=== PATIENT | female | born 1960 | race Caucasian/White ===

== ENCOUNTER → 2017-12-17 | Outpatient (CLI) | payer OTHER ==
[~2017-12-17] MED LIST: ATEN100; LASIX; LEVSOD25 PO; LISI20; POTCHL10ER PO; WARF2.5
[2017-12-17 15:15] LABS: BASOPHILS ABSOLUTE AUTO 0.03 K/mm3 (0.00-0.23); BASOPHILS PERCENT AUTO 1 % (0-2); EOSINOPHILS ABSOLUTE AUTO 0.31 K/mm3 (0.00-0.68); EOSINOPHILS PERCENT AUTO 6 % (0-6); Hematocrit 37.9 % (33.0-51.0); Hemoglobin 11.6 g/dL (11.5-16.0); IMMATURE GRAN ABSOLUTE AUTO 0.02 K/mm3 (0.00-0.10); IMMATURE GRAN PERCENT AUTO 0 % (0-1); LYMPHOCYTES ABSOLUTE AUTO 0.77 K/mm3 (0.84-5.20); LYMPHOCYTES PERCENT AUTO 14 % (21-46); MONOCYTES ABSOLUTE AUTO 0.31 K/mm3 (0.16-1.47); MONOCYTES PERCENT AUTO 6 % (4-13); Mean Corpuscular HGB 29.3 pg (26.0-34.0); Mean Corpuscular HGB Conc 30.6 g/dL (31.5-36.5); Mean Corpuscular Volume 96 fL (80-100); Mean Platelet Volume 12.9 fL (9.1-12.4); NEUTROPHILS ABSOLUTE AUTO 3.96 K/mm3 (1.96-9.15); NEUTROPHILS PERCENT AUTO 73 % (41-73); Platelet Count 135 K/mm3 (150-400); RDW Coefficient Variation 13.2 % (11.7-14.2); RDW Standard Deviation 46.5 fL (35.1-46.3); Red Blood Cell Count 3.96 M/mm3 (3.80-5.20)
[2017-12-17 15:34] LABS: Alanine Aminotransfer (ALT/SGP 25 U/L (12-78); Albumin, Blood 3.3 g/dL (3.4-5.0); Alk Phos 78 U/L (50-136); Anion Gap 7 mmol/L (6-16); Aspartate Aminotrans (AST/SGOT 23 U/L (12-37); Bilirubin, Total 0.8 mg/dL (0.1-1.0); Blood Urea Nitrogen 23 mg/dL (8-24); Bun/Creatinine Ratio 21.3 (12.0-20.0); CHOL/HDL RATIO 3.2; CO2, Blood 30 mmol/L (21-32); Calcium, Blood 8.4 mg/dL (8.5-10.1); Chloride, Blood 105 mmol/L (98-108); Cholesterol 135 mg/dL (50-200); Creatinine, Blood 1.08 mg/dL (0.40-1.00); Glomerular Filtration Rate 55 (60-); Glucose, Blood 98 mg/dL (70-99); HDL Cholesterol 42 mg/dL (>39); LDL/HDL RATIO 1.6; Low Density Lipoprotein Chol 69 mg/dL (0-110); Potassium, Blood 4.6 mmol/L (3.5-5.5); Sodium, Blood 142 mmol/L (136-145); Triglycerides 122 mg/dL (30-160); Very Low Density Lipoprot Chol 24 mg/dL (6-32)
[2017-12-17 15:42] LABS: Albumin/Globulin Ratio 0.8 (0.8-1.8); Globulin, Blood 3.9 g/dL (2.2-4.0); Total Protein, Blood 7.2 g/dL (6.4-8.2)
== END | disposition home or self-care (01) ==
LOC: OLS 12:11
PROVIDERS: Nurse Practitioner Family
DX: E78.5 Hyperlipidemia, unspecified (principal); E03.9 Hypothyroidism, unspecified; E55.9 Vitamin D deficiency, unspecified; R73.09 Other abnormal glucose; I10 Essential (primary) hypertension
CPT/HCPCS: 80053; 80061; 82652; 84443; 85025

== ENCOUNTER 2019-08-20 14:43 | Inpatient (IN) | payer OTHER ==
[~2019-08-20] VITALS: Ht 154.9 cm; Wt 251.6 kg
[~2019-08-20 14:43] MED LIST changes: -ATEN100; +FURO40 PO; -LASIX; -LEVSOD25 PO; +LEVSOD50 PO; +METO50ER PO; +POTA20PAC; -POTCHL10ER PO
[2019-08-20 15:13] LABS: BASOPHILS ABSOLUTE AUTO 0.01 K/mm3 (0.00-0.23); BASOPHILS PERCENT AUTO 0 % (0-2); EOSINOPHILS ABSOLUTE AUTO 0.18 K/mm3 (0.00-0.68); EOSINOPHILS PERCENT AUTO 4 % (0-6); Hematocrit 29.2 % (33.0-51.0); Hemoglobin 8.5 g/dL (11.5-16.0); IMMATURE GRAN ABSOLUTE AUTO 0.02 K/mm3 (0.00-0.10); IMMATURE GRAN PERCENT AUTO 0 % (0-1); LYMPHOCYTES ABSOLUTE AUTO 0.42 K/mm3 (0.84-5.20); LYMPHOCYTES PERCENT AUTO 8 % (21-46); MONOCYTES ABSOLUTE AUTO 0.39 K/mm3 (0.16-1.47); MONOCYTES PERCENT AUTO 8 % (4-13); Mean Corpuscular HGB 30.8 pg (26.0-34.0); Mean Corpuscular HGB Conc 29.1 g/dL (31.5-36.5); Mean Corpuscular Volume 106 fL (80-100); Mean Platelet Volume 12.1 fL (9.1-12.4); NEUTROPHILS ABSOLUTE AUTO 4.14 K/mm3 (1.96-9.15); NEUTROPHILS PERCENT AUTO 80 % (41-73); Platelet Count 112 K/mm3 (150-400); RDW Standard Deviation 53.2 fL (35.1-46.3); Red Blood Cell Count 2.76 M/mm3 (3.80-5.20); White Blood Cell Count 5.16 K/mm3 (4.00-11.30)
[2019-08-20 15:31] LABS: Alanine Aminotransfer (ALT/SGP 17 U/L (12-78); Albumin, Blood 3.1 g/dL (3.4-5.0); Albumin/Globulin Ratio 0.8 (0.8-1.8); Alk Phos 75 U/L (50-136); Anion Gap 2 mmol/L (6-16); Aspartate Aminotrans (AST/SGOT 14 U/L (12-37); Bilirubin, Total 0.6 mg/dL (0.1-1.0); Blood Urea Nitrogen 44 mg/dL (8-24); Bun/Creatinine Ratio 26.2 (12.0-20.0); CO2, Blood 26 mmol/L (21-32); Calcium, Blood 8.9 mg/dL (8.5-10.1); Chloride, Blood 114 mmol/L (98-108); Creatinine, Blood 1.68 mg/dL (0.40-1.00); Globulin, Blood 3.7 g/dL (2.2-4.0); Glomerular Filtration Rate 33 (60-); Glucose, Blood 118 mg/dL (70-99); Potassium, Blood 5.5 mmol/L (3.5-5.5); Sodium, Blood 142 mmol/L (136-145); Total Protein, Blood 6.8 g/dL (6.4-8.2); Troponin I <0.015 ng/mL (0.000-0.040)
[2019-08-20 15:40] LABS: Source, Urine Catheter
[2019-08-20 15:59] LABS: Bilirubin, Urine Neg (Neg); Blood, Urine 3+ (Neg); Color, Urine Yellow (P-Yellow); Glucose Qualitative, Urine Neg (Neg); Ketones, Urine Neg (Neg); Leukocyte Esterase, Urine 1+ (Neg); Nitrite, Urine Pos (Neg); Protein, Urine 1+ (Neg); Urobilinogen, Urine NORM (Normal)
[2019-08-20] MEDS ORDERED: THERA-D2000 UNIT PO (16:42)
[2019-08-20 16:44] LABS: Appearance, Urine Hazy (Clear)
[2019-08-20] MEDS ORDERED: SPIRIVA RESPIMAT4 G1 INH (16:45)
[2019-08-20] MEDS ORDERED: LOSA50 PO (16:45)
[2019-08-20 16:46] LABS: Amorphous Light (0-Heavy); Bacteria Many /hpf; Hyaline Casts 0-2 /lpf (0-2); Squamous Epithelial Cells Mod /hpf (Few)
[2019-08-20] MEDS ORDERED: BUDE6HFA INH (16:52)
[2019-08-20] MEDS ORDERED: Magnesium500 M1 PO (16:54)
[2019-08-20 18:08] LABS: Percent Saturation 19.8 % (15.0-50.0)
[2019-08-20 18:30] LABS: Thyroid Stimulating Hormone 2.38 uIU/mL (0.360-4.800)
[2019-08-21 02:03] LABS: BASOPHILS ABSOLUTE AUTO 0.02 K/mm3 (0.00-0.23); BASOPHILS PERCENT AUTO 0 % (0-2); EOSINOPHILS ABSOLUTE AUTO 0.24 K/mm3 (0.00-0.68); EOSINOPHILS PERCENT AUTO 5 % (0-6); Hematocrit 27.2 % (33.0-51.0); IMMATURE GRAN ABSOLUTE AUTO 0.01 K/mm3 (0.00-0.10); IMMATURE GRAN PERCENT AUTO 0 % (0-1); LYMPHOCYTES ABSOLUTE AUTO 0.63 K/mm3 (0.84-5.20); LYMPHOCYTES PERCENT AUTO 12 % (21-46); MONOCYTES ABSOLUTE AUTO 0.44 K/mm3 (0.16-1.47); MONOCYTES PERCENT AUTO 8 % (4-13); Mean Corpuscular HGB Conc 29.4 g/dL (31.5-36.5); Mean Corpuscular Volume 105 fL (80-100); Mean Platelet Volume 11.8 fL (9.1-12.4); NEUTROPHILS PERCENT AUTO 75 % (41-73); Platelet Count 115 K/mm3 (150-400); RDW Coefficient Variation 13.9 % (11.7-14.2); RDW Standard Deviation 53.8 fL (35.1-46.3); Red Blood Cell Count 2.58 M/mm3 (3.80-5.20); White Blood Cell Count 5.34 K/mm3 (4.00-11.30)
[2019-08-21 02:23] LABS: Anion Gap 4 mmol/L (6-16); Blood Urea Nitrogen 46 mg/dL (8-24); Bun/Creatinine Ratio 26.9 (12.0-20.0); CO2, Blood 27 mmol/L (21-32); Calcium, Blood 8.8 mg/dL (8.5-10.1); Chloride, Blood 113 mmol/L (98-108); Creatinine, Blood 1.71 mg/dL (0.40-1.00); Glomerular Filtration Rate 32 (60-); Glucose, Blood 106 mg/dL (70-99); Magnesium, Blood 2.4 mg/dL (1.6-2.4); Phosphorus, Blood 3.6 mg/dL (2.5-4.9); Sodium, Blood 144 mmol/L (136-145); Troponin I <0.015 ng/mL (0.000-0.040)
--- NOTE | 2019-08-21 05:55 | NUR ---
SHIFT SUMMARY ADMIT @ 194. AOX4. LS DIM, SOB W/ACTIVITY, 3L O2 VIA NC. PT WEARS 3L @ HOME. HUMIDIFIED O2 ADDED. NO C/O NAUSEA. STOOLS HAVE BEEN LOOSE/WATERY, CDIFF SAMPLE ORDERED, STILL NEEDS TO BE COLLECTED. PAIN RATED 8/10, GENERALIZED. SKIN IS VERY RED AND SCABBED FROM PT BEING COVERED IN STOOL WHEN FOUND BY EMS. L UPPER ARM IV IS SL. ROMERO DRAINING CLEAR YELLOW. TROP (-) X2. NEURO INTACT. SOME SORES IN FOLDS. ULCER ON 3RD TOE, L FOOT OPEN TO AIR. TELE READS NSR 75. TYLENOL ORDERED FOR HEADACHE THIS AM.
--- NOTE | 2019-08-21 12:53 | NUR ---
Echocardiogram completed.
[2019-08-22 05:46] LABS: Albumin, Blood 2.7 g/dL (3.4-5.0); Anion Gap 6 mmol/L (6-16); Blood Urea Nitrogen 44 mg/dL (8-24); Bun/Creatinine Ratio 24.7 (12.0-20.0); CO2, Blood 26 mmol/L (21-32); Calcium, Blood 8.4 mg/dL (8.5-10.1); Chloride, Blood 111 mmol/L (98-108); Creatinine, Blood 1.78 mg/dL (0.40-1.00); Glomerular Filtration Rate 31 (60-); Glucose, Blood 94 mg/dL (70-99); Phosphorus, Blood 3.5 mg/dL (2.5-4.9); Potassium, Blood 4.7 mmol/L (3.5-5.5); Sodium, Blood 143 mmol/L (136-145)
--- NOTE | 2019-08-22 06:39 | NUR ---
SHIFT SUMMARY PT IS RESTING IN BED T/O NIGHT, AWAKENS TO VERBAL STIMULI, IS A&OX4. SKIN FOLDS OPEN ABRASIONS WITH FOUL, YEASTY ODOR. NYSTATIN TO FOLDS TID. FOLDS TO BLE, ABD, UNDER BREASTS, PANNUS. UNDER BREASTS AND RLE HAS OPENA AREAS WITH MEPILEX IN PLACE. SKIN TO BLE IS BROWN AND HARDENED. PT DENIES PAIN. TELE IN PLACE; NSR @ 68 BPM. LS DIM. ON 3L VIA NC; BASELINE. ROMERO IN PLACE IS PATENT AND DRAINING. CONTINENT WITH BEDPAN. PT IS MORBIDLY OBESE, LIFT USED FOR TRANSFER. PT REPORTS NOT BEING ABLE TO WALK AT HOME, WAS FOUND DOWN AND UNKNOWN AMOUNT OF TIME PT WAS DOWN FOR. NO OTHER CHANGES TO REPORT. WILL CONT TO MONITOR AND PROVIDE CARE UNTIL PRESUMED BY ONCOMING RN.
--- NOTE | 2019-08-22 17:58 | NUR ---
SHIFT SUMMARY PT ABD WOUNDS REDRESSED & CLEANED THIS SHIFT. NO OTHER CHANGES IN ASSESSMENT AT THIS TIME. VSS. PT ORMERO PATENT & DRAINING. WILL CONTINUE TO MONITOR UNTIL TURNOVER IS COMPLETE. PHYSICAL THERAPY ON THE CASE.
--- NOTE | 2019-08-23 04:14 | NUR ---
SHIFT SUMMARY NO ACUTE CHANGES OVERNIGHT. NYSTATIN APPLIED TO ABD FOLDS, BLE FOLDS, BREAST FOLDS, PANNUS. SEVERAL MEPILEX APPLIED TO THE ABD FOLDS, DRESSING C/D/I. CHUCKS UNDER BLE TO COLLECT DRAINAGE, HAS BEEN CHANGED TWICE TONIGHT FOR SATURATION. FOLDS WITH FOUL, YEASTY ODOR. PT DENIES ANY PAIN OR DISCOMFORT. PLAN IS TO D/C TO SNF. WILL CONT TO MONITOR AND PROVIDE CARE UNTIL PRESUMED BY ONCOMING RN.
[2019-08-23 05:50] LABS: Albumin, Blood 2.7 g/dL (3.4-5.0); Anion Gap 4 mmol/L (6-16); Blood Urea Nitrogen 45 mg/dL (8-24); Bun/Creatinine Ratio 23.8 (12.0-20.0); CO2, Blood 28 mmol/L (21-32); Calcium, Blood 8.2 mg/dL (8.5-10.1); Chloride, Blood 108 mmol/L (98-108); Creatinine, Blood 1.89 mg/dL (0.40-1.00); Glomerular Filtration Rate 29 (60-); Glucose, Blood 93 mg/dL (70-99); Phosphorus, Blood 3.3 mg/dL (2.5-4.9); Potassium, Blood 4.4 mmol/L (3.5-5.5); Sodium, Blood 140 mmol/L (136-145)
--- NOTE | 2019-08-23 17:00 | NUR ---
No acute changes noted. No current complaints of pain or discomfort noted. Patient is on O2 @ 2 liters via nasal cannula which is her baseline. No other issues noted at this time. No bowel movements noted this shift. Will continue to monitor for changes.
[2019-08-24 06:08] LABS: Albumin, Blood 2.8 g/dL (3.4-5.0); Anion Gap 5 mmol/L (6-16); Blood Urea Nitrogen 43 mg/dL (8-24); CO2, Blood 28 mmol/L (21-32); Calcium, Blood 8.2 mg/dL (8.5-10.1); Chloride, Blood 107 mmol/L (98-108); Creatinine, Blood 1.79 mg/dL (0.40-1.00); Glomerular Filtration Rate 31 (60-); Glucose, Blood 104 mg/dL (70-99); Phosphorus, Blood 3.1 mg/dL (2.5-4.9); Potassium, Blood 4.6 mmol/L (3.5-5.5); Sodium, Blood 140 mmol/L (136-145)
--- NOTE | 2019-08-24 06:50 | NUR ---
pt had a large formed bm this shift. no sample sent as stool was not loose. pt had no complaint of pain or nausea this shift. and she received nystatin to the yeasty areas between the folds of her skin. she had 600 ml out with her nath this shift.
[2019-08-24 14:03] LABS: PCO2 Arterial 40.4 mmHg (35-45); PO2 Arterial 63.7 mmHg (80-100); pH Blood Arterial 7.44 (7.35-7.45)
--- NOTE | 2019-08-24 19:13 | NUR ---
SLEEPING AT THIS TIME. EARLIER TODAY THE PT. HAD SOB WITH PT DESATTING TO THE 80'S NOTIFIED AND RT CALLED. ABG WAS TAKEN AND PT. PLACED ON BIPAP, PT. OXYGEN LEVEL CAME UP WITH THE BIPAP BUT PT. BECAME NAUSEATED SO RT REMOVED BIPAP AND PLACED PT. ON NC AND CONTINUOUS BIOX. PT. DID NOT HAVE ANY FURTHER EPISODES T/O THE SHIFT.
--- NOTE | 2019-08-24 22:33 | NUR ---
PATIENT SLEEPING STATING 97% ON CONTINUOUS PULSE OXIMETRY AND 3L O2 NC.
--- NOTE | 2019-08-25 03:34 | NUR ---
SHIFT SUMMARY PATIENT HAD NO ACUTE CHANGES OBSERVED. AXOX 3 AND BEDREST. STATING 97% ON 3L N/C ON CONTINUOUS PULSE OXIMETRY. TAKES MEDICATION WITH WATER. DENIES PAIN, SOB, AND N/V. NYSTATIN POWER APPLIED TO FOLDS. PIV REMAINS INTACT. WARHEAD MAINTENANCE SPECIALIST REPORTS NSR 79. ROMERO PATENT AND DRAINING. VSS/AFEBRILE. MORBIDLY OBESE. MEPILEX CHANGED ON RIGHT OUTER LEG. CALL LIGHT IN REACH. BED IN LOWEST POSITION. WILL CONTINUE TO MONITOR UNTIL DAY SHIFT NURSE ASSUMES CARE.
[2019-08-25 09:21] LABS: Albumin, Blood 2.8 g/dL (3.4-5.0); Anion Gap 3 mmol/L (6-16); Blood Urea Nitrogen 46 mg/dL (8-24); Bun/Creatinine Ratio 21.6 (12.0-20.0); CO2, Blood 29 mmol/L (21-32); Calcium, Blood 8.3 mg/dL (8.5-10.1); Chloride, Blood 103 mmol/L (98-108); Creatinine, Blood 2.13 mg/dL (0.40-1.00); Glomerular Filtration Rate 25 (60-); Glucose, Blood 140 mg/dL (70-99); Phosphorus, Blood 3.5 mg/dL (2.5-4.9); Sodium, Blood 135 mmol/L (136-145)
--- NOTE | 2019-08-25 11:34 | NUR ---
DR. MELENDREZ CONSULT CALLED TO CELL PHONE, NEW ORDERS RECIEVED.
--- NOTE | 2019-08-25 17:35 | NUR ---
SHIFT SUMMARY. A&OX4, BEDFAST, PT IS AWARE OF LIMITATIONS AND CALLS APPROPRIATLY. PT DENIES PAIN, SOB, N/V. LUNGS CLEAR. CONTINUES WITH 3L O2 NC, WHICH IS PT'S BASELINE. PT RECIEVED BEDBATH TODAY, ALL FOLDS CLEANSED DRIED, NYSTATIN POWDER APPLIED, PILLOW SHEETS APPLIED TO FOLDS. REDNESS AND STRONG YEASTY SMELL TO EACH ABD, EDIL, AND LEG FOLDS. CATH CARE COMPLETED. PT PLACED ON NEW BARIATRIC BED, PT REPORTS INCREASED COMFORT. NO NEW CHANGES OR CONCERNS.
--- NOTE | 2019-08-25 18:32 | NUR ---
Initial Visit: Pt with new diagnosis of CHF, diastolic. She reports that she does not know much about her disease. Reviewed s/s of disease, treatment. Instructed on hydrolazine and isosorbide for managment. She states that she is very compliant with medications and treatments. Pt lives with her aged mother. She reports that they "help eachother." She has a sister in [facility], who is planning on moving closer to the family. She states that she is here rather than in [facility] more and more, as she takes on care of her sister and mother. Pt seems to be coping effectively at this time, however she states that she is ready to be home. She doesn't have any concerns at this time. Recommended to read the booklet when she is at home to understand more about her disease and she is able to be comfortable in her own envionment. Instructed to make a list of her questions to present to her PCP. She sees . Will remain available.
--- NOTE | 2019-08-26 04:34 | NUR ---
SHIFT SUMMARY PATIENT DRY N/V X ONE AND ZOFRAN GIVEN PER EMAR. AXO X3 AND BEDREST. MORBIDLY OBESE. ON 3L O2 NC BASELINE. ROMERO PATENT AND DRAINING. PIV REMAINS INTACT. SOLUTIONS ENGINEER REPORTS NSR 71. VSS/AFEBRILE. DR MELENDREZ SAW PATIENT JUST BEFORE MIDNIGHT. DENIES PAIN AND SOB. ON CONTINUOUS PULSE OXIMETRY STATING 99%. CALL CALL LIGHT IN REACH. BED IN LOWEST POSITION. WILL CONTINUE TO MONITOR UNTIL DAY SHIFT NURSE ASSUMES CARE.
[2019-08-26 05:06] LABS: Hematocrit 26.7 % (33.0-51.0); Hemoglobin 7.9 g/dL (11.5-16.0)
[2019-08-26 05:28] LABS: Albumin, Blood 2.7 g/dL (3.4-5.0); Anion Gap 5 mmol/L (6-16); Blood Urea Nitrogen 52 mg/dL (8-24); Bun/Creatinine Ratio 21.8 (12.0-20.0); CO2, Blood 27 mmol/L (21-32); Calcium, Blood 8.2 mg/dL (8.5-10.1); Chloride, Blood 104 mmol/L (98-108); Creatinine, Blood 2.38 mg/dL (0.40-1.00); Glomerular Filtration Rate 22 (60-); Glucose, Blood 121 mg/dL (70-99); Phosphorus, Blood 3.4 mg/dL (2.5-4.9); Potassium, Blood 5.5 mmol/L (3.5-5.5); Sodium, Blood 136 mmol/L (136-145)
[2019-08-26 09:52] LABS: Hematocrit 26.7 % (33.0-51.0)
--- NOTE | 2019-08-26 16:20 | NUR ---
1600 PT TO IMAGING FOR ABD XRAY VIA BED ACCOMPANIED BY THIS RN AND TIME STUDY TECHNOLOGIST.
--- NOTE | 2019-08-26 18:25 | NUR ---
SHIFT SUMMARY. PT WITH INTERMITTENT NAUSEA WITHOUT VOMITTING THROUGHOUT SHIFT, MANAGED WELL WITH CURRENT ORDERS. PT ONLY ABLE TO TOLERATE SMALL SIPS OF WATER, PT REFUSED ALL MEALS. PT REPORTED ABD DISCOMFORT, DENIED THE NEED FOR PAIN MEDICATION. PT WITH SOB WHEN LAYING FLAT FOR REPOSITIONING, ON 4L O2 NC, DR. GUILLAUME EMPHASIZED PT IS TO USE CPAP AT NIGHT. ABD XRAY COMPLETED, PENDING RESULTS.
[2019-08-27 05:35] LABS: BASOPHILS ABSOLUTE AUTO 0.01 K/mm3 (0.00-0.23); BASOPHILS PERCENT AUTO 0 % (0-2); EOSINOPHILS ABSOLUTE AUTO 0.31 K/mm3 (0.00-0.68); EOSINOPHILS PERCENT AUTO 5 % (0-6); Hematocrit 26.4 % (33.0-51.0); Hemoglobin 8.1 g/dL (11.5-16.0); IMMATURE GRAN ABSOLUTE AUTO 0.02 K/mm3 (0.00-0.10); IMMATURE GRAN PERCENT AUTO 0 % (0-1); LYMPHOCYTES ABSOLUTE AUTO 0.48 K/mm3 (0.84-5.20); LYMPHOCYTES PERCENT AUTO 8 % (21-46); MONOCYTES ABSOLUTE AUTO 0.77 K/mm3 (0.16-1.47); MONOCYTES PERCENT AUTO 13 % (4-13); Mean Corpuscular HGB 31.8 pg (26.0-34.0); Mean Corpuscular HGB Conc 30.7 g/dL (31.5-36.5); Mean Corpuscular Volume 104 fL (80-100); NEUTROPHILS ABSOLUTE AUTO 4.35 K/mm3 (1.96-9.15); NEUTROPHILS PERCENT AUTO 73 % (41-73); Platelet Count 93 K/mm3 (150-400); RDW Coefficient Variation 14.1 % (11.7-14.2); RDW Standard Deviation 53.9 fL (35.1-46.3); Red Blood Cell Count 2.55 M/mm3 (3.80-5.20); White Blood Cell Count 5.94 K/mm3 (4.00-11.30)
[2019-08-27 05:58] LABS: Magnesium, Blood 2.6 mg/dL (1.6-2.4)
[2019-08-27 05:59] LABS: Albumin, Blood 2.7 g/dL (3.4-5.0); Anion Gap 6 mmol/L (6-16); Blood Urea Nitrogen 56 mg/dL (8-24); Bun/Creatinine Ratio 25.7 (12.0-20.0); CO2, Blood 27 mmol/L (21-32); Calcium, Blood 8.3 mg/dL (8.5-10.1); Chloride, Blood 101 mmol/L (98-108); Creatinine, Blood 2.18 mg/dL (0.40-1.00); Glomerular Filtration Rate 23 (60-); Glucose, Blood 100 mg/dL (70-99); Phosphorus, Blood 3.8 mg/dL (2.5-4.9); Potassium, Blood 5.3 mmol/L (3.5-5.5); Sodium, Blood 134 mmol/L (136-145)
--- NOTE | 2019-08-27 06:32 | NUR ---
SLEPT INTERMITTANTLY. UNABLE TO TOLERATE CPAP FACE OR NOSE MASK. MINIMAL COMPLAINTS OF DISCOMFORT EXCEP[T WITH WOUND CLEANSING, AND TYLENOL WORKED WELL FOR THAT. WAS ABLE TO TOLERTE PO MEDS AT HS OVERNIGHT.
--- NOTE | 2019-08-27 16:40 | NUR ---
SUMMARY PT IS A/O X4, PLEASANT AFFECT. SHE IS VERY OBESE, >600 LBS/REPORT. SHE STATE UNABLE TO AMBULATE OR BR WT @ THIS TIME. USING OVERHEAD LIFT. MULT ABDOMINAL, GROIN & BLE SKIN FOLDS. SITES CLEANED W SOAP/WATER, NYSTATIN POWDER APPLIED & PILLOW CASES PLACED TO PROMOTE DRYNESS. PT STATED CONCERNS FOR CONSTIPATION THIS AM, DR GUILLAUME ORDER BOWEL MEDS COLACE & SENNA HOWEVER NO RESULTS, FOLLOWED W MOM. SHE HAS HAD TWO STOOLS THIS AFTERNOON, STATES RELIEF. DRY, THICK HARD SKIN AREAS OF BLE & PANNUS, LOTIONED GOOD W BLUE TOP BARRIER OINT. VSS.
[2019-08-28 04:57] LABS: Hematocrit 27.6 % (33.0-51.0); Hemoglobin 8.3 g/dL (11.5-16.0)
[2019-08-28 05:21] LABS: Albumin, Blood 2.6 g/dL (3.4-5.0); Anion Gap 5 mmol/L (6-16); Blood Urea Nitrogen 57 mg/dL (8-24); Bun/Creatinine Ratio 29.1 (12.0-20.0); CO2, Blood 28 mmol/L (21-32); Calcium, Blood 8.4 mg/dL (8.5-10.1); Chloride, Blood 101 mmol/L (98-108); Creatinine, Blood 1.96 mg/dL (0.40-1.00); Glomerular Filtration Rate 28 (60-); Glucose, Blood 114 mg/dL (70-99); Magnesium, Blood 2.9 mg/dL (1.6-2.4); Phosphorus, Blood 3.5 mg/dL (2.5-4.9); Potassium, Blood 5.3 mmol/L (3.5-5.5); Sodium, Blood 134 mmol/L (136-145)
--- NOTE | 2019-08-28 07:25 | NUR ---
SUMMARY: PT HAD SEVERAL BMS AND WAS ON/OFF THE BEDPAN THRU THE SHIFT. SAYS SHE IS FEELING BETTER THIS MORNING. SHE RECEIVED TYLENOL FOR HEADACHE PER EMAR. BED BATH AND NYSTATIN TO FOLDS OF SKIN. WILL XIMENA TO MONITOR
--- NOTE | 2019-08-28 17:34 | NUR ---
SUMMARY PT IS A/O X4, PLEASANT/COOPERATIVE AFFECT. SEVERE OBESITY, PHY THER HAS BEEN UNABLE TO ASSIST HER OOB R/T HEIGHT OF BARIATRIC BED, SHE CONTINUES BEDBOUND @ THIS TIME. SHE STATE STRENGTH IMPROVING, SHE HAS BEEN ABLE TO TURN WITH ASSIST FOR BEDPAN, LINEN CHANGE, ETC. USING OVERHEAD LIFT FOR REPOSITIONING. SHE DECLINE BOWEL MEDS TODAY D/T MULT STOOLS, STATE CONSTIPATION RELIEF. PARTIAL BEDBATH PROVIDED, SKINFOLDS CLEANED, NYSTATIN POWDER TO AFFECTED AREAS. LOTION APPLIED TO THICK/ROUGH SKIN BLE & PANNUS. GFR 28, DR MELENDREZ MANAGING RENAL FX, RESTART IV LASIX TODAY. ROMERO CATH CONTINUES. VSS.
[2019-08-29 05:13] LABS: Hematocrit 27.6 % (33.0-51.0); Hemoglobin 8.2 g/dL (11.5-16.0)
[2019-08-29 05:34] LABS: Albumin, Blood 2.5 g/dL (3.4-5.0); Anion Gap 4 mmol/L (6-16); Blood Urea Nitrogen 54 mg/dL (8-24); Bun/Creatinine Ratio 29.3 (12.0-20.0); CO2, Blood 30 mmol/L (21-32); Calcium, Blood 8.3 mg/dL (8.5-10.1); Chloride, Blood 100 mmol/L (98-108); Creatinine, Blood 1.84 mg/dL (0.40-1.00); Glomerular Filtration Rate 30 (60-); Glucose, Blood 108 mg/dL (70-99); Magnesium, Blood 2.8 mg/dL (1.6-2.4); Phosphorus, Blood 3.5 mg/dL (2.5-4.9); Sodium, Blood 134 mmol/L (136-145)
--- NOTE | 2019-08-29 06:26 | NUR ---
SHIFT SUMMARY PT IS A 59 Y/O FEMALE, ADMITTED FOR CHF EXACERBATION. PT IS CURRENTLY ON BEDREST, NONAMBULATORY AND A LIFT. SHE IS A&O X 4. PT REPORTED ABDOMINAL CRAMPS, WHICH SHE WAS TREATED WITH PRN TYLENOL ONCE AT BEDTIME. NO COMPLAINTS OF NAUSEA OR SOB. VITAL SIGNS STABLE. PT SLEPT WELL DURING THE NIGHT. NO ACUTE CHANGES IN PT CONDITION NOTED. WILL CONTINUE TO MONITOR AND TREAT PER EMAR UNTIL HAND OFF TO DAY SHIFT RN.
--- NOTE | 2019-08-29 08:52 | NUR ---
PATIENT PERMISSION PATIENT GAVE THIS STUDENT NURSE PERMISSION TO PROVIDE CARE ON 08/29/2019 FROM [phone].
--- NOTE | 2019-08-29 18:07 | NUR ---
SHIFT SUMMARY. A&OX4, PLEASANT AND COOPERATIVE. PT CONTINUES WITH POOR MEAL INTAKE, PT HAD TWO FORMED BROWN STOOLS TODAY WITH BEDPAN. ROMERO CATHETER PATENT AND DRAINING. NO N/V, SOB WITH EXERTION. CONTINUES WITH 2L O2 NC, LUNGS CLEAR. NO NEW CHANGES OR CONCERNS.
--- NOTE | 2019-08-29 19:00 | NUR ---
ABD AND BODY FOLDS CLEANSED, DRIED, NYSTATIN POWDER AND PILLOW CASES APPLIED.
--- NOTE | 2019-08-30 06:08 | NUR ---
SHIFT SUMMARY A/O, ABLE TO MAKE NEEDS KNOWN. COOPERATIVE WITH CARE. CALLS AND ANSWERS QUESTIONS APPROPRIATELY. NO C/O PAIN/DISCOMFORT. STRENGTH CONTINUES TO INCREASE OVER TIME. REQUIRING 2P REPOSITIONING. APPEARED TO REST MUCH OF THE NIGHT. 3L NC, BASELINE. ATTEMPS BIPAP AT TIMES. NO ACUTE CHANGES OVERNIGHT. VSS/AFEBRILE. BED IN LOWEST POSITION. CALL LIGHT AND BELONGINGS WITHIN REACH. WCTM. REPORT TO ONCOMING RN.
[2019-08-30 06:14] LABS: Albumin, Blood 2.6 g/dL (3.4-5.0); Anion Gap 3 mmol/L (6-16); Blood Urea Nitrogen 51 mg/dL (8-24); Bun/Creatinine Ratio 30.2 (12.0-20.0); CO2, Blood 31 mmol/L (21-32); Calcium, Blood 8.2 mg/dL (8.5-10.1); Chloride, Blood 101 mmol/L (98-108); Creatinine, Blood 1.69 mg/dL (0.40-1.00); Glomerular Filtration Rate 33 (60-); Glucose, Blood 105 mg/dL (70-99); Magnesium, Blood 2.6 mg/dL (1.6-2.4); Phosphorus, Blood 3.6 mg/dL (2.5-4.9); Sodium, Blood 135 mmol/L (136-145)
[2019-08-30 06:29] LABS: Albumin, Blood 2.5 g/dL (3.4-5.0); Anion Gap 6 mmol/L (6-16); Blood Urea Nitrogen 52 mg/dL (8-24); Bun/Creatinine Ratio 30.8 (12.0-20.0); CO2, Blood 28 mmol/L (21-32); Calcium, Blood 8.4 mg/dL (8.5-10.1); Chloride, Blood 100 mmol/L (98-108); Creatinine, Blood 1.69 mg/dL (0.40-1.00); Glomerular Filtration Rate 33 (60-); Glucose, Blood 106 mg/dL (70-99); Phosphorus, Blood 3.5 mg/dL (2.5-4.9); Potassium, Blood 4.9 mmol/L (3.5-5.5); Sodium, Blood 134 mmol/L (136-145)
--- NOTE | 2019-08-30 18:17 | NUR ---
SHIFT SUMMARY. PT ASSISTED TO LOVESEAT STYLE COUCH WITH USE OF LIFT WITH THIS RN AND PT/OT. PT TOLERATED SITTING UP FOR APPROXIMATELY ONE HOUR POST THERAPY, PT THEN REPORTED THAT HER FEET AND LEGS HAD BECAME NUMB. PT THEN REPORTED KNEE PAIN, PAIN MANAGED WELL WITH PRN APAP, NUMBNESS SUBSIDED ONCE IN BED. PT DENIES N/V. SOB WITH EXERTION. NO NEW CHANGES OR CONCERNS.
--- NOTE | 2019-08-30 19:16 | NUR ---
SKIN FOLDS, CLEANSED, DRIED, NYSTATIN AND PILLOW CASES APPLIED. REDNESS TO SKIN FOLDS HAS IMPROVED SIGNIFICANTLY FROM WHEN FIRST OBSERVED Thursday08/25/19.
[2019-08-31 04:40] LABS: Hematocrit 27.4 % (33.0-51.0); Hemoglobin 8.3 g/dL (11.5-16.0)
[2019-08-31 05:08] LABS: Albumin, Blood 2.5 g/dL (3.4-5.0); Anion Gap 5 mmol/L (6-16); Blood Urea Nitrogen 49 mg/dL (8-24); Bun/Creatinine Ratio 30.2 (12.0-20.0); CO2, Blood 29 mmol/L (21-32); Calcium, Blood 8.4 mg/dL (8.5-10.1); Chloride, Blood 101 mmol/L (98-108); Creatinine, Blood 1.62 mg/dL (0.40-1.00); Glomerular Filtration Rate 34 (60-); Glucose, Blood 110 mg/dL (70-99); Magnesium, Blood 2.5 mg/dL (1.6-2.4); Phosphorus, Blood 3.1 mg/dL (2.5-4.9); Potassium, Blood 4.7 mmol/L (3.5-5.5); Sodium, Blood 135 mmol/L (136-145)
--- NOTE | 2019-08-31 05:18 | NUR ---
SHIFT SUMMARY: 59 Y/O OBESE FEMALE, PLEASANT AND COOPERATIVE. SLEPT OFF AND ON THROUGHOUT THE NIGHT. SHE HAD LINEN CHANGES WHEN PLACED ON THE BED BROTHERS WITH LITTLE TO NO RESULTS. CATHETER REMAINED PATIENT AND DRAINING DARK YELLOW URINE. SKIN FOLDS HAVE PILLOW CASES WITH NYSTATIN TO PREVENT SKIN TO SKIN CONTACT. SOME AREAS ARE MORE OPEN THEN OTHERS. SHE HAS DRY SCALEY SKIN ON BLE, LOTION WAS APPLIED. WITH HELD THE STOOL SOFTNERS AND LATATIVES DUE TO INCREASE NUMBER OF BOWEL MOVMENTS ON DAY SHIFT. NO OTHER ACUTE CHANGES OCCURED THIS SHIFT. WILL REPORT TO DAY SHIFT RN.
--- NOTE | 2019-08-31 17:57 | NUR ---
PT A/O DURING THIS SHIFT. PT IS COOPERATIVE WITH CARE. PT WORKED WITH PT/OT THIS SHIFT. PT STATES NO PAIN. DISCHARGE AT HOLD AT THIS TIME DUE TO DISCHARGE PLANNING. SISTER BROUGHT IN HER HOME WHEELCHAIR. PT TURNED FREQUENTLY THROUGHOUT SHIFT. NO ADDITIONAL NEEDS AT THIS TIME. WILL CONTINUE TO MONITOR.
--- NOTE | 2019-09-01 04:28 | NUR ---
SHIFT SUMMARY PT PLEASANT AND COOPERATIVE. MORBIDLY OBESE. REMAINED IN BED THIS EVENING. REPORTING THAT SHE IS UNABLE TO WALK AT THIS TIME. YEASTY RASH IN ABD, GROIN, AND BREAST FOLDS. NYSTATIN POWDER APPLIED TO ALL FOLDS AND PILLOW CASES PLACED PER PT REQUEST. SMALL WOUNDS SCATTERED THROUGHOUT THE RASHY FOLDS. SCALEY THICK SKIN TO BLE'S. LOTION APPLIED PER EMAR. PT REPORTS MILD PAIN IN KNEES, MEDICATED X 1 W/ 650 MG TYLENOL. PT HAD A SMALL UNFORMED BROWN STOOL THIS EVENING. PT CONTINENT OF BOWEL, USING THE BEDPAN. ASSISTED W/ TURNING IN THE BED. ROMERO CATHETER IN PLACE. PATENT AND DRAINING YELLOW URINE. PT ON 3 L O2 NC WITH O2 SATS IN THE MID 90'S. VSS. NO ACUTE CHANGES THIS SHIFT. WILL CONTINUE TO MONITOR.
[2019-09-01 05:52] LABS: Hematocrit 26.6 % (33.0-51.0); Hemoglobin 8.1 g/dL (11.5-16.0)
[2019-09-01 06:19] LABS: Albumin, Blood 2.5 g/dL (3.4-5.0); Anion Gap 4 mmol/L (6-16); Blood Urea Nitrogen 45 mg/dL (8-24); Bun/Creatinine Ratio 29.4 (12.0-20.0); CO2, Blood 30 mmol/L (21-32); Calcium, Blood 8.4 mg/dL (8.5-10.1); Chloride, Blood 101 mmol/L (98-108); Creatinine, Blood 1.53 mg/dL (0.40-1.00); Glomerular Filtration Rate 37 (60-); Glucose, Blood 103 mg/dL (70-99); Magnesium, Blood 2.4 mg/dL (1.6-2.4); Phosphorus, Blood 2.7 mg/dL (2.5-4.9); Potassium, Blood 4.5 mmol/L (3.5-5.5); Sodium, Blood 135 mmol/L (136-145)
--- NOTE | 2019-09-01 16:47 | NUR ---
SHIFT SUMMARY NO ACUTE CHANGES. PATIENT DENIES PAIN, NAUSEA, AND SHORTNESS OF BREATH. PATIENT TRANSFERED TO WHEELCHAIR WITH CUEILING LIFT TODAY. PATIENT WAS UNABLE TO SIT COMFORTABLY IN THE WHEELCHAIR. PT AND OT WORKED WITH PATIENT TO ATTEMPT TO STAND PATIENT. PATIENT UNABLE TO STAND. SEVERAL STAFF REQUIRED TO SAFELY TRANSFER PATIENT BACK TO BED IN LIFT. PATIENT STATES SHE COULD STAND IF SHE HAD PROPER SEATING DESPITE HER WEAKNESS. SISTER AT BEDSIDE. CALL LIGHT IN REACH.
--- NOTE | 2019-09-02 04:31 | NUR ---
SHIFT SUMMARY NO ACUTE CHANGES THIS SHIFT. PT REMAINED IN BED THROUGHOUT THE NIGHT. PT ASSISTS WITH TURNING WHEN NEEDING TO USE THE BEDPAN BUT HAS A DIFFICULT TIME MOVING LOWER EXTREMETIES. ROMERO CATHETER REMAINS IN PLACE, PATENT AND DRAINING. YELLOW URINE W/ SEDIMENT. RASH IN ABD/GROIN/LEG FOLDS APPEARS SLIGHTLY BETTER THIS EVENING. NYSTATIN POWDER APPLIED. LOTION APPLIED TO THICK SCALEY SKIN OF BLE'S. PT REFUSED TO WEAR CPAP AT ALL THIS EVENING. REMAINED ON 3 L NC. THIS IS ALSO HER BASELINE DOSE AND PT REPORTS DUE TO FEELING CLAUSTROPHOBIC SHE IS NONCOMPLIANT W/ CPAP AT HOME WELL. NO ACUTE CHANGES THIS SHIFT. VITAL SIGNS STABLE.
[2019-09-02 05:19] LABS: Hematocrit 27.9 % (33.0-51.0); Hemoglobin 8.4 g/dL (11.5-16.0)
[2019-09-02 05:44] LABS: Albumin, Blood 2.5 g/dL (3.4-5.0); Anion Gap 4 mmol/L (6-16); Blood Urea Nitrogen 40 mg/dL (8-24); Bun/Creatinine Ratio 25.6 (12.0-20.0); CO2, Blood 30 mmol/L (21-32); Calcium, Blood 8.4 mg/dL (8.5-10.1); Chloride, Blood 101 mmol/L (98-108); Creatinine, Blood 1.56 mg/dL (0.40-1.00); Glomerular Filtration Rate 36 (60-); Glucose, Blood 149 mg/dL (70-99); Magnesium, Blood 2.2 mg/dL (1.6-2.4); Phosphorus, Blood 2.8 mg/dL (2.5-4.9); Potassium, Blood 4.1 mmol/L (3.5-5.5); Sodium, Blood 135 mmol/L (136-145)
--- NOTE | 2019-09-02 15:48 | NUR ---
SHIFT SUMMARY NO ACUTE CHANGES. PATIENT DENIES PAIN, NAUSEA, AND SHORTNESS OF BREATH. PATIENT HAVING FREQUENT FORMED STOOLS THIS SHIFT. PATIENT TRANSFERED TO BARIATRIC RECLINER VIA CEILING LIFT THIS AFTERNOON. PATIENT UP IN CHAIR FOR OVER AN HOUR. PATIENT STATES RECLINER IS VERY COMFORTABLE. PT AND OT WORKED WITH PATIENT THIS MORNING. CALL LIGHT IN REACH.
--- NOTE | 2019-09-03 04:00 | NUR ---
SHIFT SUMMARY PT STATES SHES BEEN HAVING FREQUENT LOOSE STOOLS. SHE HAD COMPLAINTS OF PAIN IN KNEES TREATED WITH TYLENOL. NO OTHER COMPLAINTS AT THIS TIME. WILL CONTINUE TO MONITOR.
[2019-09-03 05:06] LABS: Hematocrit 27.1 % (33.0-51.0); Hemoglobin 8.3 g/dL (11.5-16.0)
[2019-09-03 05:26] LABS: Albumin, Blood 2.5 g/dL (3.4-5.0); Anion Gap 4 mmol/L (6-16); Blood Urea Nitrogen 38 mg/dL (8-24); Bun/Creatinine Ratio 24.7 (12.0-20.0); CO2, Blood 30 mmol/L (21-32); Calcium, Blood 8.5 mg/dL (8.5-10.1); Chloride, Blood 103 mmol/L (98-108); Creatinine, Blood 1.54 mg/dL (0.40-1.00); Glomerular Filtration Rate 36 (60-); Glucose, Blood 104 mg/dL (70-99); Magnesium, Blood 2.2 mg/dL (1.6-2.4); Phosphorus, Blood 2.8 mg/dL (2.5-4.9); Potassium, Blood 4.3 mmol/L (3.5-5.5); Sodium, Blood 137 mmol/L (136-145)
--- NOTE | 2019-09-03 18:02 | NUR ---
SHIFT SUMMARY PT MORBIDLY OBESE, LYING IN BARIATRIC BED WATCHING TV. ADMITTED FOR CHF EXAC; IMPROVIING. ROMERO CATH, PATENT AND DRAINING CL. SEDIMENT IN TUBING, BUT URINE DRAINING APPEARS CLEAR. 2 FORMED BM'S THIS SHIFT. PT DECLINED BOWEL CARE THIS AM D/T LOOSE STOOLS YESTERDAY. BED BATH GIVEN TODAY, NYSTATIN TO MULTIPLE SKIN FOLDS. PT UP TO CHAIR FOR A WHILE, WORKED WITH P/T WHILE IN CHAIR. PT IMPROVING SLOWLY. IV TO RFA LEAKING WHEN IV IRON NEARING COMPLETION. PT DIFFICULT START. CHRG RN'S AWARE. DR KELLOGG NOTIFIED TO LEAVE OUT IV ACCESS. DEFERRED TO DR MELENDREZ IF PT COULD HAVE PO IRON. NO C/O. CALL LT IN REACH.
--- NOTE | 2019-09-04 03:57 | NUR ---
SHIFT SUMMARY PT'S SKIN SEEMS TO BE IMPROVING FROM THE SKIN CARE PRODUCTS PRESCRIBED. NO ACUTE CHANGES THIS SHIFT. WILL CONTINUE TO MONITOR.
[2019-09-04 04:38] LABS: Hematocrit 28.7 % (33.0-51.0); Hemoglobin 8.5 g/dL (11.5-16.0)
[2019-09-04 05:00] LABS: Albumin, Blood 2.5 g/dL (3.4-5.0); Anion Gap 3 mmol/L (6-16); Blood Urea Nitrogen 35 mg/dL (8-24); Bun/Creatinine Ratio 23.8 (12.0-20.0); CO2, Blood 31 mmol/L (21-32); Calcium, Blood 8.5 mg/dL (8.5-10.1); Chloride, Blood 102 mmol/L (98-108); Creatinine, Blood 1.47 mg/dL (0.40-1.00); Glomerular Filtration Rate 38 (60-); Glucose, Blood 117 mg/dL (70-99); Magnesium, Blood 2.1 mg/dL (1.6-2.4); Potassium, Blood 4.3 mmol/L (3.5-5.5); Sodium, Blood 136 mmol/L (136-145)
--- NOTE | 2019-09-04 18:12 | NUR ---
SHIFT SUMMARY PATIENT IS PLEASANT. DID NOT GET OUT OF BED TODAY, NO ACUTE CONCERNS PER PATIENT. STILL AWAITING PLACEMENT AT A FACILITY FOR REHAB.
--- NOTE | 2019-09-05 03:36 | NUR ---
SHIFT SUMMARY NO CHANGES THIS SHIFT. PT RESTING COMFORTABLY. WILL CONTINUE TO MONITOR.
[2019-09-05 05:10] LABS: Hematocrit 29.4 % (33.0-51.0); Hemoglobin 8.6 g/dL (11.5-16.0)
[2019-09-05 05:43] LABS: Albumin, Blood 2.6 g/dL (3.4-5.0); Anion Gap 5 mmol/L (6-16); Blood Urea Nitrogen 35 mg/dL (8-24); Bun/Creatinine Ratio 23.2 (12.0-20.0); CO2, Blood 30 mmol/L (21-32); Calcium, Blood 8.4 mg/dL (8.5-10.1); Chloride, Blood 102 mmol/L (98-108); Creatinine, Blood 1.51 mg/dL (0.40-1.00); Glomerular Filtration Rate 37 (60-); Glucose, Blood 104 mg/dL (70-99); Magnesium, Blood 2.1 mg/dL (1.6-2.4); Phosphorus, Blood 3.2 mg/dL (2.5-4.9); Potassium, Blood 4.1 mmol/L (3.5-5.5); Sodium, Blood 137 mmol/L (136-145)
--- NOTE | 2019-09-05 17:36 | NUR ---
Shift Summary A/Ox4. Pleasant and cooperative with care. Able to make needs known. Pt continues to have edema t/o. Denies pain, N/T, and N/V/D. One episode of pasty formed med brown/yellowish stool. Plan is to discharge home tomorrow when sister is home to receive patient. No other acute changes this shift.
[2019-09-06 05:01] LABS: Hematocrit 31.7 % (33.0-51.0); Hemoglobin 9.4 g/dL (11.5-16.0)
[2019-09-06 05:24] LABS: Albumin, Blood 2.8 g/dL (3.4-5.0); Anion Gap 6 mmol/L (6-16); Blood Urea Nitrogen 33 mg/dL (8-24); Bun/Creatinine Ratio 21.7 (12.0-20.0); CO2, Blood 31 mmol/L (21-32); Chloride, Blood 101 mmol/L (98-108); Creatinine, Blood 1.52 mg/dL (0.40-1.00); Glomerular Filtration Rate 37 (60-); Glucose, Blood 123 mg/dL (70-99); Sodium, Blood 138 mmol/L (136-145)
--- NOTE | 2019-09-06 06:09 | NUR ---
59 year old Female with morbid obesity and miltiple skin issues contines on bariatric bed to prevent further skin breakdown. Cleaned skin folds multiple times and wicking provided to prevent moisture and increased fungus. Skin tight and rash in multiple skin folds below breast and abd fold and behind knees. Linchen type appearance to bilateral le. Lac hydrin applied. also warty appearance to areas of skin. Oxygen 3 l nc as per baseline. PT has been working with PT OT but not able to get out of bed due to height of bariatric bed. Call approp, assists with bedpan use rolls side to side with lift draw sheet. Discharge home pending. PT IV fell out on day shift and DR Atkinson updated. No IV access order obtained and bladder scan Q 6 hrs prn obtained. PT voiding on bedpain and incontinent amts with bedpan use.
[2019-09-06] MEDS ORDERED: DOCU100 PO (08:29)
[2019-09-06] MEDS ORDERED: ISOMON20 PO (08:31)
[2019-09-06] MEDS ORDERED: HYDR10 PO (08:31)
[2019-09-06] MEDS ORDERED: LACT5TL TOP (08:32)
[2019-09-06] MEDS ORDERED: Pedi-Dri 100,0060 GM TOP (08:32)
[2019-09-06] MEDS ORDERED: SENN187 PO (08:33)
--- NOTE | 2019-09-06 09:36 | NUR ---
PATIENT DID NOT EAT BREAKFAST THIS SHIFT DUE TO NOT FEELING WELL. SHE STATED SHE WAS FEELING SICK TO HER STOMACH. RN NOTIFIED.
--- NOTE | 2019-09-06 13:50 | NUR ---
PATIENT DID NOT EAT LUNCH THIS SHIFT DUE TO NOT FEEING WELL. RN NOTIFIED.
--- NOTE | 2019-09-06 17:31 | NUR ---
PT DISCHARGED TO HOME WITH HOME HEALTH. PT TRANSFERED HOME BY [facility]. PT TRANSFERED TO [facility] BY [facility] IN ROOM. PT ALERT AND ORIENTED AND COOPERATIVE WITH CARE UPON DISCHARGE. PTS MOTHER NOTIFIED AT TIME OF DISCHARGE. CARE MANAGEMENT NOTIFIED OF DISCHARGE TO COORDINATE WITH RECEIVING PARTIES. PT BELONGINGS WITH PT UPON DISCHARGE. PT VERBALIZED UNDERSTANDING OF DISCHARGE PLAN.
== END 2019-09-06 17:08 | disposition home health service (06) | DRG 291 ==
LOC: ER 14:43 → ERHOLD 17:19 → ER 17:19 → MEDS 17:19 → ENPENDDIS 09-06 10:38 → MEDS 09-06 17:08
PROVIDERS: Family Medicine; Internal Medicine; Internal Medicine Nephrology; ADMIT Internal Medicine
DX: I13.0 Hypertensive heart and chronic kidney disease with heart failure and stage 1 through stage 4 chronic kidney disease, or unspecified chronic kidney disease (principal); J96.21 Acute and chronic respiratory failure with hypoxia; I50.33 Acute on chronic diastolic (congestive) heart failure; E66.2 Morbid (severe) obesity with alveolar hypoventilation; Z68.45 Body mass index [BMI] 70 or greater, adult; N17.9 Acute kidney failure, unspecified; E87.1 Hypo-osmolality and hyponatremia; Z87.891 Personal history of nicotine dependence; D69.6 Thrombocytopenia, unspecified; N18.3 Chronic kidney disease, stage 3 (moderate); I27.20 Pulmonary hypertension, unspecified; E87.5 Hyperkalemia; I89.0 Lymphedema, not elsewhere classified; L30.4 Erythema intertrigo; E03.9 Hypothyroidism, unspecified; Z91.19 Patient's noncompliance with other medical treatment and regimen; I50.810 Right heart failure, unspecified
CPT/HCPCS: 36415; 36600; 51702; 71045; 74018; 80048; 80053; 80069; 81001; 82607; 82728; 82803; 82947; 83540; 83550; 83735; 83880; 84100; 84443; 84484; 85014; 85018; 85025; 86850; 86900; 86901; 86923; 93005; 93010; 93306; 94640; 94660; 94760; 94762; 96374-59; 97110; 97162; 97164; 97166; 97530; 97535; 99285-25; A9270; J0881; J1650; J1940; J2405; J2916

== ENCOUNTER 2019-11-05 11:51 | Inpatient (IN) | payer OTHER ==
[~2019-11-05] VITALS: Ht 154.9 cm; Wt 209.3 kg
[~2019-11-05 11:51] MED LIST changes: +BUDE6HFA INH; +DOCU100 PO; +HYDR10 PO; +ISOMON20 PO; +LACT5TL TOP; +LOSA50 PO; +Magnesium500 M1 PO; +Pedi-Dri 100,0060 GM TOP; +SENN187 PO; +SPIRIVA RESPIMAT4 G1 INH; +THERA-D2000 UNIT PO
[2019-11-05 12:32] LABS: BASOPHILS ABSOLUTE AUTO 0.02 K/mm3 (0.00-0.23); BASOPHILS PERCENT AUTO 0 % (0-2); EOSINOPHILS ABSOLUTE AUTO 0.13 K/mm3 (0.00-0.68); EOSINOPHILS PERCENT AUTO 2 % (0-6); Hematocrit 25.6 % (33.0-51.0); Hemoglobin 7.6 g/dL (11.5-16.0); IMMATURE GRAN ABSOLUTE AUTO 0.03 K/mm3 (0.00-0.10); IMMATURE GRAN PERCENT AUTO 1 % (0-1); LYMPHOCYTES ABSOLUTE AUTO 0.47 K/mm3 (0.84-5.20); LYMPHOCYTES PERCENT AUTO 9 % (21-46); MONOCYTES ABSOLUTE AUTO 0.43 K/mm3 (0.16-1.47); MONOCYTES PERCENT AUTO 8 % (4-13); Mean Corpuscular HGB 30.3 pg (26.0-34.0); Mean Corpuscular HGB Conc 29.7 g/dL (31.5-36.5); Mean Corpuscular Volume 102 fL (80-100); Mean Platelet Volume 11.8 fL (9.1-12.4); NEUTROPHILS ABSOLUTE AUTO 4.31 K/mm3 (1.96-9.15); NEUTROPHILS PERCENT AUTO 80 % (41-73); Platelet Count 141 K/mm3 (150-400); RDW Coefficient Variation 14.6 % (11.7-14.2); RDW Standard Deviation 53.3 fL (35.1-46.3); Red Blood Cell Count 2.51 M/mm3 (3.80-5.20); White Blood Cell Count 5.39 K/mm3 (4.00-11.30)
[2019-11-05 12:35] LABS: Albumin/Globulin Ratio 0.7 (0.8-1.8); Bilirubin, Total 0.5 mg/dL (0.1-1.0); Bun/Creatinine Ratio 14.3 (12.0-20.0); Calcium, Blood 8.3 mg/dL (8.5-10.1); Creatinine, Blood 4.55 mg/dL (0.40-1.00); Globulin, Blood 4.2 g/dL (2.2-4.0); Potassium, Blood 5.9 mmol/L (3.5-5.5); Total Protein, Blood 7.2 g/dL (6.4-8.2)
[2019-11-05 14:12] LABS: Magnesium, Blood 2.7 mg/dL (1.6-2.4)
[2019-11-05 17:25] LABS: Source, Urine Catheter
--- NOTE | 2019-11-05 17:27 | NUR ---
Diuretics Verbal orders received from Dr. Graf, see EMAR.
[2019-11-05 17:35] LABS: Blood, Urine 2+ (Neg); Glucose Qualitative, Urine Neg (Neg); Ketones, Urine 2+ (Neg); Leukocyte Esterase, Urine 1+ (Neg); Nitrite, Urine Neg (Neg); Protein, Urine 3+ (Neg); Specific Gravity, Urine 1.025 (1.003-1.022); Urobilinogen, Urine NORM (Normal)
--- NOTE | 2019-11-05 17:59 | NUR ---
Shift Summary Pt arrived to unit from ED at 1535, alert and oriented, able to call appropriately. Nath placed in the ED. Pt oriented to call light and room. Pt states she feels the urge to urinate, nath intact and draining well. Oxygen @ 3L NC and is baseline at home. Pt is a lift max assist as staff had to lift from [facility] to bariatric bed. Medicated x 1 for pain per EMAR. Denies nausea, vomiting. Will continue to monitor.
[2019-11-05 18:00] LABS: Appearance, Urine Hazy (Clear); Bilirubin, Urine 2+ (Neg); Color, Urine Yellow (P-Yellow)
[2019-11-05 18:14] LABS: White Blood Cells, Urine 0-2 /hpf (0-5)
[2019-11-05 18:15] LABS: Amorphous Light (0-Heavy); Bacteria Many /hpf; Red Blood Cells, Urine 0-2 /hpf (0-2); Squamous Epithelial Cells Mod /hpf (Few); Yeast/Fungi Urine Few /hpf
--- NOTE | 2019-11-05 18:45 | NUR ---
Update on Output This RN updated Dr. Graf on output post diuretics. New orders received.
--- NOTE | 2019-11-05 19:28 | NUR ---
Verbal order Per Samantha Lieberman ordered for continuous infusion @ 1mg/hr.
--- NOTE | 2019-11-05 20:19 | NUR ---
PER DR. MELENDREZ, INCREASE BUMETADINE TO 2MG/HR CONTINUOUS INFUSION AT 2200.
[2019-11-06 05:15] LABS: BASOPHILS ABSOLUTE AUTO 0.02 K/mm3 (0.00-0.23); BASOPHILS PERCENT AUTO 0 % (0-2); EOSINOPHILS ABSOLUTE AUTO 0.13 K/mm3 (0.00-0.68); EOSINOPHILS PERCENT AUTO 3 % (0-6); Hemoglobin 7.3 g/dL (11.5-16.0); IMMATURE GRAN ABSOLUTE AUTO 0.03 K/mm3 (0.00-0.10); IMMATURE GRAN PERCENT AUTO 1 % (0-1); LYMPHOCYTES ABSOLUTE AUTO 0.58 K/mm3 (0.84-5.20); LYMPHOCYTES PERCENT AUTO 12 % (21-46); MONOCYTES ABSOLUTE AUTO 0.42 K/mm3 (0.16-1.47); MONOCYTES PERCENT AUTO 9 % (4-13); Mean Corpuscular HGB 29.6 pg (26.0-34.0); Mean Corpuscular HGB Conc 29.2 g/dL (31.5-36.5); Mean Corpuscular Volume 101 fL (80-100); Mean Platelet Volume 11.9 fL (9.1-12.4); NEUTROPHILS ABSOLUTE AUTO 3.66 K/mm3 (1.96-9.15); NEUTROPHILS PERCENT AUTO 76 % (41-73); Platelet Count 132 K/mm3 (150-400); RDW Coefficient Variation 14.6 % (11.7-14.2); RDW Standard Deviation 52.6 fL (35.1-46.3); Red Blood Cell Count 2.47 M/mm3 (3.80-5.20); White Blood Cell Count 4.84 K/mm3 (4.00-11.30)
[2019-11-06 05:46] LABS: Magnesium, Blood 2.7 mg/dL (1.6-2.4)
[2019-11-06 05:50] LABS: Alanine Aminotransfer (ALT/SGP 15 U/L (12-78); Albumin, Blood 2.9 g/dL (3.4-5.0); Albumin/Globulin Ratio 0.8 (0.8-1.8); Alk Phos 65 U/L (50-136); Anion Gap 8 mmol/L (6-16); Aspartate Aminotrans (AST/SGOT 16 U/L (12-37); Bilirubin, Total 0.4 mg/dL (0.1-1.0); Blood Urea Nitrogen 66 mg/dL (8-24); Bun/Creatinine Ratio 14.2 (12.0-20.0); CO2, Blood 24 mmol/L (21-32); Calcium, Blood 8.1 mg/dL (8.5-10.1); Chloride, Blood 102 mmol/L (98-108); Creatinine, Blood 4.64 mg/dL (0.40-1.00); Globulin, Blood 3.7 g/dL (2.2-4.0); Glomerular Filtration Rate 10 (60-); Glucose, Blood 90 mg/dL (70-99); Potassium, Blood 5.9 mmol/L (3.5-5.5); Sodium, Blood 134 mmol/L (136-145); Total Protein, Blood 6.6 g/dL (6.4-8.2)
--- NOTE | 2019-11-06 07:17 | NUR ---
SHIFT SUMMARY: A/OX4. COMMUNICATES NEEDS. C/O GENERALIZED SORENESS "FROM MOVING AROUND SO MUCH". SOME IMPROVEMENT IN PAIN WITH TYLENOL. CONTINUES WITH GENERALIZED PITTING EDEMA. ABD PADS PLACED AGAINST WHEEPING ABRASION ON R LATERAL THIGH. SLEPT INTERMITTENTLY THROUGH THE NIGHT. CALL BUTTON IN REACH.
--- NOTE | 2019-11-06 07:18 | NUR ---
24 HOUR URINE COLLECTION STARTED ON 11/05 AT 2120.
--- NOTE | 2019-11-06 08:00 | NUR ---
Per Dr. Graf, verbal orders received to administer LoKelma, Bumex, and Metolazone with repeat of Bumex after 30 minutes of first Bumex dose.
--- NOTE | 2019-11-06 14:05 | NUR ---
I/O Update Notified Dr. Graf on output of 250cc. Orders received to repeat 5mg of Bumex IV and 10 mg PO Metolazone with a second of dose of Bumex 30 minutes after the initial dose.
--- NOTE | 2019-11-06 15:06 | NUR ---
Moisture in abdominal and leg folds. This RN requested Nystatin Powder, Dr. Daly approved.
--- NOTE | 2019-11-06 16:42 | NUR ---
Shift Summary A/Ox4. Pleasant and cooperative, able to make needs known. Patient had a bowel movement today. Urinary output was a total of 525cc thus far. Pt continues to have extreme edema and weeping mostly on R quad lateral thigh around the abrasion, ABD dressing in place and changed x 1. Medicated for "all over aches" of 8 x 1 per EMAR with good improvement. Bumex IV 2mg/hr is still infusing. Denies SOB. No dyspnea, continues baseline O2 @ 3 LPM. Will continue to monitor.
--- NOTE | 2019-11-06 18:11 | NUR ---
assumed care assumed care of patient at dinnertime. patient denies pain, nausea, and shortness of breath. call light in reach.
[2019-11-06 22:08] LABS: Protein, Urine Quantitative 40.4 mg/dL (0.0-11.9)
--- NOTE | 2019-11-07 01:28 | NUR ---
Patient complaining of swelling of glandular areas under each side of jaw, sore throat, forehead and swelling of face which are all painful to gentle palpation. unable to visualize swelling as patient is generally swollen on a bumex gtt for diureses and very large women. she states pain increases when she moves her head. IV is on right shoulder, and no infultration noted or crepitus noted. MD aware. will call again to see if we could give her some benedryl incase she is having a reaction to something. will keep close monitoring
[2019-11-07 05:03] LABS: Hematocrit 24.8 % (33.0-51.0); Hemoglobin 7.5 g/dL (11.5-16.0)
[2019-11-07 05:22] LABS: Albumin, Blood 2.9 g/dL (3.4-5.0); Anion Gap 8 mmol/L (6-16); Blood Urea Nitrogen 65 mg/dL (8-24); Bun/Creatinine Ratio 13.6 (12.0-20.0); CO2, Blood 24 mmol/L (21-32); Chloride, Blood 103 mmol/L (98-108); Creatinine, Blood 4.78 mg/dL (0.40-1.00); Glomerular Filtration Rate 10 (60-); Glucose, Blood 92 mg/dL (70-99); Magnesium, Blood 2.6 mg/dL (1.6-2.4); Potassium, Blood 5.2 mmol/L (3.5-5.5); Sodium, Blood 135 mmol/L (136-145)
[2019-11-07] MEDS ORDERED: FURO40 PO (13:34)
--- NOTE | 2019-11-07 16:13 | NUR ---
SHIFT SUMMARY NO ACUTE CHANGES. PATIENT MEDICATED X1 FOR PAIN. DENIES NAUSEA AND SHORTNESS OF BREATH. REPORTS SHE IS STILL FEELING WEAK BUT WAS ABLE TO ASSIST IN ROLLING IN BED AND REPOSITIONING. ALL SKIN FOLDS AND CREASES CLEANED AND NYSTATIN APPLIED. BUMEX DRIP STOPPED, Q6 IV BUMEX STARTED. CALL LIGHT IN REACH.
--- NOTE | 2019-11-07 16:30 | NUR ---
Inital spiritual care note: Per admit trigger, I met with Agata to offer encouragement/prayer. She declined custodial maintenance worker visit. I will remain available.
--- NOTE | 2019-11-08 05:07 | NUR ---
PHARMACY OPERATIONS MANAGER SUMMARY PT SLEPT WELL THROUGHOUT NIGHT. PLEASANT AND COOPERATIVE. A/O X4. DRESSING ON R HIP CHANGED. SKIN TEAR TO L HIP MINIMAL OOZING WITH A FEW BLISTERS AROUND. NYSTATIN POWDER APPLIED TO FOLDS. ROMERO PATENT AND DRAINING CLEAR LIGHT YELLOW URINE. NO ACUTE CHANGES, WILL CONTINUE TO MONITOR.
[2019-11-08 05:39] LABS: Hematocrit 24.6 % (33.0-51.0); Hemoglobin 7.2 g/dL (11.5-16.0)
[2019-11-08 06:03] LABS: Albumin, Blood 2.8 g/dL (3.4-5.0); Anion Gap 9 mmol/L (6-16); Blood Urea Nitrogen 70 mg/dL (8-24); Bun/Creatinine Ratio 14.2 (12.0-20.0); CO2, Blood 23 mmol/L (21-32); Chloride, Blood 104 mmol/L (98-108); Creatinine, Blood 4.94 mg/dL (0.40-1.00); Glomerular Filtration Rate 9 (60-); Glucose, Blood 86 mg/dL (70-99); Magnesium, Blood 2.5 mg/dL (1.6-2.4); Phosphorus, Blood 5.1 mg/dL (2.5-4.9); Potassium, Blood 4.7 mmol/L (3.5-5.5); Sodium, Blood 136 mmol/L (136-145)
--- NOTE | 2019-11-08 12:14 | NUR ---
NOTIFIED PATIENT WITH NO B.M. FOR 2 DAYS. STS WILL ORDER SOMETHING. AWAITING ORDERS.
[2019-11-08 13:07] LABS: ALBUMIN 2.9 g/dL (2.9-4.4); ALPHA-1-GLOBULIN 0.3 g/dL (0.0-0.4); ALPHA-2-GLOBULIN 0.8 g/dL (0.4-1.0); BETA GLOBULIN 0.7 g/dL (0.7-1.3); GAMMA GLOBULIN 1.4 g/dL (0.4-1.8); GLOBULIN, TOTAL 3.2 g/dL (2.2-3.9); IMMUNOGLOBULIN A, QN, SERUM 315 mg/dL (87-352); IMMUNOGLOBULIN G, QN, SERUM 1336 mg/dL (700-1600); IMMUNOGLOBULIN M, QN, SERUM 97 mg/dL (26-217); M-SPIKE Not Observed g/dL (Not Observed); PROTEIN, TOTAL, SERUM 6.1 g/dL (6.0-8.5)
--- NOTE | 2019-11-08 15:00 | NUR ---
Pt visit this afternoon. Assited bedside RN and SUPERVISOR CUSTOMER COMPLAINT SERVICE with rolling Pt to use bed jacob. After use of bed jacob engaged in therapeutic discussion regarding goals of care. Pt reports living at home with her disabled mom and sister. 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 Pt reports her goal is to return to baseline which is being able to self ambulate. She was receiving PT through home health before this hospital stay. Pt reports she would like to be placed into a residential facility where she can receive the care she needs until she can care for her self. Discussed completing a POLST and educated on life sustaining measures including risk factors. Pt reports interest and would like to continue conversation on next Palliative Care visit. Pt reports no other concerns at this time. Spoke with bedside GUERA Cota and discussed case. Palliative Care will remain available.
--- NOTE | 2019-11-08 16:29 | NUR ---
ALERT. ORIENTED. MEDICATED X 1 FOR PAIN AFTER BEDBATH. UNLABORED RESPIRATIONS. ROMERO IN PLACE AND DRAINING CLEAR YELLOW URINE. ALL FOLDS CLEANED AND NYSTATIN POWDRER APPLIED. C/O PAIN AT CHEST WALL IV SITE. UNABLE TO TELL IF INFILTRATED, IV SITE CHANGED. GOOD APPETITE. PT/OT UNABLE TO DO THERAPY. SEE THEIR NOTES. NO ACUTE CHANGES. WCTM.
--- NOTE | 2019-11-08 18:38 | NUR ---
IV FLUIDS TURNED DOWN TO 50ML/HR. NO NEW BAG NEEDED
[2019-11-09 05:15] LABS: Hematocrit 24.2 % (33.0-51.0); Hemoglobin 7.3 g/dL (11.5-16.0)
--- NOTE | 2019-11-09 05:20 | NUR ---
SLEPT WELL TONIGHT. A/O X4, PLEASANT AND COOPERATIVE. VSS, NO ACUTE CHANGES. DISPOSABLE CHUCKS WET FROM SKIN TEAR UNDER DRESSING TO R HIP. NEW EXU DRY DRESSING APPLIED TO SKIN TEAR TO R HIP. ANOTHER SKIN TEAR FOUND IN FOLDS TO R GROIN AREA. NYSTAIN POWDER AND ABD PAD APPLIED TO SKIN TEAR IN R GROIN FOLD. WILL CONTINUE TO MONTITOR.
[2019-11-09 05:40] LABS: Albumin, Blood 2.6 g/dL (3.4-5.0); Anion Gap 9 mmol/L (6-16); Blood Urea Nitrogen 72 mg/dL (8-24); Bun/Creatinine Ratio 15.2 (12.0-20.0); CO2, Blood 23 mmol/L (21-32); Calcium, Blood 7.7 mg/dL (8.5-10.1); Chloride, Blood 104 mmol/L (98-108); Creatinine, Blood 4.74 mg/dL (0.40-1.00); Glomerular Filtration Rate 10 (60-); Glucose, Blood 108 mg/dL (70-99); Magnesium, Blood 2.3 mg/dL (1.6-2.4); Phosphorus, Blood 4.8 mg/dL (2.5-4.9); Sodium, Blood 136 mmol/L (136-145)
--- NOTE | 2019-11-09 06:03 | NUR ---
PT REFUSED REPOSITIONING Q2 HOURS THROUGHOUT THE NIGHT. PT TAUGHT REPOSITIONING HELPS WITH THE SKIN. PT STATED SHE "WANTED TO GET SOME REST".
[2019-11-09 10:26] LABS: Percent Saturation 12.1 % (15.0-50.0)
--- NOTE | 2019-11-09 16:41 | NUR ---
PATIENT ALERT. ORIENTED. HAS REFUSED TO LET US TURN HER. IS ON BARIACTRIC BED. ALL FOLDS ARE CLEANED AND DRIED THEN NYSTATIN POWDER PLACED. SOME OOZING FROM EDEMA LEFT HIP. ABRASION RT HIP SOME OOZING W/BLISTERS. DSG CHANGED. HAS SKIN TEAR ABD FOLD LEFT SIDE. 4X4 PLACED TO TRY AND KEEP DRY. SKIN FOLDS ARE 6-8 INCHES DEEP. GOOD SATS ON 3LPM HUMIDIFIED OXYGEN. TOLERATED BLOOD TRANSFUSION. GOOD OUTPUT THRU ROMERO. WILL CONTINUE TO MONITOR.
[2019-11-10 05:05] LABS: Hematocrit 24.8 % (33.0-51.0); Hemoglobin 7.6 g/dL (11.5-16.0)
[2019-11-10 05:19] LABS: Albumin, Blood 2.6 g/dL (3.4-5.0); Anion Gap 9 mmol/L (6-16); Blood Urea Nitrogen 77 mg/dL (8-24); Bun/Creatinine Ratio 17.2 (12.0-20.0); CO2, Blood 25 mmol/L (21-32); Calcium, Blood 7.9 mg/dL (8.5-10.1); Chloride, Blood 105 mmol/L (98-108); Creatinine, Blood 4.47 mg/dL (0.40-1.00); Glomerular Filtration Rate 11 (60-); Glucose, Blood 102 mg/dL (70-99); Magnesium, Blood 2.3 mg/dL (1.6-2.4); Phosphorus, Blood 4.7 mg/dL (2.5-4.9); Potassium, Blood 3.7 mmol/L (3.5-5.5); Sodium, Blood 139 mmol/L (136-145)
--- NOTE | 2019-11-10 06:19 | NUR ---
SHIFT SUMMARY NO ACUTE CHANGES THIS SHIFT. AOX4. VSS. DENIES DYSPNEA. E/U RESPIRATIONS. SPO2 >90% ON 3L O2 (BASELINE), LUNGS SOUND DIM T/O. HAS PITTING EDEMA SCATTERED T/O BODY. LARGE SKIN TEAR W/MODERATE AMOUNT SEROUS DRAINAGE TO R. THIGH, ABD PAD CHANGED & C/D/I. SKIN TEAR UNDER R SIDE OF PANNUS & R GROIN SKIN FOLD, NO DRAINAGE NOTED. ROMERO PATENT & DRAINAING. REFUSED REPOSITIONING. CALL LIGHT IN REACH. WCTM.
[2019-11-10 11:07] LABS: M-SPIKE, % Not Observed % (Not Observed); PROTEIN,TOTAL,URINE 34.9 mg/dL (Not Estab.)
--- NOTE | 2019-11-10 17:27 | NUR ---
SUMMARY PT RESTING QUIETLY IN BED, WAKES EASILY, HAS BEEN PLEASANT AND COOPERATIVE WITH CARE, PT RECEIVED 1 UNIT OF PRBC'S, DEIDRE WELL, FAMILY HAS BEEN IN TO VISIT, VSS, NO ACUTE CHANGES, WILL CONT TO MONITOR
--- NOTE | 2019-11-11 05:02 | NUR ---
SHIFT SUMMARY NO ACUTE CHANGES THIS SHIFT. AOX4. SLEPT WELL. VSS. SPO2 >90% ON 3L VIA NC, E/U RESPIRATIONS, LUNGS DIM T/O. REPORTED PAIN IN BILAT KNEES & WAS MEDICATED W/TYLENOL PER ORDERS & STATED RELIEF. ROMERO IS PATENT & DRAINING. REFUSES REPOSITIONING. CLEANSED ALL SKIN FOLDS & APPLIED NYSTATIN. CHANGED DRESSING ON R HIP SKIN TEAR, MODERATE AMOUNT SEROUS DRAINAGE. CALL LIGHT IN REACH. WCTM.
[2019-11-11 05:22] LABS: Hematocrit 26.6 % (33.0-51.0); Hemoglobin 8.1 g/dL (11.5-16.0)
[2019-11-11 05:49] LABS: Albumin, Blood 2.5 g/dL (3.4-5.0); Anion Gap 10 mmol/L (6-16); Blood Urea Nitrogen 78 mg/dL (8-24); Bun/Creatinine Ratio 18.4 (12.0-20.0); CO2, Blood 25 mmol/L (21-32); Calcium, Blood 7.7 mg/dL (8.5-10.1); Chloride, Blood 103 mmol/L (98-108); Creatinine, Blood 4.24 mg/dL (0.40-1.00); Glomerular Filtration Rate 11 (60-); Glucose, Blood 96 mg/dL (70-99); Magnesium, Blood 2.3 mg/dL (1.6-2.4); Phosphorus, Blood 4.8 mg/dL (2.5-4.9); Potassium, Blood 3.3 mmol/L (3.5-5.5); Sodium, Blood 138 mmol/L (136-145)
[2019-11-11 07:07] LABS: ANTIGLOMERULAR BM AB 3 units (0-20)
[2019-11-11 11:07] LABS: ANA DIRECT Positive (Negative); ANTI-CENTROMERE B ANTIBODIES <0.2 AI (0.0-0.9); ANTI-DNA (DS) AB QN 17 IU/mL (0-9); ANTI-JO-1 <0.2 AI (0.0-0.9); ANTICHROMATIN ANTIBODIES <0.2 AI (0.0-0.9); ANTIMYELOPEROXIDASE (MPO) ABS 16.6 U/mL (0.0-9.0); ANTIPROTEINASE 3 (PR-3) ABS <3.5 U/mL (0.0-3.5); ANTIRIBOSOMAL P ANTIBODIES 0.3 AI (0.0-0.9); ANTISCLERODERMA-70 ANTIBODIES <0.2 AI (0.0-0.9); ATYPICAL PANCA <1:20 titer (Neg:<1:20); CYTOPLASMIC (C-ANCA) <1:20 titer (Neg:<1:20); PERINUCLEAR (P-ANCA) <1:20 titer (Neg:<1:20); RNP ANTIBODIES <0.2 AI (0.0-0.9); SJOGREN'S ANTI-SS-A <0.2 AI (0.0-0.9); SJOGREN'S ANTI-SS-B <0.2 AI (0.0-0.9); SMITH ANTIBODIES 0.3 AI (0.0-0.9); SMITH/RNP ANTIBODIES 0.2 AI (0.0-0.9)
--- NOTE | 2019-11-11 15:51 | NUR ---
Palliative care visit: Introduced myself to Agata in follow up to previous palliative care RN visit earlier in the week. Pt is receptive to a visit and interested in discussing her code status further. She states she has been thinking a lot about her conversation and the information shared from previous Pal Care RN, Mono. Some of her questions answered re: advanced life saving interventions. She would like to complete an advanced directive with assistance after reviewing and discussing with her sister. I gave her a blank AD form and blank POLST form with instruction and review of both. Also gave her booklet, "Hard choices for loving people" to review, generate questions for providers and give her more information in order to make informed decisions re: her code status choices. Explained to pt and she is now aware that she is a full code and what that means. She states each time she comes to the ER she is asked but is in so much distress she can barely tell them her name, let alone what she might like for a code status. We discussed the benefit of having these conversations and documenting her wishes as well as who her surrogate decision maker would be when she is NOT in distress. Pt is very appreciative of the conversation and time spent listening. Case conferenced with pt's RN after my visit. Planned with pt for [facility] Palliative Care RN to follow up Thursday or Thursday and assist with completion of AD/POLST if pt is ready. Pt denies pain or needs otherwise at this time.
--- NOTE | 2019-11-11 17:47 | NUR ---
SUMMARY PT SITTING UP IN BED EATING DINNER, PT HAS BEEN PLEASANT AND COOPERATIVE WITH CARE, HAD SOME FAMILY COME IN TO VISIT, DRESSING TO THE R LEG/THIGH CHANGED TWICE THIS SHIFT DUE TO OOZING OF SEROUS FLUID, PT REMAINS EDEMATOUS, ROMERO PATENT AND DRAINING, VSS, NO ACUTE CHANGES, WILL CONT TO MONITOR
[2019-11-12 05:37] LABS: Hematocrit 26.3 % (33.0-51.0)
[2019-11-12 05:54] LABS: Albumin, Blood 2.4 g/dL (3.4-5.0); Anion Gap 8 mmol/L (6-16); Blood Urea Nitrogen 77 mg/dL (8-24); Bun/Creatinine Ratio 20.1 (12.0-20.0); CO2, Blood 26 mmol/L (21-32); Calcium, Blood 8.1 mg/dL (8.5-10.1); Chloride, Blood 105 mmol/L (98-108); Creatinine, Blood 3.84 mg/dL (0.40-1.00); Glomerular Filtration Rate 13 (60-); Glucose, Blood 96 mg/dL (70-99); Magnesium, Blood 2.2 mg/dL (1.6-2.4); Phosphorus, Blood 4.5 mg/dL (2.5-4.9); Potassium, Blood 3.2 mmol/L (3.5-5.5); Sodium, Blood 139 mmol/L (136-145)
--- NOTE | 2019-11-12 07:45 | NUR ---
SHIFT SUMMARY: PATIENT IS A&OX4, VS ARE STABLE, WAS GIVEN TYLENOL FOR GENERAL DISCOMFORT WITH GOOD EFFECT. PATIENT HAS MANY SUPERFICIAL OPEN GAURAV IN SKIN FOLDS, WITH WHEEPING NOTED. GENERALIZED EDEMA OBSERVED, OVER 1400 OF URINE OUT OF ROMERO. PATIENT IS COMPLIANT WITH FLUID RESTRICTION. IV POTASSIUM WAS BURNING PATIENT, THIS WAS RELIEVED BY RUNNING CONCURRENT WITH NS AT 75 ML. PATIENT REPORTS NO BURNING AT IV SITE.
--- NOTE | 2019-11-12 17:09 | NUR ---
SHIFT SUMMARY ASSUMED CARE OF PATIENT AT 1600. PATIENT IS PLEASANT, DENIES NEED OF HELP FOR NOW. SHE STATES CARE IS GOING WELL. SHE IS LIMITING HER OWN FLUIDS. VERY PLEASANT AT THIS TIME.
--- NOTE | 2019-11-13 04:39 | NUR ---
CRM ARCHITECT SUMMARY PT A/O X4. SLEPT WELL THIS SHIFT. DRESSING ON R HIP CHANGED. EXU-DRY DRESSING APPLIED TO SKIN TEAR TO R HIP. THREE STAFF ASSISTED TO ROLL PT ON SIDE TO HELP WITH DRESSING CHANGE. PT STATED SHE FELT LIKE HAVING A BOWEL MOVEMENT TWICE EARILER IN SHIFT. BED BROTHERS OFFERED TWICE. PT HAD A VERY LITTLE BOWEL MOVEMENT ONCE. SCAB UNDER R LEG STARTED BLEEDING WHILE BEING ROLLED OVER. PRESSURE APPLIED TO AREA AND ARE CLEANSED. BLEEDING STOPPED AFTER DRESSING WAS APPLIED. PT REQUESTED TO BE BOOSTED IN BED. LIFT WAS USED TO HELP PT BOOST UP IN BED. PT REFUSED REPOSITIONING THROUGHOUT THE NIGHT. NYSTATIN POWDER APPLIED TO FOLDS. WILL CONINTUE TO MONITOR.
[2019-11-13 05:24] LABS: Hematocrit 27.1 % (33.0-51.0); Hemoglobin 7.9 g/dL (11.5-16.0)
[2019-11-13 05:34] LABS: Albumin, Blood 2.4 g/dL (3.4-5.0); Anion Gap 9 mmol/L (6-16); Blood Urea Nitrogen 77 mg/dL (8-24); Bun/Creatinine Ratio 23.1 (12.0-20.0); CO2, Blood 27 mmol/L (21-32); Chloride, Blood 104 mmol/L (98-108); Creatinine, Blood 3.33 mg/dL (0.40-1.00); Glomerular Filtration Rate 15 (60-); Glucose, Blood 94 mg/dL (70-99); Magnesium, Blood 2.1 mg/dL (1.6-2.4); Phosphorus, Blood 4.3 mg/dL (2.5-4.9); Potassium, Blood 3.1 mmol/L (3.5-5.5); Sodium, Blood 140 mmol/L (136-145)
--- NOTE | 2019-11-13 17:52 | NUR ---
SHIFT SUMMARY PATIENT IS ALERT AND ORIENTED. NO ACUTE CONCERNS AT THIS TIME. SHE STATES THAT SHE FEELS SHE IS DOING WELL. PLEASANT AT THIS TIME. SHE REPORTS THAT SHE DOES NOT FEEL LIKE SHE HAS HAD A BOWEL MOVEMENT.
--- NOTE | 2019-11-13 22:57 | NUR ---
PT CALLED FOR BEDPAN AND WAS OFFERED. ONLY SMALL AMOUNT OF STOOL NOTED. PT HAS BEEN ROLLED TO BOTH SIDES TO RE-ADJUST AND CHANGE DISPOSABLE CHUCKS AND BED SHEET. 3 STAFF MEMBERS NEEDED TO ASSIST PT IN ROLLING. PT'S GOWN HAS ALSO BEEN CHANGED. DRESSING ON RIGHT HIP CHANGED WITH EXU-DRY DRESSING. MEPELIX AND PRESSURE APPLIED TO SCAB UNDER RIGHT UPPER LEG THAT BEGAN TO BLEED WHEN ROLLING. PT BOOSTED UP TO BED WITH LIFT. PT STATED SHE IS READY FOR BED AND REFUSED REPOSIONING THROUGHOUT THE NIGHT.
--- NOTE | 2019-11-14 03:47 | NUR ---
AD COMPOSITOR SUMMARY PT SLEPT WELL THROUGHOUT THE NIGHT. A/O X4. SEE PREVIOUS NOTE FOR ACTIVITIES EARILER IN THE SHIFT. ON 3L O2 NASAL CANNULA. NO ACUTE CHANGES. BED IN LOWEST POSITION. CALL LIGHT WITHIN REACH. CALLS APPROPRIATELY. WILL CONTINUE TO MONITOR.
[2019-11-14 05:07] LABS: Hematocrit 25.8 % (33.0-51.0); Hemoglobin 7.8 g/dL (11.5-16.0)
[2019-11-14 05:37] LABS: Magnesium, Blood 2.3 mg/dL (1.6-2.4)
[2019-11-14 05:38] LABS: Albumin, Blood 2.4 g/dL (3.4-5.0); Anion Gap 8 mmol/L (6-16); Blood Urea Nitrogen 79 mg/dL (8-24); Bun/Creatinine Ratio 26.9 (12.0-20.0); CO2, Blood 29 mmol/L (21-32); Calcium, Blood 8.4 mg/dL (8.5-10.1); Chloride, Blood 104 mmol/L (98-108); Creatinine, Blood 2.94 mg/dL (0.40-1.00); Glomerular Filtration Rate 17 (60-); Glucose, Blood 105 mg/dL (70-99); Phosphorus, Blood 4.1 mg/dL (2.5-4.9); Potassium, Blood 3.2 mmol/L (3.5-5.5); Sodium, Blood 141 mmol/L (136-145)
--- NOTE | 2019-11-14 14:39 | NUR ---
Pal Care visit. Pt awake. She reports being constipated and that RN has given her additional laxative. She tried to have a bm on bedpan this am with only sm amt resulting. She is receptive and wanting to complete a POLST in prep for eventual transfer to another inpt facility. She has not seen PT/OT yet but understands Dr is recommending SNF pending OT/PT input. She is agreeable with this plan. We started to discuss what her wishes were re: code status. Pt indicated that she thought she still wanted CPR but did not want to be intubated. Our conversation was interupted multiple times due to her lunch arriving and several other staff coming into the room. We agreed to finish the conversation and complete the POLST in the am and after she'd had time to discuss further with her sister Astrid, who she identified as her surrogate decision maker. She had not done this over the weekend. Plan to return in the am or earlier if pt requests and is ready to discuss further.
--- NOTE | 2019-11-14 17:05 | NUR ---
SHIFT SUMMARY- PT A/O, PLESANT AND COOPERATIVE. PT REPORTS FEELING CONSTIPATED, BOWEL CARE GIVEN THIS AFTERNOON WITH MEDIUM SIZED BOWEL MOVMENT A RESULT. PT HAS MULTIPLE SKINFOLDS AND NYSTATIN WAS APPLIED TO THOSE AREAS. PT HAS ROMERO IN PLACE WHICH IS PATIENT AND DRAINING. PT IS EATING AND DRINKING WELL. ON A FLUID RESTRICTIONS. WORKING WITH CARE MANAGMENT FOR PLACMENT. PT WAS VISITED BY PATIENT ADVOCATE THIS AFTERNOON, BUT WAS ASLEEP WHEN SHE STOPPED BY PT WAS INFORMED.
--- NOTE | 2019-11-14 19:50 | NUR ---
HARVEY WAS WATCHING TV, STATES HER ABDOMIN IS SLIGHTLY PAINFUL, SHE THINKS IT IS FROM ALL THE BOWEL CARE. SHE HAD A MEDIUM BM TODAY, AND THINKS SHE MIGHT HAVE ANOTHER ONE. SHE IS ALSO GOOD AT WATCHING HER FLUID RESTRICTION. CATHETER PATENT AND DRAINING WELL. DENIES ANY NEEDS JUST WANTS TO SLEEP. CALL LIGHT IN REACH.
[2019-11-15 05:12] LABS: Hematocrit 25.7 % (33.0-51.0); Hemoglobin 7.6 g/dL (11.5-16.0)
[2019-11-15 05:31] LABS: Albumin, Blood 2.3 g/dL (3.4-5.0); Anion Gap 6 mmol/L (6-16); Blood Urea Nitrogen 79 mg/dL (8-24); CO2, Blood 30 mmol/L (21-32); Calcium, Blood 8.3 mg/dL (8.5-10.1); Chloride, Blood 104 mmol/L (98-108); Creatinine, Blood 2.55 mg/dL (0.40-1.00); Glomerular Filtration Rate 20 (60-); Glucose, Blood 99 mg/dL (70-99); Magnesium, Blood 2.2 mg/dL (1.6-2.4); Potassium, Blood 3.4 mmol/L (3.5-5.5); Sodium, Blood 140 mmol/L (136-145)
--- NOTE | 2019-11-15 05:46 | NUR ---
SHIFT SUMMARY: HARVEY HAS HAS AN UNEVENTFUL NIGHT. SHE HAS REMAINED STABLE, AND ABLE TO SLEEP THROUGHOUT THE SHIFT. SHE DID HAVE SOME ABDOMINAL PAIN AT START OF SHIFT WHICH SHE THOUGHT WAS RELATED TO SOME BOWEL CARE SHE GOT ON DAY SHIFT. SHE DID HAVE A BOWEL MOVEMENT WHICH HELPED TO RELEIVE SOME OF THAT PAIN. SKIN CARE WAS PROVIDED TO THE CREASES OF FOLDS, WITH NYSTATIN WELL. SHE DID HAVE DRAINAGE FROM THE LEFT LEG AND OCCATIONAL BLEEDING. DRESSING WAS CHANGED TO THE RIGHT KNEE AREA WELL. NO OTHER ACUTE CHANGES WERE TO NOTE. VS STABLE. CALL LIGHT WITH IN REACH AND USED APPROPRIATLY.
--- NOTE | 2019-11-15 15:19 | NUR ---
PALLIATIVE CARE F/U VISIT: Pt reports that she is no longer constipated and is feeling much better in that regard. She states, "yesterday was a bad day". Pt was visiting with RT when I arrived and is more conversant today and interested in chatting. There is no family or visitors present again today. Room very dark. Shades opened per pt permission and request. Agata has not reviewed materials or AD left. She believes her sister, Astrid, who she identifies as her surrogate medical decision maker, should be in tonight or tomorrow and she wants to speak further with her about whether she would want CPR if needed. She repeats that she does not want to be intubated as she stated yesterday. I asked if she would like me to report this to the Dr and request code status change to DNI and pt states yes. She states she is leaning towards, "If I am gone, just let me go", meaning no CPR desired also but Agata would like to review AD/POLST and literature with her sister before making that decision. Plan made with pt to return after the holiday to follow up on completing the POLST with her. T/c to Dr with report on my visit and vo obtained and entered for DNI status per pt request.
--- NOTE | 2019-11-15 16:58 | NUR ---
SHIFT SUMMARY- PT A/O PLEASANT AND COOPERATIVE. PT WAS SEEN BY PHYSICAL THERAPY AND OCCUPATIONAL THERAPY THIS AFTERNOON. BED BATH PREFORMED THIS AFTERNOON. PT POTASSIUM CONTINUES TO BE LOW GAVE ONE BAG OF POTASSIUM PER ORDERS. PT SLEEPING INTERMITENTLY THROUGHOUT THIS SHIFT. PT REQUIRES MAX ASSIST TO ROTATE. CHANGED BANDAGE ON RIGHT HIP. PT EATING AND DRINKIG WELL. PT STATED THAT HE ABDOMEN FEELS A LOT BETTER THAN PREVIOUS DAY, PT WILL CONTINUE ON BOWEL CARE TO PREVENT FUTURE EPISODES OF CONSTIPATION. PALATIVE CARE NURSE IN TO DISCUSS CODE STATUS WITH PT. WORKING ON PLACMENT.
--- NOTE | 2019-11-15 19:50 | NUR ---
HARVEY REPORTS NO ACUTE CHANGES TODAY. STATES SHE HAD ANOTHER BOWEL MOVEMENT TODAY WHICH MAKES HER FEEL BETTER. NO MORE ABDOMINAL PAIN. APPETITE HAS IMPROVED SOME. NO CHANGES IN SKIN CONDITION. SHE DID RECEIVE A BED BATH TODAY. REMOVED TRAY FROM ROOM, ATE 100% OF HER MEAL. DENIES ANY PAIN OR DISCOMFORT AT THIS TIME. CALL LIGHT IN REACH.
--- NOTE | 2019-11-16 06:02 | NUR ---
SHIFT SUMMARY: HARVEY HAS HAD A GOOD NIGHT, WITH NO ACUTE CHANGES OR CONCERNS. SHE WAS ABLE TO TAKE ALL PRESCRIBED MEDS AND WENT TO BED SHORTLY AFTERWARDS. VS HAVE REMAINED STABLE. REMAINED WITH IN HER FLUIDS RESTRICTION. APPETITE IS GOOD. CALL LIGHT REMAINED WITH IN REACH AND USED APPROPRIATLY.
[2019-11-16 06:53] LABS: Albumin, Blood 2.4 g/dL (3.4-5.0); Anion Gap 8 mmol/L (6-16); Blood Urea Nitrogen 78 mg/dL (8-24); Bun/Creatinine Ratio 34.4 (12.0-20.0); CO2, Blood 31 mmol/L (21-32); Calcium, Blood 8.7 mg/dL (8.5-10.1); Chloride, Blood 103 mmol/L (98-108); Creatinine, Blood 2.27 mg/dL (0.40-1.00); Glomerular Filtration Rate 23 (60-); Glucose, Blood 96 mg/dL (70-99); Magnesium, Blood 2.2 mg/dL (1.6-2.4); Phosphorus, Blood 3.3 mg/dL (2.5-4.9); Potassium, Blood 3.6 mmol/L (3.5-5.5); Sodium, Blood 142 mmol/L (136-145)
--- NOTE | 2019-11-16 16:02 | NUR ---
ALERT. ORIENTED. AWAITING PLACEMENT. RT HIP DRESSING CHANGED TWICE DUE TO WEEPAGE. REFUSED BED BATH TODAY. COOPERATIVE. PLEASANT. REPORT TO EILEEN LYNNE.
--- NOTE | 2019-11-16 18:43 | NUR ---
PT ALERT, ORIENTED, AND COOPERATIVE WITH CARE THROUGH THIS SHIFT. PT SITTING IN BED WATCHING TELEVISION. DRESSING ON UPPER RIGHT LEG C/D/I. PT DENIES FURTHER NEEDS AT THIS TIME.
--- NOTE | 2019-11-16 19:25 | NUR ---
HARVEY WAS SLEEPING WHEN WALKED INTO THE ROOM, SHE WOKE TO THE SOUND OF HER PHONE RINGING. HARVEY DENIED ANY ACUTE CHANGES TODAY. STATES SHE IS FEELING GOOD. FINISHED ASSESSMENT THEN LET HER GET BACK TO HER PHONE CALL.
[2019-11-17 05:17] LABS: Hematocrit 27.6 % (33.0-51.0); Hemoglobin 8.4 g/dL (11.5-16.0)
[2019-11-17 05:35] LABS: Albumin, Blood 2.4 g/dL (3.4-5.0); Anion Gap 7 mmol/L (6-16); Blood Urea Nitrogen 76 mg/dL (8-24); Bun/Creatinine Ratio 37.1 (12.0-20.0); CO2, Blood 32 mmol/L (21-32); Calcium, Blood 8.7 mg/dL (8.5-10.1); Chloride, Blood 102 mmol/L (98-108); Creatinine, Blood 2.05 mg/dL (0.40-1.00); Glomerular Filtration Rate 26 (60-); Glucose, Blood 101 mg/dL (70-99); Magnesium, Blood 2.1 mg/dL (1.6-2.4); Phosphorus, Blood 3.1 mg/dL (2.5-4.9); Potassium, Blood 3.6 mmol/L (3.5-5.5); Sodium, Blood 141 mmol/L (136-145)
--- NOTE | 2019-11-17 16:57 | NUR ---
NO ACUTE CHANGES. DRESSINGS CHANGED TO LEG. HEAVY DISCHARGE . BATH GIVEN . PT ALERT AND ORIENTED AND HAS BEEN ABLE TO EXPRESS ANY COMPLAINTS. SHE REQUESTED TYLENOL FOR LLANES WHICH WAS GIVEN. CALL LIGHT WITHIN REACH.
--- NOTE | 2019-11-17 22:41 | NUR ---
BEGINNING SHIFT SUMMARY ASSUMED CARE OF PT AT 1900. PT WAS LYING IN BED WATCHING TV. PT IS A/O X4 AND PARTICIPATES IN HER CARE. PT STATES THAT SHE LIKES TO STICK TO HER DAILY ROUTINE. HEART SOUNDS DISTANT, PT DENIES C/P OR SOB AT THIS TIME. LUNG SOUNDS DIMINISHED AT THE BASES, PT ON 3 L O2 NASAL CANNULA AT BASELINE. PT HAS REDNESS BETWEEN ALL OF HER FOLDS, NYSTATIN APPLIED, PT LEGS AND ABRASION ON R LEG ARE WEEPING, COMPLETE BED CHANGE PERFORMED AND NEW BANDAGE APPLIED. PT HAS A CATHETER, DRAINING WITH YELLOW CLEAR URINE. PT C/O PAIN IN HER KNEES AFTER REPOSTION, MEDICATED PER EMAR. PT IS CURRENTLY WATCHING TV. CALL LIGHT IN REACH, BED IN LOWEST POSTION, WILL CONTINUE TO MONITOR.
[2019-11-18 05:19] LABS: Hematocrit 27.6 % (33.0-51.0); Hemoglobin 8.2 g/dL (11.5-16.0)
[2019-11-18 05:37] LABS: Albumin, Blood 2.3 g/dL (3.4-5.0); Anion Gap 7 mmol/L (6-16); Blood Urea Nitrogen 78 mg/dL (8-24); Bun/Creatinine Ratio 39.8 (12.0-20.0); CO2, Blood 34 mmol/L (21-32); Calcium, Blood 8.6 mg/dL (8.5-10.1); Chloride, Blood 102 mmol/L (98-108); Creatinine, Blood 1.96 mg/dL (0.40-1.00); Glomerular Filtration Rate 27 (60-); Glucose, Blood 102 mg/dL (70-99); Phosphorus, Blood 2.8 mg/dL (2.5-4.9); Potassium, Blood 3.5 mmol/L (3.5-5.5); Sodium, Blood 143 mmol/L (136-145)
--- NOTE | 2019-11-18 06:01 | NUR ---
END SHIFT SUMMARY NO ACUTE CHANGES NOTED T/O THE NIGHT. PT SLEPT T/O THE NIGHT. PT WAS CHANGED THIS MORNING. DR MELENDREZ IN ROOM WITH PT. PT IS AWAKE AND WATCHING TV. CALL LIGHT IN REACH, BED IN LOWEST POSTION, WILL CONTINUE TO MONITOR UNTIL DAYSHIFT NURSE ARRIVES.
--- NOTE | 2019-11-18 18:17 | NUR ---
SHIFT SUMMARY PATIENT A/O. MAKES NEEDS KNOWN. ROMERO DRAINING YELLOW URINE, NO SEDIMENT. PATIENT ON 3 L. EDIL CARE COMPLETED REQUESTED AND PRN FOR INCONTINENCE. FLUID RESTRICTION OBSERVED BY PATIENT. NO IV ACCESS ORDER IN PLACE AND PLAN TO D/C TO SNF. SKIN IS COMPLEX AND REQUIRES MULTIPLE INTERVENTIONS. WOUND CARE, BARRIER CREAMS, NYSTATIN POWDERS.
--- NOTE | 2019-11-18 21:18 | NUR ---
BEGINNING SHIFT SUMMARY ASSUMED CARE OF PT AT 1900. PT WAS LYING IN BED SLEEPING. DAYSHIFT REPORTED NO SPECIFIC EVENTS DURING THE DAY, PT IS EAGERLY AWAITING DISCHARGE, POSSIBLE DISCHARGE TO [facility] PER SOFTWARE APPLICATIONS DESIGNER. HEART SOUNDS DISTANT, LUNG SOUNDS DIMINISHED T/O. 3+ PITTING EDEMA BLE'S, PT DENIES SOB, DYSPNEA, CP, OR N/T AT THIS TIME. PT IS CURRENTLY SLEEPING. CALL LIGHT IN REACH, BED IN LOWEST POSTION, WILL CONTINUE TO MONITOR.
[2019-11-19 05:20] LABS: Hematocrit 27.7 % (33.0-51.0); Hemoglobin 8.3 g/dL (11.5-16.0)
[2019-11-19 05:42] LABS: Albumin, Blood 2.3 g/dL (3.4-5.0); Anion Gap 6 mmol/L (6-16); Blood Urea Nitrogen 76 mg/dL (8-24); Bun/Creatinine Ratio 41.3 (12.0-20.0); CO2, Blood 33 mmol/L (21-32); Calcium, Blood 8.7 mg/dL (8.5-10.1); Chloride, Blood 101 mmol/L (98-108); Creatinine, Blood 1.84 mg/dL (0.40-1.00); Glomerular Filtration Rate 30 (60-); Glucose, Blood 101 mg/dL (70-99); Magnesium, Blood 2.1 mg/dL (1.6-2.4); Phosphorus, Blood 2.9 mg/dL (2.5-4.9); Potassium, Blood 3.6 mmol/L (3.5-5.5); Sodium, Blood 140 mmol/L (136-145)
--- NOTE | 2019-11-19 06:31 | NUR ---
END SHIFT SUMMARY NO ACUTE CHANGES NOTED T/O THE SHIFT, PT SLEPT T/O THE NIGHT. DRESSING CHANGED THIS AM. VITAL SIGNS STABLE. CALL LIGHT IN REACH. BED IN LOWEST POSTION, WILL CONTINUE TO MONITOR UNTIL DAYSHIFT NURSE ARRIVES.
--- NOTE | 2019-11-19 15:25 | NUR ---
SHIFT SUMMARY HARVEY GOT TYLENOL FOR MILD GENERALIZED AND KNEE PAIN THIS SHIFT. FAMILY VISITED. SHE HAD A SMALL BM ON BED BROTHERS. ROMERO INTACT AND DRAINING, ROMERO CARE DONE. COCCYX/BUTTOCK SKIN INTACT, BUT VERY WEEPY SKIN ON BLE. R HIP AREA WEEPING THROUGH SEVERAL ABDS, DRESSING REPLACED WELL DISPOSABLE PADS UNDER LEGS. ON 3L OXYGEN (BASELINE), DOING WELL ON 1.5L FR. TOOK MEDS PRESCRIBED, PLEASANT AND COOPERATIVE WITH CARE. CALL LIGHT IN REACH, TM
--- NOTE | 2019-11-19 18:23 | NUR ---
ASSUMED CARE AT 1530. PT RESTING WELL AND REQUEST TO NOT BE AWAKENED FOR BEDSIDE REPORT. PT MEDICATED WITH SCHDULED MEDS. PT TOLORATED DINNER WELL. PT COMPLIANING OF FEELING ROMERO PULL, EDIL CARE AND REPOSITIONING DONE. WILL REPORT TO NOC SHIFT FOR FURTHUR ASSESMENT. CALL LIGHT WITH IN REACH WILL REPORT TO ONCOMING NOC RN
--- NOTE | 2019-11-19 19:05 | NUR ---
Clinical Visit: Pt is uncomfortable. She believes her catheter to be bent or kinked underneath her. She is requesting repositioning from nursing. This will be addressed. Pt denies pain at this time. She states that she has been thinking about Code status. Reviewed POLST form. She states that she knows that she does not want to be intubated, however, she is still unsure about chest compressions. She is not ready to complete the POLST form and would like a return visit to discuss further.
[2019-11-20 05:05] LABS: Hematocrit 27.1 % (33.0-51.0); Hemoglobin 8.1 g/dL (11.5-16.0)
--- NOTE | 2019-11-20 05:10 | NUR ---
SHIFT SUMMARY NO ACUTE CHANGES THIS SHIFT. AOX4. VSS. DENIES N/V, DYSPNEA. REPORTS 7/10 PAIN IN BILAT KNEES, MEDICATED W/TYLENOL & REPORTS RELIEF. ON 3L O2 (BASELINE). ROMERO IS PATENT & DRAINING, DENIES BURNING OR PRESSURE FEELING. BANDAGE ON R HIP WAS CHANGED SINCE SKIN TEAR HAS A MODERATE AMOUNT SEROUS DRAINAGE. CALL LIGHT IN REACH. WCTM.
[2019-11-20 05:40] LABS: Albumin, Blood 2.2 g/dL (3.4-5.0); Anion Gap 6 mmol/L (6-16); Blood Urea Nitrogen 72 mg/dL (8-24); CO2, Blood 33 mmol/L (21-32); Calcium, Blood 8.9 mg/dL (8.5-10.1); Chloride, Blood 101 mmol/L (98-108); Glomerular Filtration Rate 30 (60-); Glucose, Blood 103 mg/dL (70-99); Phosphorus, Blood 2.5 mg/dL (2.5-4.9); Potassium, Blood 3.7 mmol/L (3.5-5.5); Sodium, Blood 140 mmol/L (136-145)
--- NOTE | 2019-11-20 17:48 | NUR ---
NO ACUTE CHANGES THIS SHIFT. PATIENT AWAITING PLACEMENT. POSSIBLE PLACEMENT IN A IRU IN [place]. VSS, MAINTAINING SATS ON 3LO3. DRESSING TO R KNE CHANGED X1 THIS SHIFT. OTHER WOUNDS CONTINUE TO HEAL. FOLDS CLEANSED AND NYSTATING POWDER APPLIED. PATIENT IS CALM AND COOPERATIVE WITH CARE AND CALLS APPROPRIATELY FOR ASSISTANCE. TOLERATING DIET, COMPLIANT WITH 1500 ML FLUID RESTRICTION.
[2019-11-21 05:15] LABS: Hematocrit 27.5 % (33.0-51.0); Hemoglobin 8.3 g/dL (11.5-16.0)
[2019-11-21 05:58] LABS: Albumin, Blood 2.3 g/dL (3.4-5.0); Anion Gap 7 mmol/L (6-16); Blood Urea Nitrogen 68 mg/dL (8-24); Bun/Creatinine Ratio 37.8 (12.0-20.0); CO2, Blood 33 mmol/L (21-32); Calcium, Blood 8.9 mg/dL (8.5-10.1); Chloride, Blood 100 mmol/L (98-108); Glomerular Filtration Rate 30 (60-); Glucose, Blood 104 mg/dL (70-99); Phosphorus, Blood 2.6 mg/dL (2.5-4.9); Potassium, Blood 3.8 mmol/L (3.5-5.5); Sodium, Blood 140 mmol/L (136-145)
--- NOTE | 2019-11-21 19:30 | NUR ---
SHIFT SUMMARY: NO ACUTE CHANGES TO REPORT THIS SHIFT. PT A&O; CALM AND COOPERATIVE WITH CARE. PT ON BEDREST. NO C/O PAIN OR NAUSEA THIS SHFIT. PHYSICAL THERAPY FOLLOWING. AWAITING PLACEMENT. REPROT GIVEN TO ONCOMING RN.
--- NOTE | 2019-11-21 23:24 | NUR ---
59 year old female with acute kidney superimposed on CKD awaiting placement potentially in [facility]. She is airbed and has nath cath. She has lost significant wt with diuresis and fluid restriction. Morbidly obese. PT is lift for transfers. Report from Gabriela LYNNE assumed care. PT on chronic oxygen. PT has chronic wounds. Dependant for ADLS. Able to communicate and compliant with medications and fluid restrictions.
--- NOTE | 2019-11-22 03:26 | NUR ---
Pt continues with multiple skin issues, rt thigh serous drainage. dressing changed. Chronic oxygen use a baseline.Morbid obesity limits mobility.
[2019-11-22 04:56] LABS: Hematocrit 28.4 % (33.0-51.0); Hemoglobin 8.5 g/dL (11.5-16.0)
[2019-11-22 05:14] LABS: Albumin, Blood 2.2 g/dL (3.4-5.0); Anion Gap 7 mmol/L (6-16); Blood Urea Nitrogen 68 mg/dL (8-24); Bun/Creatinine Ratio 34.2 (12.0-20.0); CO2, Blood 32 mmol/L (21-32); Chloride, Blood 99 mmol/L (98-108); Creatinine, Blood 1.99 mg/dL (0.40-1.00); Glomerular Filtration Rate 27 (60-); Glucose, Blood 102 mg/dL (70-99); Magnesium, Blood 1.9 mg/dL (1.6-2.4); Phosphorus, Blood 2.5 mg/dL (2.5-4.9); Potassium, Blood 3.9 mmol/L (3.5-5.5); Sodium, Blood 138 mmol/L (136-145)
--- NOTE | 2019-11-22 07:22 | NUR ---
DR Graf called with orders to change bumex and potassium to QOD skip todays dose. Also ongoing wound care to chronic wounds.
--- NOTE | 2019-11-22 14:31 | NUR ---
Palliative Care Note: Multiple attempts made by our department to complete an AD and/or POLST with pt at her expressed interest. However, pt has put off completing AD multiple times in past 2 weeks, stating she wants to discuss with options with her sister, who has not been present at any time that I am aware of. Pt has requested DNI status and that order was changed last week. She is undecided regarding CPR. I am unable to complete a POLST or AD with pt until she requests or states she would like to. Pal Care will remain available to assist with this pending new request from pt. CM working on placement in appropriate bariatric facility.
--- NOTE | 2019-11-22 19:21 | NUR ---
SHIFT SUMMARY: NO ACUTE CHANGES TO REPORT THSI SHIFT. PT A&O; CALM AND COOEPRATIVE WITH CARE. NO C/O PAIN OR NAUSEA THIS SHIFT. O2 @ 3L-3L @ HOME. ROMERO IN PLACE FOR RETENTION & I&Os; PATENT AND DRAINIING. NYSTATIN TO FOLDS; WOUND CARE TO R LATERAL THIGH WOUND. DIURETICS CONTINUING; AWAITING PLACEMENT. REPORT GIVEN TO ONCOMING RN.
--- NOTE | 2019-11-22 23:45 | NUR ---
PATIENT RESTING IN BED. ON 3L O2 NC. ROMERO PATENT AND DRAINING. CALL LIGHT IN REACH.
--- NOTE | 2019-11-23 03:18 | NUR ---
SHIFT SUMMARY PATIENT HAD NO ACUTE CHANGES OBSERVED. AXOX 3 AND MORBIDLY OBESE, LIFT ROOM. ROMERO PATENT AND DRAINING. FLUID RESTRICTIONS 1,500 mL. ON 3L O2 NC BASELINE. NYSTATIN POWDER APPLIED TO SKIN FOLDS. DRESSING ON RIGHT THIGH CHANGED. NO IV ACCESS. TAKES MEDICATION WHOLE WITH WATER. VSS/AFEBRILE. REPORTED KNEE PAIN AND ASKED FOR TYLENOL PER EMAR. DENIES SOB AND N/V. CALL LIGHT IN REACH. BED IN LOWEST POSITION. WILL CONTINUE TO MONITOR UNTIL DAY SHIFT NURSE ASSUMES CARE.
[2019-11-23 05:00] LABS: Hemoglobin 8.3 g/dL (11.5-16.0)
[2019-11-23 05:25] LABS: Albumin, Blood 2.2 g/dL (3.4-5.0); Anion Gap 6 mmol/L (6-16); Blood Urea Nitrogen 63 mg/dL (8-24); Bun/Creatinine Ratio 32.6 (12.0-20.0); CO2, Blood 34 mmol/L (21-32); Calcium, Blood 8.9 mg/dL (8.5-10.1); Chloride, Blood 99 mmol/L (98-108); Creatinine, Blood 1.93 mg/dL (0.40-1.00); Glomerular Filtration Rate 28 (60-); Glucose, Blood 113 mg/dL (70-99); Phosphorus, Blood 2.4 mg/dL (2.5-4.9); Potassium, Blood 3.8 mmol/L (3.5-5.5); Sodium, Blood 139 mmol/L (136-145)
--- NOTE | 2019-11-23 18:05 | NUR ---
PT ALERT, ORIENTED, AND COOPERATIVE WITH CARE THROUGHOUT THIS SHIFT. PT BEDBOUND AT BASELINE. PT ABLE TO REPOSITION IN BED WITH USE OF GRAVITY. DRESSING ON RIGHT LEG CHANGED THIS AFTERNOON. MINOR DRAINAGE PRESENT. FOLDS CLEANED AND NYSTATIN POWDER APPLIED PER ORDERS. PT SITTING UP IN BED EATING DINNER.
--- NOTE | 2019-11-24 04:58 | NUR ---
SHIFT SUMMARY: NO ACUTE CHANGES OVER NIGHT. VSS. AFEB. A/OX4. MAKES NEEDS KNOWN. REQUESTED TYL FOR B KNEE PAIN. HAS SLEPT THROUGH MUCH OF THE NIGHT. BED LOW, CALL BUTTON IN REACH.
[2019-11-24 05:19] LABS: Hematocrit 28.9 % (33.0-51.0); Hemoglobin 8.7 g/dL (11.5-16.0)
[2019-11-24 06:00] LABS: Albumin, Blood 2.2 g/dL (3.4-5.0); Anion Gap 8 mmol/L (6-16); Blood Urea Nitrogen 63 mg/dL (8-24); CO2, Blood 32 mmol/L (21-32); Chloride, Blood 99 mmol/L (98-108); Creatinine, Blood 1.91 mg/dL (0.40-1.00); Glomerular Filtration Rate 28 (60-); Glucose, Blood 100 mg/dL (70-99); Phosphorus, Blood 3.1 mg/dL (2.5-4.9); Potassium, Blood 3.9 mmol/L (3.5-5.5); Sodium, Blood 139 mmol/L (136-145)
--- NOTE | 2019-11-24 18:57 | NUR ---
SHIFT SUMMARY PT AXO, PLEASANT AND COOPERATIVE WITH CARE. NO ACUTE CHANGES THIS SHIFT. VSS. NYSTATIN APPLIED AFTER SKIN FOLDS CLEANSED AND DRIED. PT DENIES PAIN, SOB AND AND NV. BED IN LOW POSITION, CALL LIGHT WITHIN REACH.
--- NOTE | 2019-11-25 05:18 | NUR ---
SHIFT SUMMARY: VSS. AFEB. A/OX4 AT BASELINE. MAKES NEEDS KNOWN. TYL FOR KNEE PAIN AT HS WITH GOOD EFFECT. PT STATES SHE HAS BEEN ITCHING MORE OVER THE LAST FEW NIGHT. RED NON-RAISED AREA ON R ANT SHOULDER. LOTION APPLIED. WILL NOTIFY ONCOMING SHIFT. DRSG CHANGED TO R LATERAL THIGH, YELLOW/GREEN DRAINAGE OBSERVED. PT DENIES PAIN AT THE SITE. BED LOW, CALL BUTTON IN REACH.
[2019-11-25 05:24] LABS: Hematocrit 28.9 % (33.0-51.0); Hemoglobin 8.7 g/dL (11.5-16.0)
[2019-11-25 05:45] LABS: Albumin, Blood 2.2 g/dL (3.4-5.0); Anion Gap 8 mmol/L (6-16); Blood Urea Nitrogen 60 mg/dL (8-24); Bun/Creatinine Ratio 29.6 (12.0-20.0); CO2, Blood 31 mmol/L (21-32); Calcium, Blood 8.6 mg/dL (8.5-10.1); Chloride, Blood 99 mmol/L (98-108); Creatinine, Blood 2.03 mg/dL (0.40-1.00); Glomerular Filtration Rate 26 (60-); Glucose, Blood 103 mg/dL (70-99); Phosphorus, Blood 3.6 mg/dL (2.5-4.9); Potassium, Blood 3.9 mmol/L (3.5-5.5); Sodium, Blood 138 mmol/L (136-145)
--- NOTE | 2019-11-25 06:32 | NUR ---
DR. LONDONO, COVERING FOR DR. MELENDREZ, IN TO SEE PT THIS AM. INFORMED HIM OF K+ AND BUMEX ORDERS WRITTEN EVERY OTHER DAY RATHER THAN QD DR. MELENDREZ HAD ORDERED ON 11/24. ORDER ADJUSTED TO QD. DR. LONDONO AWARE.
--- NOTE | 2019-11-25 17:23 | NUR ---
SHIFT SUMMARY NO ACUTE CHANGES TODAY. PATIENT RECIEVED A COMPLETE BED BATH. DR GUILLAUME EXAMINED WOUND TO R THIGH. DRESSING CHANGED. BENADRYL GIVEN PER ORDERS FOR NEW RASH TO CHEST AND ARMS. TYLENOL X1 FOR BILAT KNEE PAIN. PATIENT AWAITING SAFE DC PLACEMENT.
--- NOTE | 2019-11-26 04:09 | NUR ---
SHIFT SUMMARY PATIENT HAD NO ACUTE CHANGES OBSERVED. AXOX 3 AND BEDFAST. LIFT PATIENT MORBIDLY OBSESE. FLUID RESTRICTION 1,500 mL. REPORTED BILATERAL KNEE PAIN AND TYLENOL GIVEN PER EMAR. PO BENADRYL GIVEN FOR ARM/CHEST RASH. VSS/AFEBRILE. DENIES SOB AND N/V. ON 3L O2 NC BASELINE. NYSTATIN POWER APPLIED TO SKIN FOLDS T/O. COOPERATIVE WITH CARE. CALL LIGHT IN REACH. BED IN LOWEST POSITION. WILL CONTINUE TO MONITOR UNTIL DAY SHIFT NURSE ASSUMES CARE.
[2019-11-26 05:45] LABS: BASOPHILS ABSOLUTE AUTO 0.02 K/mm3 (0.00-0.23); BASOPHILS PERCENT AUTO 0 % (0-2); EOSINOPHILS ABSOLUTE AUTO 0.75 K/mm3 (0.00-0.68); EOSINOPHILS PERCENT AUTO 13 % (0-6); Hematocrit 28.4 % (33.0-51.0); Hemoglobin 8.7 g/dL (11.5-16.0); IMMATURE GRAN ABSOLUTE AUTO 0.09 K/mm3 (0.00-0.10); IMMATURE GRAN PERCENT AUTO 2 % (0-1); LYMPHOCYTES ABSOLUTE AUTO 0.87 K/mm3 (0.84-5.20); LYMPHOCYTES PERCENT AUTO 15 % (21-46); MONOCYTES ABSOLUTE AUTO 0.55 K/mm3 (0.16-1.47); MONOCYTES PERCENT AUTO 10 % (4-13); Mean Corpuscular HGB 30.9 pg (26.0-34.0); Mean Corpuscular HGB Conc 30.6 g/dL (31.5-36.5); Mean Corpuscular Volume 101 fL (80-100); Mean Platelet Volume 11.6 fL (9.1-12.4); NEUTROPHILS ABSOLUTE AUTO 3.46 K/mm3 (1.96-9.15); NEUTROPHILS PERCENT AUTO 60 % (41-73); Platelet Count 165 K/mm3 (150-400); RDW Coefficient Variation 16.4 % (11.7-14.2); RDW Standard Deviation 61.4 fL (35.1-46.3); Red Blood Cell Count 2.82 M/mm3 (3.80-5.20); White Blood Cell Count 5.74 K/mm3 (4.00-11.30)
[2019-11-26 06:05] LABS: Albumin, Blood 2.3 g/dL (3.4-5.0); Anion Gap 6 mmol/L (6-16); Blood Urea Nitrogen 57 mg/dL (8-24); Bun/Creatinine Ratio 27.7 (12.0-20.0); CO2, Blood 32 mmol/L (21-32); Calcium, Blood 8.7 mg/dL (8.5-10.1); Chloride, Blood 98 mmol/L (98-108); Creatinine, Blood 2.06 mg/dL (0.40-1.00); Glomerular Filtration Rate 26 (60-); Glucose, Blood 92 mg/dL (70-99); Phosphorus, Blood 3.5 mg/dL (2.5-4.9); Potassium, Blood 3.9 mmol/L (3.5-5.5); Sodium, Blood 136 mmol/L (136-145)
--- NOTE | 2019-11-26 13:35 | NUR ---
PALLIATIVE CARE VISIT: Follow up visit made to review code status. Pt requests DNR status. Agata expressed frustration that her sister, Astrid, is still in [place] and has not made herself available to discuss her care with her. Pt reports that she spoke with Dr further about it this am. She has spoken to her niece and wants to be DNR with no intubation or compressions (CPR) desired. POLST form completed to reflect patient's wishes. Reviewed with RN and and left for Dr to sign when rounding. VO obtained and entered for DNR orders. Instructed Agata that I would bring the POLST back to her to keep after signed. Pt just starting to eat lunch. S/S assessment done briefly. Chief c/o is itching and rash. She has topical rx to apply and has. FITNESS COACH to help her get areas on back she cannot reach. Will f/u tomorrow on processing POLST and s/s assessment.
--- NOTE | 2019-11-26 15:18 | NUR ---
SHIFT SUMMARY PT IS A/O X 4 AND BEDBOUND AT BASELINE. SHE HAS NO C/O PAIN. SHE DOES C/O OF AN ITCHING RED RASH TO HER CHEST AND SHOULDERS. DR OJEDA WAS NOTIFIED AND ORDERED A BENADRYL CREAM WHICH WAS APPLIED. ROMERO IS PATENT WITH YELLOW OUTPUT. PT IS ON 3LPM OF O2 VIA N.C. AT BASELINE AND HAS NO S/S OF RESP DISTRESS. HER SKIN IS FRAGILE IN THE FOLDS AND THERE IS A SMALL POPPED BLISTER ON THE OUTSIDE OF HER RIGHT THIGH, IT WAS CLEANSED AND A NEW FOAM DRESSING WAS APPLIED. PT CONTINUES TO WAIT ON PLACEMENT. SHE IS ABLE TO MAKE HER NEEDS KNOWN AND CALLS FOR HELP WHEN NEEDED.
--- NOTE | 2019-11-26 15:41 | NUR ---
Pt has complaints of skin irritation, cream was applied by nurse earlier. I explained to patient that the cream may not have had enough time to work, and I wasn't sure when it was allowed to be reaplied by the nurse, expained to patient it could take hours before next application, not sure if medicated cream is PRN for Nurse to administer, Pt asked my help to apply to shoulderblade area, I mentioned its a medicated cream to nurse, is it in my scope of practice. Pt was wanting to here back from nurse about when nistatin powder would be put on. Nurse notified by TRANSLATOR.
--- NOTE | 2019-11-27 05:08 | NUR ---
SHIFT SUMMARY DIAGNOSED W/DALY. LIMITED CODE: NO INTUBATION, NO CPR, MEDS OK. 1500 ML FLUID RESTRICTION. RASH HAS DEVELOPED ON CHEST AND UPPER ARMS, TX W/ORAL BENEDRYL AND TOPICAL BENEDRYL CREAM. 3 LPM O2. AWAITING PLACEMENT. MORBIDLY OBESE LIFT PATIENT. DRESSING ON RT HIP. 2 G LOW NA+ DIET. ROMERO IS PATENT AND DRAINING. HX: CHF, HYPOTHYROID, HTN, ANEMIA, PICKWICKIAN SYNDROME, CKD. A&O X4.
[2019-11-27 05:14] LABS: BASOPHILS ABSOLUTE AUTO 0.02 K/mm3 (0.00-0.23); BASOPHILS PERCENT AUTO 0 % (0-2); EOSINOPHILS PERCENT AUTO 13 % (0-6); Hematocrit 29.1 % (33.0-51.0); Hemoglobin 8.7 g/dL (11.5-16.0); IMMATURE GRAN ABSOLUTE AUTO 0.11 K/mm3 (0.00-0.10); IMMATURE GRAN PERCENT AUTO 2 % (0-1); LYMPHOCYTES ABSOLUTE AUTO 0.82 K/mm3 (0.84-5.20); LYMPHOCYTES PERCENT AUTO 13 % (21-46); MONOCYTES ABSOLUTE AUTO 0.69 K/mm3 (0.16-1.47); MONOCYTES PERCENT AUTO 11 % (4-13); Mean Corpuscular HGB 30.3 pg (26.0-34.0); Mean Corpuscular HGB Conc 29.9 g/dL (31.5-36.5); Mean Corpuscular Volume 101 fL (80-100); Mean Platelet Volume 11.7 fL (9.1-12.4); NEUTROPHILS ABSOLUTE AUTO 3.67 K/mm3 (1.96-9.15); NEUTROPHILS PERCENT AUTO 60 % (41-73); Platelet Count 177 K/mm3 (150-400); RDW Coefficient Variation 16.5 % (11.7-14.2); RDW Standard Deviation 61.4 fL (35.1-46.3); Red Blood Cell Count 2.87 M/mm3 (3.80-5.20); White Blood Cell Count 6.11 K/mm3 (4.00-11.30)
[2019-11-27 05:29] LABS: Albumin, Blood 2.3 g/dL (3.4-5.0); Anion Gap 6 mmol/L (6-16); Blood Urea Nitrogen 61 mg/dL (8-24); Bun/Creatinine Ratio 28.6 (12.0-20.0); CO2, Blood 33 mmol/L (21-32); Calcium, Blood 8.7 mg/dL (8.5-10.1); Chloride, Blood 98 mmol/L (98-108); Creatinine, Blood 2.13 mg/dL (0.40-1.00); Glomerular Filtration Rate 25 (60-); Glucose, Blood 94 mg/dL (70-99); Phosphorus, Blood 3.7 mg/dL (2.5-4.9); Potassium, Blood 4.1 mmol/L (3.5-5.5); Sodium, Blood 137 mmol/L (136-145)
--- NOTE | 2019-11-27 12:20 | NUR ---
PT AOX4 AND COOPERATIVE OF CARE. PT BED BOUND AND NEEDS HELP TO REPOSITION. PT CALLS APPROPRIATELY. PT RECIEVED BED BATH AND HAD NYSTATIN AND ITCH CREAM APPLIED PER EMAR. PT STILL HAVING TROUBLE WITH HER SKIN RASH ACCROSS CHEST AND UPPER ARMS. DR OJEDA AWARE AND PT IS BEING TREATED PER EMAR. CARE BEING TRANSFERED TO GUERA CUENCA.
--- NOTE | 2019-11-27 17:23 | NUR ---
PT AOX4 AND HAD REPORTED CHEST PAIN AND WAS HAVING RAPID HR. THIS WAS HANDLED BY CHARGE NURSE AND DR KELLOGG WAS NOTIFIED. IMAGES WHERE TAKEN AND PT HAD MEDICAITON ADDED TO EMAR. PAIN TREATED PER EMAR. PT STATES SHE IS FEELING BETTER AT THIS TIME WILL CONTINUE TO MONITOR. TELEMETRY HAS BEEN ADDED FOR ADDED MONITORING.
--- NOTE | 2019-11-27 17:28 | NUR ---
PT HAS HAD NO RECENT EVENT TODAY. PT CALLS APPROPRAITLY AND GETS TURNED AND REPOSITIONED EVERY COUPLE HOURS. DENIES PAIN TODAY, WILL CONTINUE TO MONITOR.
--- NOTE | 2019-11-28 04:42 | NUR ---
DIAMOND SIZER AND SORTER SUMMARY NO ACUTE CHANGES THIS SHIFT. PT AAOX4 AND PLEASANT. PROVIDED PARTIAL BEDBATH AT HS FOCUSING ON SKIN FOLDS. APPLIED NYSTATIN POWDER TO AREAS WITH REDNESS. REDDENED AREAS MUCH IMPROVED COMPARED TO WHEN I HAD THIS PT A COUPLE WEEKS AGO. ROMERO CATH STILL PATENT AND DRAINING. PT REPOSITIONED TOLERATED. VSS, WILL CONTINUE TO MONITOR.
[2019-11-28 05:26] LABS: BASOPHILS ABSOLUTE AUTO 0.02 K/mm3 (0.00-0.23); BASOPHILS PERCENT AUTO 0 % (0-2); EOSINOPHILS ABSOLUTE AUTO 0.88 K/mm3 (0.00-0.68); EOSINOPHILS PERCENT AUTO 14 % (0-6); Hematocrit 28.5 % (33.0-51.0); Hemoglobin 8.6 g/dL (11.5-16.0); IMMATURE GRAN ABSOLUTE AUTO 0.08 K/mm3 (0.00-0.10); IMMATURE GRAN PERCENT AUTO 1 % (0-1); LYMPHOCYTES PERCENT AUTO 13 % (21-46); MONOCYTES ABSOLUTE AUTO 0.63 K/mm3 (0.16-1.47); MONOCYTES PERCENT AUTO 10 % (4-13); Mean Corpuscular HGB 30.8 pg (26.0-34.0); Mean Corpuscular HGB Conc 30.2 g/dL (31.5-36.5); Mean Corpuscular Volume 102 fL (80-100); Mean Platelet Volume 11.9 fL (9.1-12.4); NEUTROPHILS PERCENT AUTO 61 % (41-73); Platelet Count 171 K/mm3 (150-400); RDW Coefficient Variation 16.3 % (11.7-14.2); RDW Standard Deviation 61.2 fL (35.1-46.3); Red Blood Cell Count 2.79 M/mm3 (3.80-5.20); White Blood Cell Count 6.11 K/mm3 (4.00-11.30)
[2019-11-28 06:08] LABS: Albumin, Blood 2.1 g/dL (3.4-5.0); Anion Gap 8 mmol/L (6-16); Blood Urea Nitrogen 59 mg/dL (8-24); Bun/Creatinine Ratio 26.8 (12.0-20.0); CO2, Blood 29 mmol/L (21-32); Calcium, Blood 8.5 mg/dL (8.5-10.1); Chloride, Blood 98 mmol/L (98-108); Glomerular Filtration Rate 24 (60-); Glucose, Blood 95 mg/dL (70-99); Phosphorus, Blood 3.8 mg/dL (2.5-4.9); Potassium, Blood 4.3 mmol/L (3.5-5.5); Sodium, Blood 135 mmol/L (136-145)
--- NOTE | 2019-11-28 14:51 | NUR ---
11/28/2019 PT GAVE PERMISSION FOR [facility] TO PROVIDE CARE ON 11/29/2019.
--- NOTE | 2019-11-28 18:22 | NUR ---
NO ACUTE CHANGES THIS SHIFT. PATIENT CONTINUES TO AWAIT DETENTION PLACEMENT.
--- NOTE | 2019-11-28 20:10 | NUR ---
HARVEY IS IN BED WATCHING TV. STATES NO CHANGES TODAY. RASH TO UPPER CHEST AREA AND ARMS, FACE. STATES IT IS IMPROVING. DENIES ANY PAIN OR DISCOMFORT. STATES SHE WILL AT LEAST TAKE HER TYLENOL AT NIGHT LIKE SHE ALWAYS DOES. DRESSING CHANGED TO THE RIGHT KNEE AREA, WOUND IS HEALING WELL, VERY SHALLOW, WITH GOOD GRANULATION TISSUE. CLEANSED AND APPLIED NEW MEPILEX. CALL LIGHT IN REACH.
[2019-11-29 05:05] LABS: Hematocrit 29.5 % (33.0-51.0); Hemoglobin 8.9 g/dL (11.5-16.0)
[2019-11-29 05:38] LABS: Albumin, Blood 2.3 g/dL (3.4-5.0); Anion Gap 7 mmol/L (6-16); Blood Urea Nitrogen 60 mg/dL (8-24); Bun/Creatinine Ratio 26.7 (12.0-20.0); CO2, Blood 31 mmol/L (21-32); Calcium, Blood 8.8 mg/dL (8.5-10.1); Chloride, Blood 98 mmol/L (98-108); Creatinine, Blood 2.25 mg/dL (0.40-1.00); Glomerular Filtration Rate 23 (60-); Glucose, Blood 92 mg/dL (70-99); Magnesium, Blood 2.1 mg/dL (1.6-2.4); Phosphorus, Blood 3.8 mg/dL (2.5-4.9); Potassium, Blood 4.4 mmol/L (3.5-5.5); Sodium, Blood 136 mmol/L (136-145)
--- NOTE | 2019-11-29 05:59 | NUR ---
SHIFT SUMMARY: HARVEY HAS REMAINED STABLE THROUGHOUT THE SHIFT. VS WNL. RASH TO UPPER CHEST AND ARMS CONTINUES TO IMPROVE SLOWLY. CATHETER REMAINED PATENT AND DRAINING. DRESSING TO RIGHT KNEE WAS CHANGED, WOUND IS HEALING, SHALLOW WITH SEROUS DRAINAGE. SHE CONTINUES TO FOLLOW FLUID RESTRICTION. PAIN MILD AND TOLERABLE THIS SHIFT. NO OTHER CHANGES TO REPORT. CALL LIGHT REMAINED IN REACH.
--- NOTE | 2019-11-29 19:40 | NUR ---
HARVEY IS DOING WELL, NO CHANGES OTHER THEN PLACED ON IV BENADRYL FOR HER RASH. SHE ALSO GOT A IV STARTED IN THE RIGHT AC, FLUSHES WELL. CATHETER STILL PATENT AND DRAINING. NO NEWS ON PLACEMENT OF YET. LUNG SOUNDS STILL DIMINSHED, DRESSING TO RIGHT KNEE IS CDI. HAD PADS CHANGED TODAY FROM UNDERNEATH HER. WILL CONTINUE TO MONITOR.
[2019-11-30 05:04] LABS: Hematocrit 28.2 % (33.0-51.0); Hemoglobin 8.5 g/dL (11.5-16.0)
--- NOTE | 2019-11-30 05:43 | NUR ---
SHIFT SUMMARY: HARVEY VS HAVE REMAINED STABLE. SHE CONTINUES TO FOLLOW HER FLUID RESTRICTION AND STAYS WITH IN THE LIMITS. DRESSING TO THE RIGHT KNEE HAS REMAINED DRY AND INTACT. SKIN FOLDS CONTINUE TO IMPROVE WITH NYSTATIN POWDER. RASH TO UPPER CHEST/ARMS/FACE AND NECK IS IMPROVING SLIGHTLY WITH THE IV BENADRYL. SLEPT WELL THROUGHOUT THE NIGHT WITH NO ACUTE CHANGES OR CONCERNS. CALL LIGHT REMAINED IN REACH AND USED APPROPRIATLY.
[2019-11-30 05:46] LABS: Magnesium, Blood 2.1 mg/dL (1.6-2.4)
[2019-11-30 05:47] LABS: Albumin, Blood 2.2 g/dL (3.4-5.0); Anion Gap 6 mmol/L (6-16); Blood Urea Nitrogen 60 mg/dL (8-24); Bun/Creatinine Ratio 26.3 (12.0-20.0); CO2, Blood 32 mmol/L (21-32); Calcium, Blood 8.7 mg/dL (8.5-10.1); Chloride, Blood 98 mmol/L (98-108); Creatinine, Blood 2.28 mg/dL (0.40-1.00); Glomerular Filtration Rate 23 (60-); Glucose, Blood 92 mg/dL (70-99); Phosphorus, Blood 3.7 mg/dL (2.5-4.9); Potassium, Blood 4.7 mmol/L (3.5-5.5); Sodium, Blood 136 mmol/L (136-145)
--- NOTE | 2019-11-30 19:34 | NUR ---
SHIFT SUMMARY: NO ACUTE CHANGES TO REPORT THIS SHIFT. PT A&O; CALM AND COOPERATIVE WITH CARE. MEDICATED FOR ALLERGIES PER EMAR. ROMERO IN PLACE FOR STRICT I&O; PATENT AND DRAINING. R KNEE (LATERAL) WOUND; MEPILEX IN PLACE; HEALING WNL. PHYSICAL THERAPY FOLLOWING. AWAITING PLACEMENT. REPORT GIVEN TO ONCOMING RN.
--- NOTE | 2019-11-30 20:23 | NUR ---
HARVEY IS WATCHING TV. SHE WAS EXCITED SHE TOLD ME THAT SHE HAS LOST AROUND 80LBS SINCE SHE HAS BEEN HERE. SHE HOPES IT CONTINUES TO GO DOWN. ENCOURAGE HER TO CONTINUE DOING WHAT SHE IS DOING SHE HAS BEEN STRONG AND KEEPING CONTROL HERE. SHE ALSO STATES THE RASH HAS IMPROVED SOME SHE DOES NOT ITCH MUCH BUT IT IS STILL PRESENT ALL OVER THE UPPER CHEST AREA. WILL GIVE HER MORE BENADRYL WITH NIGHT MEDS. NO OTHER ACUTE CHANGES TODAY. CALL LIGHT IN REACH.
--- NOTE | 2019-11-30 22:48 | NUR ---
HARVEY WAS TURNED SIDE TO SIDE GIVING HER A PARTIAL BED BATH, CLEANSED EACH FOLD, DRIED AND APPLIED NYSTATIN POWDER. CATHETER AND EDIL CARE COMPLETED. LINEN CHANGE DONE. REPOSITIONED UP IN BED, WIPING OFF THE BED. IV WAS CAUSING PAIN AND HAD LEAKAGE WHEN FLUSHED. REMOVED IV AND CALLED CHARGE NURSE TO SEE IF SHE CAN PUT ONE BACK IN. CALL LIGHT GIVEN, SIDE RAILS UP.
[2019-12-01 05:04] LABS: Hematocrit 28.8 % (33.0-51.0); Hemoglobin 8.6 g/dL (11.5-16.0)
--- NOTE | 2019-12-01 05:06 | NUR ---
SHIFT SUMMARY: HARVEY VS HAVE REMAINED STABLE. PARTIAL BED BATH WAS PERFORMED, NYSTATIN TO ALL SKIN FOLDS. NOTED SMALL WOUND TO RIGHT GROIN SKIN FOLD, SHALLOW WITH PINK WOUND BED, APPEARS TO HVE BEEN A BLISTER THAT OPENED UP. PERICARE AND CATH CARE PROVIDED. ROMERO PATENT AND DRAINING. IV TO RIGHT AC DC'D DUE TO PAIN AND DISCOMFORT. NEW IV STARTED TO RIGHT FA 20G. RASH NOTED TO HAVE SPREAD TO LOWER ABDOMIN. COME TO THINK IT IS POSSIBLY THE GOWNS THAT ARE CAUSING HER RASH. IT IS NOTED EVERY WHERE THE GOWN HAS TOUCHED. PAIN TOLERABLE. CONTINUED ON IV BENADRYL AND CREAM FOR RASH. NO OTHER CHANGES TO NOTE.
[2019-12-01 05:40] LABS: Magnesium, Blood 2.2 mg/dL (1.6-2.4)
[2019-12-01 05:45] LABS: Albumin, Blood 2.2 g/dL (3.4-5.0); Anion Gap 7 mmol/L (6-16); Blood Urea Nitrogen 59 mg/dL (8-24); Bun/Creatinine Ratio 26.2 (12.0-20.0); CO2, Blood 29 mmol/L (21-32); Calcium, Blood 8.8 mg/dL (8.5-10.1); Chloride, Blood 99 mmol/L (98-108); Creatinine, Blood 2.25 mg/dL (0.40-1.00); Glomerular Filtration Rate 23 (60-); Glucose, Blood 92 mg/dL (70-99); Phosphorus, Blood 3.9 mg/dL (2.5-4.9); Potassium, Blood 4.7 mmol/L (3.5-5.5); Sodium, Blood 135 mmol/L (136-145)
--- NOTE | 2019-12-01 16:15 | NUR ---
Theraputic visit with patient she is increasing the benedryl for comfort from the rash. Offered diversion or theraputic activities pot declined she is to sleepy. Requested daily weights for pt so we can have trending. Unable to obtain facility that will accept her at this time. Review with care managers and review with nursing. Review with nursing pt diet and po intake and expanding a bariatric care plan. Suggest review with dietary on care plan, suggest reach out to [facility] bariatric program see if they will accept her. Consider renal consult to enhance bariatirc paln and protect her renal function. Suggest consider moving pt to another room with more window and light. Will continue theraputic visits for stimulus. Pt has rapport with GUERA Soriano from palliative care will send her for visits.
--- NOTE | 2019-12-01 18:04 | NUR ---
NO ACUTE CHANGES . PATIENT CONTINUES TO ITCH AND HAVE RASH ON UPPER TORSO AND EXTREMITIES . BED BATH GIVEN.
--- NOTE | 2019-12-02 04:52 | NUR ---
SHIFT SUMMARY ADMITTED FOR DALY ON CKD. LIMITED CODE: MEDS OK, NO CPR OR INTUBATION. PLAN IS FOR PLACEMENT IN A SNF. CHRONIC ROMERO CATHETER IN PLACE. 3 LPM O2 IS BASELINE. LIFT PT, 2 MAX ASSIST FOR REPOSITIONING. RASH ON FACE, CHEST, UPPER ARMS TX W/CREAMS AND IV BENEDRYL. RT HIP/LEG DRESSING CHANGED THIS SHIFT. HX: CKD, MORBID OBESITY, CHF, HYPOTHYROID, HTN, ANEMIA, THROMBOCYTOPENIA, PICKWICKIAN SYNDROME.
[2019-12-02 05:16] LABS: Hemoglobin 9.2 g/dL (11.5-16.0); Mean Corpuscular HGB 30.8 pg (26.0-34.0); Mean Corpuscular HGB Conc 30.7 g/dL (31.5-36.5); Mean Corpuscular Volume 100 fL (80-100); Mean Platelet Volume 11.4 fL (9.1-12.4); Platelet Count 173 K/mm3 (150-400); RDW Coefficient Variation 16.1 % (11.7-14.2); RDW Standard Deviation 59.4 fL (35.1-46.3); Red Blood Cell Count 2.99 M/mm3 (3.80-5.20); White Blood Cell Count 7.93 K/mm3 (4.00-11.30)
--- NOTE | 2019-12-02 16:59 | NUR ---
NO ACUTE CHANGES TO PATIENT. RASH IS IMPROVING. PATIENT STILL REQUIRING ANTI ITCH MEDICATION. CALL LIGHT WITHIN REACH.
--- NOTE | 2019-12-02 22:15 | NUR ---
LARGE AMOUNT OF TIME SPENT WITH BEDTIME CARE THIS EVENING. ALL SKIN FOLDS CLEANED AND DRIED. NYSTATIN POWDER APPLIED TO ALL FOLDS. CATHETER CARE COMPLETED AND NEW STAT LOCK APPLIED. FRESH DRESSING APPLIED TO WEEPING ON R LEG. NEW LIFT SHEET AND FLAT SHEET PLACED. SIDDIQI PADS PLACED BENEATH LEGS. PT APPRECIATIVE OF CARE. DENIES FURTHER NEEDS.
--- NOTE | 2019-12-03 00:31 | NUR ---
BEGINNING SHIFT SUMMARY ASSUMED CARE OF PT AT 1900. PT WAS LYING IN ROOM NAPPING. PT IS A/O X4, DENIES N/T AT THIS TIME. HEART SOUNDS DISTANT, LUNG SOUNDS DIMINISHED, PT DENIES SOB AT THIS TIME, PT HAS DYSPNEA WITH EXCERTION, PT ON 3L O2 AT BASLINE. PT HAS LARGE RASH ON UPPER BODY, MEDICATED PER EMAR. PT HAS MULTPILE WOUNDS IN HER FOLDS, FOLDS CLEANED AND NYASTATIN APPLIED. ROMERO DRAINING CLEAR, YELLOW URINE. PT IS CURRENTLY SLEEPING, CALL LIGHT IN REACH, BED IN LOWEST POSTION, WILL CONTINUE TO MONITOR.
--- NOTE | 2019-12-03 04:23 | NUR ---
END SHIFT SUMMARY NO ACTUE CHANGES NOTED T/O THE NIGHT. PT SLEPT MOST OF THE NIGHT EXCEPT FOR THIS MORNING WHEN SHE AWOKE BECAUSE SHE WAS ITCHING. MEDICATED PER EMAR. CALL LIGHT IN REACH, BED IN LOWEST POSTION, WILL CONTINUWE TO MONITOR UNTIL DAYSHIFT NURSE ARRIVES.
[2019-12-03 06:00] LABS: Magnesium, Blood 2.2 mg/dL (1.6-2.4)
[2019-12-03 06:03] LABS: Albumin, Blood 2.2 g/dL (3.4-5.0); Anion Gap 6 mmol/L (6-16); Blood Urea Nitrogen 59 mg/dL (8-24); Bun/Creatinine Ratio 24.7 (12.0-20.0); CO2, Blood 30 mmol/L (21-32); Calcium, Blood 8.8 mg/dL (8.5-10.1); Chloride, Blood 99 mmol/L (98-108); Creatinine, Blood 2.39 mg/dL (0.40-1.00); Glomerular Filtration Rate 22 (60-); Glucose, Blood 90 mg/dL (70-99); Phosphorus, Blood 3.8 mg/dL (2.5-4.9); Potassium, Blood 4.9 mmol/L (3.5-5.5); Sodium, Blood 135 mmol/L (136-145)
--- NOTE | 2019-12-03 18:06 | NUR ---
SHIFT SUMMARY- PT A/O, PLESANT AND COOPERATIVE. PT IS 2 PERSON ASSIST TO ROLL. PT USED THE BEDPAN THIS AFTERNOON AND HAD LARGE BM. CHANGED BANDAGED ON LEG AND APPLIED NYSTATIN TO SKIN FOLDS. PT RECIEVING BENADRYL AND CREAM APPLIED TO RASH ON CHEST, ARMS AND FACE. PT EATING AND DRINKING WELL. TOLERATING FLUID RESTRICTION. ROMERO IN PLACE PATIENT AND DRAINING WELL
--- NOTE | 2019-12-03 23:22 | NUR ---
BEGINNING SHIFT SUMMARY ASSUMED CARE OF PT AT 1900. PT WAS LYING IN BED WATCHING TV. PT STATED THAT SHE SLEPT ALL DAY AND HAS BEEN FEELING EXTRA TIRED LATELY. HEART SOUNDS DISTANT, LUNG SOUNDS DIMINISHED, PT ON 3L O2 AT BASELINE. PT DENIES SOB OR CP AT THIS TIME. PT STATED THAT SHE IS FEELING MORE EDEMATOUS TODAY, 3+ PITTSING EDEMA IN HER ABD AND BLE. PT STATES THAT SHE THINKS HER RASH IS GETTING BETTER. ROMERO DRAINING ALONG BED SIDE, URINE CLEAR AND YELLOW. CALL LIGHT IN REACH, BED IN LOWEST POSTION, WILL CONTINUE TO MONITOR.
--- NOTE | 2019-12-04 04:10 | NUR ---
END SHIFT SUMMARY PT SLEPT T/O THE NIGHT, EXCEPT AT 0330 WHEN SHE AWOKE BECAUSE SHE WAS ITCHING, MEDICATED PER EMAR. PT LEGS AND STOMACH ARE WEEPING ONTO THE SHEETS. PT STATED THAT SHE IS SEEING FAMILY TOMORROW AND HOPES THAT SHE ISNT SO TIRED TOMORROW. CALL LIGHT IN REACH, BED IN LOWEST POSTION, WILL CONTINUE TO MONITOR UNTIL DAYSHIFT NURSE ARRIVES.
[2019-12-04 05:38] LABS: Hematocrit 29.3 % (33.0-51.0); Hemoglobin 8.7 g/dL (11.5-16.0)
[2019-12-04 06:02] LABS: Albumin, Blood 2.3 g/dL (3.4-5.0); Anion Gap 4 mmol/L (6-16); Blood Urea Nitrogen 54 mg/dL (8-24); Bun/Creatinine Ratio 24.1 (12.0-20.0); CO2, Blood 33 mmol/L (21-32); Chloride, Blood 99 mmol/L (98-108); Creatinine, Blood 2.24 mg/dL (0.40-1.00); Glomerular Filtration Rate 24 (60-); Glucose, Blood 91 mg/dL (70-99); Magnesium, Blood 2.4 mg/dL (1.6-2.4); Potassium, Blood 4.9 mmol/L (3.5-5.5); Sodium, Blood 136 mmol/L (136-145)
--- NOTE | 2019-12-04 18:38 | NUR ---
SHIFT SUMMARY- PT IS A/O PLESANT AND COOPERATIVE. PT RECIEVED A BED BATH TODAY. USED THE BEDPAN AND HAD A LARGE BM. PT HAS A ROMERO AND IT IS PATIENT AND DRAINING WELL. PT HAS A RASH ON THE FACE AND NECK APPLIED MEDICATED LOTION PER MAR. PT STATES THAT IT IS NOT ITCHY IT WAS YESTERDAY. PT IS A MAX ASSIST.
--- NOTE | 2019-12-04 22:56 | NUR ---
BEGINNING SHIFT SUMMARY ASSUMED CARE OF PT AT 1900. PT IS ALERT AND ORIENTED, DENIES N/T AT THIS TIME. HEART SOUNDS DISTANT, LUNG SOUNDS CLEAR BUT DIMINISHED, PT ON 3L BASELINE NASAL CANNULA, DENIES SOB AT THIS TIME. CATHETER DRAINING, URINE CLOUDY AND DARK. PT HAD BM TODAY. PT C/O FEELING MORE EDEMATOUS, DR MELENDREZ AWARE. PT STATES THAT HER RASH IS FEELING MUCH BETTER AND SHE DIDNT HAVE TO USE ANY MEDICATON TO CONTOL THE ITCHING. PT C/O PAIN IN HER KNEES, MEDICATED PER EMAR. PT IS CURRENTLY SLEEPING, CALL LIGHT IN REACH, BED IN LOWEST POSTION, WILL CONTINUE TO MONITOR.
--- NOTE | 2019-12-05 04:37 | NUR ---
END SHIFT SUMMARY NO ACUTE CHANGES NOTED T/O THE NIGHT. PT SLEPT T/O THE NIGHT UNTIL SHE WAS AWOKEN FOR LABS. PT STATES THAT SHE IS NOT FEELING ITCHY AND HER RASH IS DOING BETTER. CALL LIGHT IN REACH, BED IN LOWEST POSTION, WILL CONTINUE TO MONITOR UNTIL DAYSHIFT NURSE ARRIVES.
[2019-12-05 05:35] LABS: Hematocrit 29.4 % (33.0-51.0); Hemoglobin 8.8 g/dL (11.5-16.0); Mean Corpuscular HGB Conc 29.9 g/dL (31.5-36.5); Mean Corpuscular Volume 100 fL (80-100); Mean Platelet Volume 11.4 fL (9.1-12.4); Platelet Count 156 K/mm3 (150-400); RDW Coefficient Variation 15.7 % (11.7-14.2); RDW Standard Deviation 58.2 fL (35.1-46.3); Red Blood Cell Count 2.93 M/mm3 (3.80-5.20); White Blood Cell Count 6.42 K/mm3 (4.00-11.30)
[2019-12-05 05:48] LABS: Albumin, Blood 2.4 g/dL (3.4-5.0); Anion Gap 4 mmol/L (6-16); Blood Urea Nitrogen 54 mg/dL (8-24); Bun/Creatinine Ratio 26.6 (12.0-20.0); CO2, Blood 34 mmol/L (21-32); Calcium, Blood 8.9 mg/dL (8.5-10.1); Chloride, Blood 99 mmol/L (98-108); Creatinine, Blood 2.03 mg/dL (0.40-1.00); Glomerular Filtration Rate 26 (60-); Glucose, Blood 102 mg/dL (70-99); Magnesium, Blood 2.4 mg/dL (1.6-2.4); Phosphorus, Blood 3.8 mg/dL (2.5-4.9); Potassium, Blood 5.1 mmol/L (3.5-5.5); Sodium, Blood 137 mmol/L (136-145)
--- NOTE | 2019-12-05 14:17 | NUR ---
OBTAINED PATIENT PERMISSION STUDENT NURSE OBTAINED VERBAL PERMISSION FROM PATIENT AT 1417 ON 12/05/2019 TO CARE FOR PATIENT ON 12/06/2019.
--- NOTE | 2019-12-05 17:13 | NUR ---
SHIFT SUMMARY PT RESTING QUIETLY AWAKE, DURING SHIFT REPORT. NO C/O. MORBIDLY OBESE, WAITING FOR PLACEMENT. ROMERO TO GRAVITY; PATENT, DRAINING CL YELLOW. DR MELENDREZ IN TO SEE PT AND LATER DR GRIFFITH. PT ASSISTED TO BEDPAN FOR BM. SKIN FOLDS CLEANED AND DRYED. BED LINENS CHANGEDS. PT HAS BEEN PLEASANT AND CL-OP WITH CARE. ABLE TO ASSIST SOME WITH TURNING AND CHANGING. RASH TO UPPER BODY AND DOWN ARMS TO HANDS. MEDICATED PER EMAR. NYSTATIN TO SKIN FOLDS; SOME OPEN AREAS, BUT PER REPORT, MUCH IMPROVED. BLE SKIN, ELEPHANT LIKE THICKNESS. BODY WIDE EDEMA; BUMEX GIVEN PER EMAR. VISITORS TO AT THIS TIME. CALL LT IN REACH.
--- NOTE | 2019-12-06 04:23 | NUR ---
SHIFT SUMMARY A/O, ABLE TO MAKE NEEDS KNOWN. COOPERATIVE WITH CARE. CALLS AND ANSWERS QUESTIONS APPROPRIATELY. C/O PAIN/DISCOMFORT WELL ITCHING ALL OVER; MEDICATED PER EMAR. NYSTATIN PLACED TO ALL FOLDS. CREAM/LOTION APPLIED TO AFFECTED SKIN. DRESSING TO OUTER R THIGH REPLACED; MODERATE DRAINAGE. NO ACUTE CHANGES NOTED OVERNIGHT. APPEARED TO REST MUCH OF SHIFT. BED IN LOWEST POSITION. CALL LIGHT AND BELONGINGS WITHIN REACH. WCTM. REPORT TO ONCOMING RN.
[2019-12-06 05:23] LABS: Hematocrit 27.8 % (33.0-51.0); Hemoglobin 8.5 g/dL (11.5-16.0); Mean Corpuscular HGB 30.7 pg (26.0-34.0); Mean Corpuscular HGB Conc 30.6 g/dL (31.5-36.5); Mean Corpuscular Volume 100 fL (80-100); Mean Platelet Volume 11.1 fL (9.1-12.4); Platelet Count 159 K/mm3 (150-400); RDW Coefficient Variation 15.9 % (11.7-14.2); RDW Standard Deviation 58.9 fL (35.1-46.3); Red Blood Cell Count 2.77 M/mm3 (3.80-5.20); White Blood Cell Count 6.44 K/mm3 (4.00-11.30)
[2019-12-06 05:47] LABS: Magnesium, Blood 2.3 mg/dL (1.6-2.4)
[2019-12-06 05:51] LABS: Albumin, Blood 2.4 g/dL (3.4-5.0); Anion Gap 5 mmol/L (6-16); Blood Urea Nitrogen 53 mg/dL (8-24); Bun/Creatinine Ratio 26.2 (12.0-20.0); CO2, Blood 33 mmol/L (21-32); Calcium, Blood 9.2 mg/dL (8.5-10.1); Chloride, Blood 99 mmol/L (98-108); Creatinine, Blood 2.02 mg/dL (0.40-1.00); Glomerular Filtration Rate 27 (60-); Glucose, Blood 89 mg/dL (70-99); Phosphorus, Blood 3.8 mg/dL (2.5-4.9); Potassium, Blood 4.8 mmol/L (3.5-5.5); Sodium, Blood 137 mmol/L (136-145)
--- NOTE | 2019-12-06 16:34 | NUR ---
SHIFT SUMMARY PT AWAKE AT START OF SHIFT, RESTING QUIETLY WATCHING TV. NO C/O. PT MORBIDLY OBESE IN BARIATRIC BED. ROMERO CATH DUE TO BE CHANGED PER PROTOCOL. SEVERAL STAFF ASSISTED IN REPLACING; NEW ROMERO PATENT AND DRAINING CL YELLOW. ROMERO CATH PLACED FOR RETENTION AND WOUNDS D/T OBESITY. PT STILL UNABLE TO GET OOB AND TO BSC TO VOID. PT WORKING WITH PT/OT. NRS STUDENT HERE TO ASSIST WITH CARE AND GIVEN AM MEDS WITH INSTRUCTOR; PT AGREEABLE. RASH TO UPPER BODY AND ARMS IMPROVED FURTHER SINCE YESTERDAY. MINIMAL ITCHING REPORTED. PT STILL WAITING FOR PLACEMENT; AMBROCIO STAFF HERE THIS AFTERNOON TO ASSESS PT FOR PLACEMENT. PT CONTINENT OF BOWELS AND ABLE TO USE BED BROTHERS. PT ALSO ABLE TO ASSIST WITH TURNING TO GET ON BEDPAN AND FOR LINEN CHANGES. PT ABLE TO OPERATE BARIATRIC BED HERSELF. NO C/O PAIN. DENIED FURTHER NEEDS. CALL LT IN REACH.
--- NOTE | 2019-12-07 04:33 | NUR ---
SHIFT SUMMARY PATIENT HAD NO ACUTE CHANGES OBSERVED. AXOX 3 AND BEDFAST. MORBIDLY OBESE IN BARIATRIC BED, LIFT ROOM. ROMERO PATENT AND DRAINING. IV BENADRYL GIVEN FOR CHEST/NECK RASH AND TOPICAL MEDICATION PER EMAR. REPORTS RASH IS IMPROVING. VSS/AFEBRILE. DENIES PAIN, SOB, AND N/V. PIV REMAINS INTACT. FLUID RESTRICTION 1,500 mL. CALL LIGHT IN REACH. BED IN LOWEST POSITION. WILL CONTINUE TO MONITOR UNTIL DAY SHIFT NURSE ASSUMES CARE.
[2019-12-07 05:50] LABS: Hematocrit 28.3 % (33.0-51.0); Hemoglobin 8.5 g/dL (11.5-16.0); Mean Corpuscular HGB 30.7 pg (26.0-34.0); Mean Corpuscular Volume 102 fL (80-100); Mean Platelet Volume 11.1 fL (9.1-12.4); Platelet Count 150 K/mm3 (150-400); RDW Coefficient Variation 15.9 % (11.7-14.2); RDW Standard Deviation 59.8 fL (35.1-46.3); Red Blood Cell Count 2.77 M/mm3 (3.80-5.20); White Blood Cell Count 6.15 K/mm3 (4.00-11.30)
[2019-12-07 06:00] LABS: Albumin, Blood 2.4 g/dL (3.4-5.0); Anion Gap 5 mmol/L (6-16); Blood Urea Nitrogen 50 mg/dL (8-24); Bun/Creatinine Ratio 25.9 (12.0-20.0); CO2, Blood 32 mmol/L (21-32); Chloride, Blood 100 mmol/L (98-108); Creatinine, Blood 1.93 mg/dL (0.40-1.00); Glomerular Filtration Rate 28 (60-); Glucose, Blood 87 mg/dL (70-99); Magnesium, Blood 2.3 mg/dL (1.6-2.4); Phosphorus, Blood 3.7 mg/dL (2.5-4.9); Potassium, Blood 4.7 mmol/L (3.5-5.5); Sodium, Blood 137 mmol/L (136-145)
--- NOTE | 2019-12-07 18:33 | NUR ---
NO ACUTE CHANGES TO PT. CALL LIGHT WITHIN REACH.
--- NOTE | 2019-12-08 04:32 | NUR ---
SHIFT SUMMARY: VSS. AFEB. SKIN WARM AND DRY. A/OX4. COMMUNICATES NEEDS. RASH MUCH IMPROVED. NO LONGER VISIBLE. PT STATES IT STILL ITCHES SOME. CREAMS APPLIED ORDERED AND PRN BENADRYL ADMINISTERED. SLEPT WELL, NO ACUTE CHANGES OVERNIGHT. WILL CONT TO MONITOR.
[2019-12-08 05:23] LABS: BASOPHILS ABSOLUTE AUTO 0.03 K/mm3 (0.00-0.23); BASOPHILS PERCENT AUTO 0 % (0-2); EOSINOPHILS PERCENT AUTO 4 % (0-6); Hemoglobin 8.7 g/dL (11.5-16.0); IMMATURE GRAN ABSOLUTE AUTO 0.04 K/mm3 (0.00-0.10); IMMATURE GRAN PERCENT AUTO 1 % (0-1); LYMPHOCYTES ABSOLUTE AUTO 0.87 K/mm3 (0.84-5.20); LYMPHOCYTES PERCENT AUTO 13 % (21-46); MONOCYTES ABSOLUTE AUTO 0.69 K/mm3 (0.16-1.47); MONOCYTES PERCENT AUTO 10 % (4-13); Mean Corpuscular HGB 30.1 pg (26.0-34.0); Mean Corpuscular Volume 100 fL (80-100); Mean Platelet Volume 10.9 fL (9.1-12.4); NEUTROPHILS ABSOLUTE AUTO 4.83 K/mm3 (1.96-9.15); NEUTROPHILS PERCENT AUTO 72 % (41-73); Platelet Count 151 K/mm3 (150-400); RDW Coefficient Variation 15.8 % (11.7-14.2); RDW Standard Deviation 58.4 fL (35.1-46.3); Red Blood Cell Count 2.89 M/mm3 (3.80-5.20); White Blood Cell Count 6.76 K/mm3 (4.00-11.30)
[2019-12-08 05:51] LABS: Magnesium, Blood 2.3 mg/dL (1.6-2.4)
[2019-12-08 05:53] LABS: Albumin, Blood 2.5 g/dL (3.4-5.0); Anion Gap 4 mmol/L (6-16); Blood Urea Nitrogen 50 mg/dL (8-24); Bun/Creatinine Ratio 27.5 (12.0-20.0); CO2, Blood 34 mmol/L (21-32); Calcium, Blood 8.9 mg/dL (8.5-10.1); Chloride, Blood 99 mmol/L (98-108); Creatinine, Blood 1.82 mg/dL (0.40-1.00); Glomerular Filtration Rate 30 (60-); Glucose, Blood 86 mg/dL (70-99); Phosphorus, Blood 3.8 mg/dL (2.5-4.9); Potassium, Blood 4.5 mmol/L (3.5-5.5); Sodium, Blood 137 mmol/L (136-145)
--- NOTE | 2019-12-08 17:12 | NUR ---
NO ACUTE CHANGES THIS SHIFT. AWAITING PLACEMENT. ROMERO TO GRAVITY. PATIENT ABLE TO ASSIST WITH TURNING AND REPOSITIONING. CALM AND COOPERATIVE WITH CARE. RASH TO CHEST AND NECK NEARLY HEALED. TOLERATING DIET AND COMPLIANT WITH 1.5L FLUIDS RESTRITION.
[2019-12-09 05:16] LABS: Hematocrit 28.5 % (33.0-51.0); Hemoglobin 8.7 g/dL (11.5-16.0)
--- NOTE | 2019-12-09 05:44 | NUR ---
SHIFT SUMMARY: VSS. AFEB. A/OX4. COMMUNICATES NEEDS. SLEPT THROUGH THE NIGHT. STATES RASH IS NEARLY GONE. NO ACUTE CHANGES. WILL CONT TO MONITOR.
[2019-12-09 05:57] LABS: Albumin, Blood 2.4 g/dL (3.4-5.0); Anion Gap 4 mmol/L (6-16); Blood Urea Nitrogen 49 mg/dL (8-24); Bun/Creatinine Ratio 26.5 (12.0-20.0); CO2, Blood 34 mmol/L (21-32); Calcium, Blood 8.9 mg/dL (8.5-10.1); Chloride, Blood 100 mmol/L (98-108); Creatinine, Blood 1.85 mg/dL (0.40-1.00); Glomerular Filtration Rate 29 (60-); Glucose, Blood 87 mg/dL (70-99); Magnesium, Blood 2.3 mg/dL (1.6-2.4); Potassium, Blood 4.3 mmol/L (3.5-5.5); Sodium, Blood 138 mmol/L (136-145)
--- NOTE | 2019-12-09 18:29 | NUR ---
NO ACUTE CHANGES THIS SHIFT. PATIENT ABLE TO VOICE NEEDS AND ASSIST WITH SOME OF HER SELF CARE. NO IV SITE IN PLACE. ORDER RECEIVED TO DO VS DAILY AND PRN. PATIENT AWAITING PLACEMENT.
--- NOTE | 2019-12-10 03:26 | NUR ---
SHIFT SUMMARY PATIENT HAD NO ACUTE CHANGES OBSERVED THIS SHIFT. AXO X4 AND BEDFAST. ON 3L O2 NC BASELINE. NO IV ACCESS. VSS/AFEBRILE. DENIES PAIN, SOB, AND N/V. PO BENADRYL GIVEN FOR CHEST/BACK RASH PER EMAR. TOPICAL ONTIMENTS APPLIED TO RASH PER EMAR. ROMERO PATENT AND DRAINING. COOPERATIVE WITH CARE. CALL LIGHT IN REACH. BED IN LOWEST POSITION. WILL CONTINUE TO MONITOR UNTIL DAY SHIFT NURSE ASSUMES CARE.
[2019-12-10 05:01] LABS: Hematocrit 29.1 % (33.0-51.0); Hemoglobin 8.7 g/dL (11.5-16.0)
[2019-12-10 05:17] LABS: Albumin, Blood 2.3 g/dL (3.4-5.0); Anion Gap 5 mmol/L (6-16); Blood Urea Nitrogen 47 mg/dL (8-24); CO2, Blood 33 mmol/L (21-32); Calcium, Blood 8.7 mg/dL (8.5-10.1); Chloride, Blood 101 mmol/L (98-108); Creatinine, Blood 1.74 mg/dL (0.40-1.00); Glomerular Filtration Rate 32 (60-); Glucose, Blood 85 mg/dL (70-99); Magnesium, Blood 2.1 mg/dL (1.6-2.4); Phosphorus, Blood 3.3 mg/dL (2.5-4.9); Potassium, Blood 4.3 mmol/L (3.5-5.5); Sodium, Blood 139 mmol/L (136-145)
--- NOTE | 2019-12-10 17:16 | NUR ---
When another environmental conservation professor and i were going into the pt's room for a bedbath we noticed urine on the floor almost pooling out to the hallway, housekeeping was notifed, and they cleaned up the urine. Unmeasured void. Looking at the nath bag there was probably 500 cc still in the bag. SURGICAL COORDINATOR will empty nath before end of shift.
--- NOTE | 2019-12-10 18:05 | NUR ---
PT HAS VAGINAL BLEEDING. HUGH BLOOD PRESENT. NO PAIN NOTED BY PATIENT. HEPARIN STOPPED. WILL CONTINUE TO MONITOR.
--- NOTE | 2019-12-11 03:39 | NUR ---
SHIFT SUMMARY PATIENT HAD NO ACUTE CHANGES. AXOX 3 AND BEDREST. NO IV ACCESS. ON 3L O2 NC. DENIES PAIN, SOB, AND N/V. VSS/AFEBRILE. PO BENADRYL GIVEN AND TOPICAL OINTMENTS APPLIED FOR CHEST/BACK RASH. ROMERO PATENT AND DRAINING. COOPERATIVE WITH CARE. CALL LIGHT IN REACH. BED IN LOWEST POSITION. WILL CONTINUE TO MONITOR UNTIL DAY SHIFT NURSE ASSUMES CARE.
[2019-12-11 05:18] LABS: Hemoglobin 8.8 g/dL (11.5-16.0)
[2019-12-11 05:42] LABS: Albumin, Blood 2.3 g/dL (3.4-5.0); Anion Gap 3 mmol/L (6-16); Blood Urea Nitrogen 43 mg/dL (8-24); CO2, Blood 36 mmol/L (21-32); Calcium, Blood 8.7 mg/dL (8.5-10.1); Chloride, Blood 100 mmol/L (98-108); Creatinine, Blood 1.59 mg/dL (0.40-1.00); Glomerular Filtration Rate 35 (60-); Glucose, Blood 87 mg/dL (70-99); Magnesium, Blood 2.1 mg/dL (1.6-2.4); Phosphorus, Blood 3.3 mg/dL (2.5-4.9); Potassium, Blood 4.1 mmol/L (3.5-5.5); Sodium, Blood 139 mmol/L (136-145)
--- NOTE | 2019-12-11 17:16 | NUR ---
PATIENT STILL BLEEDING FROM VAGINA . HUGH BLOOD . PATIENT AWARE AND DID NOT ULTRA SOUND OF VAGINA. NO DISTRESS NOTED.
--- NOTE | 2019-12-12 03:15 | NUR ---
SHIFT SUMMARY PATIENT HAD NO ACUTE CHANGES OBSERVED. AXOX 3 AND BEDFAST. ON 3L O2 NC BASELINE. NO IV ACCESS. PO BENADRYL GIVEN FOR RASH AND NYSTATIN POWDER APPLIED TO SKIN FOLDS PER PATIENT. ROMERO PATENT AND DRAINING. VSS/AFEBRILE. DENIES SOB AND N/V. TYLENOL X ONE FOR KNEE PAIN. COOPERATIVE WITH CARE. CALL LIGHT IN REACH. BED IN LOWEST POSITION. WILL CONTINUE TO MONITOR UNTIL DAY SHIFT NURSE ASSUMES CARE.
[2019-12-12 05:33] LABS: Hemoglobin 9.8 g/dL (11.5-16.0)
[2019-12-12 05:44] LABS: Albumin, Blood 2.3 g/dL (3.4-5.0); Anion Gap 6 mmol/L (6-16); Blood Urea Nitrogen 40 mg/dL (8-24); Bun/Creatinine Ratio 26.3 (12.0-20.0); CO2, Blood 32 mmol/L (21-32); Calcium, Blood 8.7 mg/dL (8.5-10.1); Chloride, Blood 101 mmol/L (98-108); Creatinine, Blood 1.52 mg/dL (0.40-1.00); Glomerular Filtration Rate 37 (60-); Glucose, Blood 95 mg/dL (70-99); Phosphorus, Blood 3.3 mg/dL (2.5-4.9); Potassium, Blood 4.2 mmol/L (3.5-5.5); Sodium, Blood 139 mmol/L (136-145)
--- NOTE | 2019-12-12 12:04 | NUR ---
12/12/2019 Patient gave permission for this assistant dean of students to assist in care tomorrow 12/13/2019.
--- NOTE | 2019-12-12 16:20 | NUR ---
Pal care clinical visit: Supportive visit made. Pt is brighter in affect today than on my previous visits. She is very happy about her weight being <500 pounds as of today and is most happy about feeling like she is making progress with PT/OT and getting stronger. She verbalizes several times desire to walk again and return to a home setting. She told me about vaginal bleeding that has occured in past couple of days and that she believes it has stopped now. She reports she has not had any intermittent bleeding or regular menses for over 15 years. When asked about declining a gynocological eval she stated if the bleeding were to continue she would definitely want to "deal with it" and see a belt knife feeder. She states she just wanted to see if it would go away on it's own and hoped it would. We discussed her family and wishes to stay in a facility locally to be near them. She had met with MASON Denny and is thrilled Denisha will be contacting facilities again for possible placement for rehab. Pt denies pain. She reports rash and itching are much better and that it is primarily on her back and neck now and not on trunk, chest and arms any longer. She is very motivated and wants to keep rehab momentum going. Further Pal Care visits to be made as indicated. Pt enjoyed visit from our volunteer today and stated April came along at the perfect moment when she was feeling the need to talk to someone and get some things off her chest. Pt is very complimentary of nursing, PT/OT care she is receiving.
--- NOTE | 2019-12-12 16:39 | NUR ---
SHIFT SUMMARY PT AXO, PLEASANT AND COOPERATIVE WITH CARE. VSS. PT 98% ON 3L VIA NC. NURSE ASSESSED VAGINAL BLEEDING X2 THIS SHIFT. AT START OF SHIFT, PT HAD SMALL AMOUNT OF DRIED BLOOD IN FOLDS AROUND VAGINA. PT STATES THAT SHE THINKS THE BLEEDING IS STOPPING AND THAT THIS IS LESS BLEEDING THAN WHAT IT HAS BEEN. THIS AFTERNOON THERE WAS ABOUT A 2CM ROUND SPOT OF BLOOD ON PAD. DR AWARE OF BLEEDING. PT WEIGHED THIS SHIFT, 225.7KG. NO OTHER CHANGES THIS SHIFT. BED IN LOW POSITION, CALL LIGHT WITHIN REACH.
--- NOTE | 2019-12-13 05:33 | NUR ---
12/13/19 0515 PT ON SPECIAL AIR BED. AWAKENED FOR AM MED AND DAILY WT. PT VERY POSITIVE ABOUT WEIGHT LOSS AND INCREASING HER BED EXERCISES. CREAMS APPLIED TO UPPER BACK AND SHOULDERS PER C/O ITCHING. ROMERO PATENT AND DRAINING WELL. PT AWARE OF FLUID RESTRICTIONS AND COMPLIANT.
[2019-12-13 05:45] LABS: Hematocrit 30.9 % (33.0-51.0); Hemoglobin 9.5 g/dL (11.5-16.0)
[2019-12-13 06:08] LABS: Albumin, Blood 2.3 g/dL (3.4-5.0); Anion Gap 4 mmol/L (6-16); Blood Urea Nitrogen 36 mg/dL (8-24); Bun/Creatinine Ratio 23.8 (12.0-20.0); CO2, Blood 35 mmol/L (21-32); Chloride, Blood 99 mmol/L (98-108); Creatinine, Blood 1.51 mg/dL (0.40-1.00); Glomerular Filtration Rate 37 (60-); Glucose, Blood 100 mg/dL (70-99); Magnesium, Blood 1.9 mg/dL (1.6-2.4); Phosphorus, Blood 3.1 mg/dL (2.5-4.9); Sodium, Blood 138 mmol/L (136-145)
--- NOTE | 2019-12-13 18:26 | NUR ---
SHIFT SUMMARY PT REPOSITIONS SELF IN BED IN SMALL INCREMENTS. POWDER APPLIED TO FOLDS SOME OF WHICH BLEED WITH CLEANSING. REPORTED INCREASED COUGH AND THEN HEADACHE THIS EVENING. STATES SHE DOESN'T FEEL WELL NORMAL.
--- NOTE | 2019-12-14 01:06 | NUR ---
BEGINNING SHIFT SUMMARY ASSUMED CARE OF PT AT 1900. PT IS ALERT AND ORIENTED X4. PT IS EXCITED ABOUT LOOSING WT AND IS EXCITED ABOUT BEING ABLE TO STAY LOCALLY FOR REHAB. HEART SOUNDS REGULAR. LUNG SOUNDS DIMINISHED, PT C/O COUGH, MEDICATED PER EMAR, ON 2L O2 AT BASELINE AND NASAL CANNULA. PT HAS REDNESS AND SKIN TEARS IN HER SKIN FOLDS, PT CLEANED, DRIED, AND POWER APPLIED. PT IS LIFT STATUS. CATHETER DRAINING CLOUDY YELLOW URINE. CALL LIGHT IN REACH, BED IN LOWEST POSTION, WILL CONTINUE TO MONITOR.
--- NOTE | 2019-12-14 04:56 | NUR ---
END SHIFT SUMMARY NO ACUTE CHANGES NOTED T/O THE NIGHT. PT WAS UPSET WHEN GETTING WEIGHED THIS MORNING, STATING THAT THE CNAS WERE DOING IT WRONG AND SHE WEIGHED LESS YESTERDAY. PT C/O ITCHING, MEDICATED PER EMAR. PT COUGHED T/O THE NIGHT. CALL LIGHT IN REACH, BED IN LOWEST POSITION, WILL CONTINUE TO MONITOR UNTIL DAYSHIFT NURSE ARRIVES.
[2019-12-14 05:50] LABS: Hematocrit 29.3 % (33.0-51.0)
[2019-12-14 06:18] LABS: Albumin, Blood 2.2 g/dL (3.4-5.0); Anion Gap 5 mmol/L (6-16); Blood Urea Nitrogen 33 mg/dL (8-24); Bun/Creatinine Ratio 21.2 (12.0-20.0); CO2, Blood 34 mmol/L (21-32); Calcium, Blood 8.7 mg/dL (8.5-10.1); Chloride, Blood 97 mmol/L (98-108); Creatinine, Blood 1.56 mg/dL (0.40-1.00); Glomerular Filtration Rate 36 (60-); Glucose, Blood 100 mg/dL (70-99); Magnesium, Blood 1.9 mg/dL (1.6-2.4); Phosphorus, Blood 2.9 mg/dL (2.5-4.9); Sodium, Blood 136 mmol/L (136-145)
--- NOTE | 2019-12-14 15:07 | NUR ---
patient needs the nath due to open wounds in the groin area that will be adversly effected it it is removed.
--- NOTE | 2019-12-14 18:44 | NUR ---
SHIFT SUMMARY PAIN HAS BEEN MANAGED WITH TYLENOL. PT COMPLAINS OF COUGH AND SORE THROAT. VSS. NO CHANGES TO REPORT. AWAITING PLACEMENT.
--- NOTE | 2019-12-14 23:17 | NUR ---
BEGINNING SHIFT SUMMARY ASSUMED CARE OF PT AT 1900. PT IS ALERT AND ORIENTED X4, DENIES N/T AT THIS TIME. PT C/O COUGHING, MEDICATED PER EMAR, COURSE CRACKLES T/O LUNG FEILDS, PT IS ON 3L O2, THIS IS HER BASELINE AT HOME, RT CONSULTED WITH CARE. HEART SOUNDS REGULAR. PT STATES THAT HER LEG WOUND IS NOT WEEPING MUCH. CATHETER DRAINING DARK CLOUDY URINE. CALL LIGHT IN REACH, BED IN LOWEST POSTION, WILL CONTINUE TO MONITOR.
--- NOTE | 2019-12-15 04:21 | NUR ---
END SHIFT SUMMARY NO ACUTE CHANGES NOTED T/O THE NIGHT. PT SLEPT MOST OF THE NIGHT EXCEPT FOR WHEN SHE COUGHED. PT VOICE SOUNDS RASPY DUE TO COUGHING. PT STATES THAT SHE FEELS OK. CALL LIGHT IN REACH, BED IN LOWEST POSTION, WILL CONTINUE TO MONITOR UNTIL DAYSHIFT NURSE ARRIVES.
--- NOTE | 2019-12-15 13:41 | NUR ---
ASSUMED CARE OF PATIENT FROM JS BRAVO RN. AGREE WITH PREVIOUS PATIENT REGISTRATION MANAGER AT THIS TIME. PATIENT REPORTS FEELING MUCH BETTER. SHE DOES NOT SOUND CONGESTED IT WAS REPORTED BEING THIS AM. PATIENT CONTINUING TO USE I.S. AND FLUTTER VALVE REGULARLY. PATIENT RESTING NOW AT THIS TIME. NO COMPLAINTS REPORTED.
--- NOTE | 2019-12-15 15:07 | NUR ---
PATIENT ASSISTING WITH TURNS/REPOSITIONING. VERY COOP WITH CARE. SITS FORWARD AND PULLS SELF FROM SIDE TO SIDE. REQUIRING 2 NURSES ONLY TO ASSIST AT THIS TIME.
--- NOTE | 2019-12-15 17:00 | NUR ---
SHIFT SUMMARY NO ACUTE CHANGES. PATIENT ASSISTING WITH TURNING IN BED WITH MAX OF 2 STAFF MEMBERS. SHE DOES VERY WELL WITH THIS. BUMEX INCREASED FOR THE NEXT 2 DAYS AND THEN RETURNED TO 2 MG AFTER THAT. AWAITING PLACEMENT WHICH IS MORE OF A POSSIBILITY FOR HER AT THIS POINT TO DUE HER LARGE AMT OF WEIGHT LOSS DURING THIS STAY. SHE REPORTS HER CONGESTION AND MUCOUS HAVE IMPROVED SINCE THIS AM.
--- NOTE | 2019-12-16 04:48 | NUR ---
SHIFT SUMMARY NO NEW ISSUES NOTED. PT IS EAGER TO GO TO REHAB. PT REQUIRED ONLY ONE PERSON ASSIST WITH CARE. PT REMAINS A LIFT PT. PT ABLE TO REPOSITION SELF IN BED WITH MINIMAL ASSITANCE. PT SKIN ISSUES APPEAR TO BE IMPROVING. PT HAS BEEN ABLE TO SLEEP OFF AND ON T/O SHIFT. .
[2019-12-16 05:05] LABS: BASOPHILS ABSOLUTE AUTO 0.01 K/mm3 (0.00-0.23); BASOPHILS PERCENT AUTO 0 % (0-2); EOSINOPHILS ABSOLUTE AUTO 0.07 K/mm3 (0.00-0.68); EOSINOPHILS PERCENT AUTO 1 % (0-6); Hemoglobin 8.9 g/dL (11.5-16.0); IMMATURE GRAN ABSOLUTE AUTO 0.03 K/mm3 (0.00-0.10); IMMATURE GRAN PERCENT AUTO 0 % (0-1); LYMPHOCYTES PERCENT AUTO 9 % (21-46); MONOCYTES ABSOLUTE AUTO 0.61 K/mm3 (0.16-1.47); MONOCYTES PERCENT AUTO 8 % (4-13); Mean Corpuscular HGB 30.6 pg (26.0-34.0); Mean Corpuscular HGB Conc 30.7 g/dL (31.5-36.5); Mean Corpuscular Volume 100 fL (80-100); Mean Platelet Volume 11.9 fL (9.1-12.4); NEUTROPHILS ABSOLUTE AUTO 6.75 K/mm3 (1.96-9.15); NEUTROPHILS PERCENT AUTO 83 % (41-73); Platelet Count 122 K/mm3 (150-400); RDW Coefficient Variation 15.9 % (11.7-14.2); RDW Standard Deviation 58.4 fL (35.1-46.3); Red Blood Cell Count 2.91 M/mm3 (3.80-5.20); White Blood Cell Count 8.17 K/mm3 (4.00-11.30)
[2019-12-16 05:38] LABS: Albumin, Blood 2.2 g/dL (3.4-5.0); Albumin/Globulin Ratio 0.5 (0.8-1.8); Bilirubin, Total 0.7 mg/dL (0.1-1.0); Bun/Creatinine Ratio 20.4 (12.0-20.0); Calcium, Blood 8.7 mg/dL (8.5-10.1); Creatinine, Blood 1.52 mg/dL (0.40-1.00); Globulin, Blood 4.3 g/dL (2.2-4.0); Potassium, Blood 4.1 mmol/L (3.5-5.5); Total Protein, Blood 6.5 g/dL (6.4-8.2)
[2019-12-16 17:31] LABS: Influenza A/H1 Detected (NOT DETECT)
[2019-12-16 17:32] LABS: Adenovirus Not Detected (NOT DETECT); Bordetella pertussis Not Detected (NOT DETECT); Chlamydophila pneumoniae Not Detected (NOT DETECT); Coronavirus 229E Not Detected (NOT DETECT); Coronavirus HKU1 Not Detected (NOT DETECT); Coronavirus NL63 Not Detected (NOT DETECT); Coronavirus OC43 Not Detected (NOT DETECT); Human Metapneumovirus Not Detected (NOT DETECT); Human Rhinovirus/Enterovirus Not Detected (NOT DETECT); Influenza A Not Detected (NOT DETECT); Influenza A/2009-H1 Not Detected (NOT DETECT); Influenza A/H3 Not Detected (NOT DETECT); Influenza B Not Detected (NOT DETECT); Mycoplasma pneumoniae Not Detected (NOT DETECT); Parainfluenza Virus 1 Not Detected (NOT DETECT); Parainfluenza Virus 2 Not Detected (NOT DETECT); Parainfluenza Virus 3 Not Detected (NOT DETECT); Parainfluenza Virus 4 Not Detected (NOT DETECT); Respiratory Syncytial Virus Not Detected (NOT DETECT)
[2019-12-17 05:19] LABS: BASOPHILS PERCENT AUTO 0 % (0-2); EOSINOPHILS PERCENT AUTO 0 % (0-6); Hematocrit 30.3 % (33.0-51.0); Hemoglobin 9.5 g/dL (11.5-16.0); IMMATURE GRAN ABSOLUTE AUTO 0.03 K/mm3 (0.00-0.10); IMMATURE GRAN PERCENT AUTO 0 % (0-1); LYMPHOCYTES ABSOLUTE AUTO 0.45 K/mm3 (0.84-5.20); LYMPHOCYTES PERCENT AUTO 6 % (21-46); MONOCYTES ABSOLUTE AUTO 0.19 K/mm3 (0.16-1.47); MONOCYTES PERCENT AUTO 2 % (4-13); Mean Corpuscular HGB Conc 31.4 g/dL (31.5-36.5); Mean Corpuscular Volume 99 fL (80-100); Mean Platelet Volume 11.8 fL (9.1-12.4); NEUTROPHILS ABSOLUTE AUTO 7.22 K/mm3 (1.96-9.15); NEUTROPHILS PERCENT AUTO 92 % (41-73); Platelet Count 134 K/mm3 (150-400); RDW Coefficient Variation 15.7 % (11.7-14.2); RDW Standard Deviation 57.4 fL (35.1-46.3); Red Blood Cell Count 3.06 M/mm3 (3.80-5.20); White Blood Cell Count 7.89 K/mm3 (4.00-11.30)
[2019-12-17 05:42] LABS: Albumin, Blood 2.2 g/dL (3.4-5.0); Albumin/Globulin Ratio 0.5 (0.8-1.8); Bilirubin, Total 0.5 mg/dL (0.1-1.0); Bun/Creatinine Ratio 23.6 (12.0-20.0); Calcium, Blood 8.5 mg/dL (8.5-10.1); Creatinine, Blood 1.44 mg/dL (0.40-1.00); Globulin, Blood 4.5 g/dL (2.2-4.0); Potassium, Blood 4.5 mmol/L (3.5-5.5); Total Protein, Blood 6.7 g/dL (6.4-8.2)
--- NOTE | 2019-12-17 07:47 | NUR ---
SHIFT SUMMARY: PATIENT IS A&OX4, REPORTING HEAD AND THROAT PAIN, TYLENOL WAS GIVEN WITH GOOD EFFECT. 1600ML OF URINE OUT OF ROMERO. PATIENT IS COMPLIANT WITH 1200 ML FLUID RESRICTION. RESPIRATORY PANEL IS POSSITIVE FOR FLU A. PATIENT IS NOW IN DROPLET PRECAUTIONS.
--- NOTE | 2019-12-17 17:17 | NUR ---
shift summary no acute concerns at this time. the patient is pleasant and alert and oriented. she is doing well. still working on fluid restriction. patient has taken all her meds. she had a partial bedbath at this time.
--- NOTE | 2019-12-18 02:19 | NUR ---
IV ACCESS: 18 GAUGE IV SITE WAS PRESENT AT START OF SHIFT
[2019-12-18 05:37] LABS: BASOPHILS ABSOLUTE AUTO 0.01 K/mm3 (0.00-0.23); BASOPHILS PERCENT AUTO 0 % (0-2); EOSINOPHILS ABSOLUTE AUTO 0.01 K/mm3 (0.00-0.68); EOSINOPHILS PERCENT AUTO 0 % (0-6); Hematocrit 34.3 % (33.0-51.0); Hemoglobin 10.5 g/dL (11.5-16.0); IMMATURE GRAN ABSOLUTE AUTO 0.03 K/mm3 (0.00-0.10); IMMATURE GRAN PERCENT AUTO 0 % (0-1); LYMPHOCYTES ABSOLUTE AUTO 0.51 K/mm3 (0.84-5.20); LYMPHOCYTES PERCENT AUTO 7 % (21-46); MONOCYTES ABSOLUTE AUTO 0.27 K/mm3 (0.16-1.47); MONOCYTES PERCENT AUTO 4 % (4-13); Mean Corpuscular HGB 31.2 pg (26.0-34.0); Mean Corpuscular HGB Conc 30.6 g/dL (31.5-36.5); NEUTROPHILS ABSOLUTE AUTO 6.08 K/mm3 (1.96-9.15); NEUTROPHILS PERCENT AUTO 88 % (41-73); RDW Coefficient Variation 15.3 % (11.7-14.2); Red Blood Cell Count 3.37 M/mm3 (3.80-5.20); White Blood Cell Count 6.91 K/mm3 (4.00-11.30)
[2019-12-18 05:47] LABS: Mean Corpuscular Volume 102 fL (80-100); Mean Platelet Volume 12.4 fL (9.1-12.4); Platelet Count 110 K/mm3 (150-400)
[2019-12-18 06:14] LABS: Albumin, Blood 2.5 g/dL (3.4-5.0); Albumin/Globulin Ratio 0.6 (0.8-1.8); Bilirubin, Total 0.5 mg/dL (0.1-1.0); Bun/Creatinine Ratio 24.2 (12.0-20.0); Calcium, Blood 8.5 mg/dL (8.5-10.1); Creatinine, Blood 1.53 mg/dL (0.40-1.00); Globulin, Blood 4.5 g/dL (2.2-4.0); Potassium, Blood 4.4 mmol/L (3.5-5.5)
--- NOTE | 2019-12-18 08:18 | NUR ---
SHIFT SUMMARY: PATIENT IS A&OX4, REPORTING HEAD ACHE AND SORE THROAT AND WAS GIVEN TYLENOL AND TESSELON PEARLS WITH GOOD EFFECT. APPROXIMATELY 2 LB WT LOSS OBSERVED FROM YESTERDAY. VS ARE STABLE, 3L NC IS ON ABLE TO MAINTAIN SATS IN MID 90'S. PATIENT REMAINS IN CONTACT/ DROPLET PRECAUTIONS.
--- NOTE | 2019-12-18 15:36 | NUR ---
SHIFT SUMMARY PT IS A/O X 4 WITH C/O GENERAL PAIN X 1 AND TYLENOL WAS GIVEN ORDERED. PT CONTINUES ON DROPLET FOR FLU AND DOES HAVE A COUGH BUT IT IS NON-PRODUCTIVE SO SPUTUM SAMPLE IS STILL PENDING. ROMERO IS PATENT WITH CLEAR YELLOW URINE. PT USES BEDPAN FOR BM. PT HAS ONGOING RESNESS TO SKIN FOLDS AND NYSTATIN APPLIED ORDERED. PT HAS BEEN AFEBRILE THIS SHIFT AND REPORTS FEELING MUCH BETTER. PT IS VERY PLEASANT AND COOPERATIVE WITH HER CARE. SHE IS ABLE TO MAKE HER NEEDS KNOWN AND CALLS FOR HELP WHEN NEEDED. CALL LIGHT IN REACH.
--- NOTE | 2019-12-19 03:38 | NUR ---
SHIFT SUMMARY: PATIENT TOTAL INTAKE THIS SHIFT 980, PATIENT VSS, MOBILE IN BED, IV SITE PATENT. NO ISSUES THIS SHIFT, BED LOW AND LOCKED, SKIN CARE COMPLETED, CALL LIGHT WITHIN REACH
--- NOTE | 2019-12-19 18:28 | NUR ---
PATIENT IS ALERT AND ORIENTED AND COOPERATIVE WITH CARE. ON 3L O2 VIA NC. MAKES HER NEEDS KNOWN. PATIENT HAD A BEDBATH TODAY. SHE HAD A BM TODAY USING THE BEDPAN. CHRONIC ROMERO IN PLACE. SPUTUM SAMPLE COLLECTED TODAY. PATIENT MOVES AROUND IN BED WELL. WILL CONTINUE TO MONITOR.
--- NOTE | 2019-12-20 05:17 | NUR ---
SHIFT SUMMARY NO ACUTE CHANGES THIS SHIFT. AOX4. VSS. DENIES N/V, DYSPNEA. LUNGS ARE WHEEZY TO AUSCULTATION, E/U RESPIRATIONS, SPO2 >90% ON RA. REPORTS MILD PAIN ALLOVER ALONG W/HEADACHE, PAIN RELIEVED W/TYLENOL PER ORDERS. HEATHER IS PATENT & DRAINING. FOLDS CLEANED & NYSTATIN APPLIED. CALL LIGHT IN REACH. WCTM.
[2019-12-20 05:38] LABS: BASOPHILS PERCENT AUTO 0 % (0-2); EOSINOPHILS PERCENT AUTO 0 % (0-6); Hematocrit 32.5 % (33.0-51.0); Hemoglobin 10.1 g/dL (11.5-16.0); IMMATURE GRAN ABSOLUTE AUTO 0.07 K/mm3 (0.00-0.10); IMMATURE GRAN PERCENT AUTO 1 % (0-1); LYMPHOCYTES ABSOLUTE AUTO 0.65 K/mm3 (0.84-5.20); LYMPHOCYTES PERCENT AUTO 10 % (21-46); MONOCYTES ABSOLUTE AUTO 0.32 K/mm3 (0.16-1.47); MONOCYTES PERCENT AUTO 5 % (4-13); Mean Corpuscular HGB 30.9 pg (26.0-34.0); Mean Corpuscular HGB Conc 31.1 g/dL (31.5-36.5); Mean Platelet Volume 11.2 fL (9.1-12.4); NEUTROPHILS ABSOLUTE AUTO 5.46 K/mm3 (1.96-9.15); NEUTROPHILS PERCENT AUTO 84 % (41-73); Platelet Count 154 K/mm3 (150-400); RDW Coefficient Variation 15.1 % (11.7-14.2); RDW Standard Deviation 55.4 fL (35.1-46.3); Red Blood Cell Count 3.27 M/mm3 (3.80-5.20)
[2019-12-20 05:43] LABS: Mean Corpuscular Volume 99 fL (80-100)
[2019-12-20 06:02] LABS: Albumin, Blood 2.4 g/dL (3.4-5.0); Anion Gap 3 mmol/L (6-16); Blood Urea Nitrogen 43 mg/dL (8-24); Bun/Creatinine Ratio 30.5 (12.0-20.0); CO2, Blood 36 mmol/L (21-32); Calcium, Blood 8.5 mg/dL (8.5-10.1); Chloride, Blood 96 mmol/L (98-108); Creatinine, Blood 1.41 mg/dL (0.40-1.00); Glomerular Filtration Rate 40 (60-); Glucose, Blood 142 mg/dL (70-99); Magnesium, Blood 2.1 mg/dL (1.6-2.4); Potassium, Blood 4.4 mmol/L (3.5-5.5); Sodium, Blood 135 mmol/L (136-145)
--- NOTE | 2019-12-20 15:05 | NUR ---
I WAS ABLE TO ASSIST PATIENT ON THE BED BROTHERS BY MYSELF, AND IT TOOK TWO CNAS TO GET HER OFF THE BED BROTHERS, AND CLEANED UP. WELL A TWO PERSON TRANSFER WITH A LIFT TO GET HER SITTING UP IN A CHAIR.
--- NOTE | 2019-12-20 15:20 | NUR ---
PATIENT IS A TWO ASSIST WITH BED BATH PT CAN HOLD HERSELF OVER ON EDGE OF BED DURING BATHS. SHE IS A ONE ASSIST TO PUT ON BEDPAN. PT IS QUITE ABLE TO HOIST HERSELF OVER TO HER SIDE WITH ONE ASSISTING IN THE START OF THE MOVEMENT OVER.
--- NOTE | 2019-12-20 18:12 | NUR ---
NO ACUTE CHANGES. PT REQUIRES ONLY 2 ASSIST WITH TURNING SHE IS ABLE TO HOIST HERSELF TO EITHER SIDE OF BED. ONE ASSIST NEEDED TO GET TO BED BROTHERS. PT IS FRIENDLY AND COOPERATIVE WITH ALL CARES. CALL LIGHT WITHIN REACH.
--- NOTE | 2019-12-21 06:37 | NUR ---
SHIFT SUMMARY NO ACUTE CHANGES THIS SHIFT. AOX4. SLEPT WELL T/O NIGHT. DENIES DYSPNEA, N/V. REPORTS MILD PAIN ALLOVER BODY, MEDICATED W/TYLENOL & REPORTS RELIEF. PT IS A TWO ASSIST TO REPOSITION IN BED, STATES SHE IS LOOKING FORWARD TO GETTING UP TO RECLINER TODAY LIKE YESTERDAY & IS HAPPY ABOUT THE WEIGHT SHE IS LOSING. HEATHER IS PATENT & DRAINING. CALL LIGHT IN REACH. WCTM.
--- NOTE | 2019-12-21 20:31 | NUR ---
HARVEY REPORTED HER SUCCESS OF GETTING UP TO THE CHAIR AND ABILITY TO HAVE LEGS DOWN TO THE FLOOR. SHE TALKS ABOUT HER WEIGHT LOSS AND HOW HER GOAL IS TO WALK AGAIN ONE DAY. ENCOURAGED HER SUCCESS. LUNG SOUNDS ARE COURSE, COUGH NON-PRODUCTIVE. REDNESS NOTED IN SKIN FOLDS OF THE ARMPIT, BREAST AND SOME OF THE ABDOMEN. MEDS GIVEN PER EMAR. DENIED ANY NEEDS AT THIS TIME. WILL CONTINUE TO MONITOR.
[2019-12-22 05:30] LABS: BASOPHILS ABSOLUTE AUTO 0.01 K/mm3 (0.00-0.23); BASOPHILS PERCENT AUTO 0 % (0-2); EOSINOPHILS ABSOLUTE AUTO 0.13 K/mm3 (0.00-0.68); EOSINOPHILS PERCENT AUTO 2 % (0-6); Hematocrit 33.6 % (33.0-51.0); Hemoglobin 10.2 g/dL (11.5-16.0); IMMATURE GRAN ABSOLUTE AUTO 0.17 K/mm3 (0.00-0.10); IMMATURE GRAN PERCENT AUTO 3 % (0-1); LYMPHOCYTES ABSOLUTE AUTO 1.01 K/mm3 (0.84-5.20); LYMPHOCYTES PERCENT AUTO 15 % (21-46); MONOCYTES ABSOLUTE AUTO 0.57 K/mm3 (0.16-1.47); MONOCYTES PERCENT AUTO 9 % (4-13); Mean Corpuscular HGB 30.2 pg (26.0-34.0); Mean Corpuscular HGB Conc 30.4 g/dL (31.5-36.5); Mean Corpuscular Volume 99 fL (80-100); Mean Platelet Volume 10.9 fL (9.1-12.4); NEUTROPHILS ABSOLUTE AUTO 4.69 K/mm3 (1.96-9.15); NEUTROPHILS PERCENT AUTO 71 % (41-73); Platelet Count 153 K/mm3 (150-400); RDW Coefficient Variation 15.1 % (11.7-14.2); RDW Standard Deviation 55.3 fL (35.1-46.3); Red Blood Cell Count 3.38 M/mm3 (3.80-5.20); White Blood Cell Count 6.58 K/mm3 (4.00-11.30)
--- NOTE | 2019-12-22 05:34 | NUR ---
SHIFT SUMMARY: HARVEY VS HAVE REMAINED STABLE. NO PAIN IS NOTED, BUT DOES TAKE TYLENOL AT BEDTIME. SHE IS ABLE TO REPOSITION SELF IN BED, ALONG WITH TURNING SELF WITH 2 PERSON ASSIST. COUGH HAS REMAINED NON-PRODUCTIVE. LUNG SOUNDS ARE DIMINISHED. MILD REDNESS IN SKIN FOLDS NYSTATIN POWDER APPLIED. CATHETER REMAINED PATENT AND DRAINING. NO ACUTE CHANGES THIS SHIFT. CALL LIGHT REMAINED IN REACH.
[2019-12-22 05:49] LABS: Calcium, Blood 8.3 mg/dL (8.5-10.1); Creatinine, Blood 1.5 mg/dL (0.40-1.00); Potassium, Blood 3.9 mmol/L (3.5-5.5)
--- NOTE | 2019-12-22 15:43 | NUR ---
summary PT IS A/O X4, PLEASANT AFFECT. SHE IS EXTREMELY OBESE, APPROX 480 LBS, STATE UNABLE TO AMBULATE/BR WT R/T OBESITY & BAD KNEES. SHE HAD COMPLETE BEDBATH TODAY, BARRIER OINT APPLIED TO AREAS OF THICK ORANGE PEEL TYPE SKIN BLE & GROIN. NYSTATIN POWDER TO REDDENED AREAS OF SKIN FOLDS. SHE HAD +BM TODAY. UP w LIFT TO RECLINER FOR APPROX 2HRS. VSS. KIDNEY FX @ BASELINE/DR, SHE FINISHED COURSE OF TAMIFLU. COUGH CONTINUES, COUGH MEDS PROVIDED/ORDER. AFEBRILE.
--- NOTE | 2019-12-23 05:36 | NUR ---
SHIFT SUMMARY PT HAS HAD NO ACUTE CHANGES THIS SHIFT, NO COMPLAINTS OF ANY KIND, SLEPT T/O SHIFT, BEDRESTING AT THIS TIME, CALL LIGHT IN REACH, WILL CONT TO MONITOR UNTIL REPORT GIVEN TO DAY RN.
--- NOTE | 2019-12-23 15:26 | NUR ---
SUMMARY PT CONTINUES TO AWAIT SNF PLACEMENT. REPRESENTATIVES FROM [facility] WERE HERE TO SEE HER THIS AFTERNOON, PT STATE POSITIVE INTERVIEW, HOPEFUL FOR ACCEPTANCE. SHE IS A/O X4, PLEASANT/COOPERATIVE. SHE CONTINUES BEDBOUND D/T OBESITY & WEAK KNEES, USING LIFT TO GET HER OOB TO CHAIR. SHE GOT UP TO CHAIR THIS AFTERNOON AFTER INTERVIEW. HER WT CONTINUES TO DECREASE @ 465LBS TODAY. GOOD URINE OUTPUT VIA ROMERO CATH. COMPLETE BEDBATH w EMPHASIS ON SKIN FOLDS & DRY SKIN PROVIDED, NYSTATIN TO RASH AREAS, BARRIER OINT TO DRY THICK SKIN. VSS. SHE STATE FLU SYMPTOMS HAVE MOSTLY IMPROVED, OCC MUSIC LIBRARIAN COUGH, ISOLATION PRECAUTIONS D/C'D.
--- NOTE | 2019-12-24 03:10 | NUR ---
WASTEWATER TREATMENT PLANT SUPERVISOR SUMMARY PT A/O X4. SLEPT WELL TONIGHT. PT COMPLAINED OF JOINT PAIN DUE TO WORKING WITH PT THIS MORNING. MEDICATED WITH TYLENOL BEFORE BED. SLEPT WELL THROUGHOUT THE NIGHT. NO OTHER COMPLAINTS. NYSTATIN POWDER APPLIED TO FOLDS. CALDYPHEN LOTION APPLIED TO BILATERAL SHOULDERS. VSS. NO ACUTE CHANGES.
--- NOTE | 2019-12-24 16:58 | NUR ---
PT AOX4 AND COOPERATIVE OF CARE. PT HAS BEEN DOING WELL. SKIN CONTINUES TO IMPROVE. PT IS VERY POSITIVE AND WAS UP IN CHAIR AND WORKED WELL WITH PHYSICAL THERAPY. PT TREATED FOR PAIN PER EMAR. BED BATH COMPLETED AND PT WORKS HARD TO ASSIST IN TURNING. NO DRAINAGE ON R LEG ANY MORE AND ONLY MILD DRAINAGE ON L LEG. WILL CONTINUE TO MONITOR.
--- NOTE | 2019-12-25 07:35 | NUR ---
12/25/19 0510 PT C/O LEVEL "9" LOW BACK PAIN. MEDICATED PER JAN. PT FOLLOWS FLUID RESTRICTION STRICTLY. UNEVENTFUL NIGHT.
--- NOTE | 2019-12-25 17:27 | NUR ---
SHIFT SUMMARY PATIENT HAD COMPLAINTS OF BLADDER DISCOMFORT. NOTIFIED ORDERS PLACED FOR AZO STARTING TONIGHT. X3 DOSES. PATIENT TURNED AND PLACED ON BEDPAN THROUGHOUT THE DAY. WITH LIFT SHIFT PATIENT UP IN CHAIR FOR ABOUT 2 HOURS. ABLE TO MAKE HER NEEDS KNOWN. EAGER AND COOPERATIVE WITH ALL CARES.
--- NOTE | 2019-12-26 06:35 | NUR ---
12/26/19 0530 VITALS STABLE. FLUID RESTRICTIONS MAINTAINED. PT VERY POSITIVE WITH PLAN OF CARE. SEE MAR FOR MEDS GIVEN. OCC. ITCHING OF SKIN AND MEDICATED PRN.
--- NOTE | 2019-12-26 16:54 | NUR ---
Shift Summary A/Ox4, pleasant and cooperative. Pt has been very motivated in participating in care. Medicated x 1 for 7/10 knee pain prior to physical therapy session. There has been no acute changes this shift. Appetite is great, compliant with fluid restrictions. Will continue to monitor.
[2019-12-27 06:02] LABS: Hematocrit 37.2 % (33.0-51.0); Hemoglobin 11.9 g/dL (11.5-16.0); Mean Corpuscular HGB 30.7 pg (26.0-34.0); Mean Platelet Volume 11.9 fL (9.1-12.4); Platelet Count 83 K/mm3 (150-400); RDW Coefficient Variation 15.1 % (11.7-14.2); RDW Standard Deviation 54.1 fL (35.1-46.3); Red Blood Cell Count 3.87 M/mm3 (3.80-5.20); White Blood Cell Count 11.03 K/mm3 (4.00-11.30)
[2019-12-27 06:06] LABS: Bun/Creatinine Ratio 22.3 (12.0-20.0); Calcium, Blood 9.1 mg/dL (8.5-10.1); Creatinine, Blood 1.97 mg/dL (0.40-1.00); Potassium, Blood 4.1 mmol/L (3.5-5.5)
[2019-12-27 06:06] LABS: Mean Corpuscular Volume 96 fL (80-100)
[2019-12-27 06:28] LABS: BAND PERCENT MAN 4 % (0-8); BASOPHILS PERCENT MAN 0 % (0-2); EOSINOPHILS PERCENT MAN 0 % (0-6); LYMPHOCYTES ABSOLUTE MAN 0.33 K/mm3 (0.84-5.20); LYMPHOCYTES PERCENT MAN 3 % (21-46); MONOCYTES ABSOLUTE MAN 0.22 K/mm3 (0.16-1.47); MONOCYTES PERCENT MAN 2 % (4-13); NEUTROPHILS ABSOLUTE MAN 10.47 K/mm3 (1.96-9.15); SEG NEUTROPHILS PERCENT MAN 91 % (41-73); TOTAL CELLS COUNTED 100
--- NOTE | 2019-12-27 07:22 | NUR ---
12/27/19 0350 PT RANG CALL LIGHT AND C/O DRY HEAVING FROM NAUSEA. PT ALSO HAVING "UNCONTROLABLE SHAKING". VITALS TAKEN AND TEMP= 102.2 INITIALLY THEN WAS 100.5 . HEART RATE = 140. RESP 22, O2 SAT = 84% AND TROLLEY CAR OPERATOR, CARITO APPLIED O2 AT 6LPM WITH SATS IMPROVING TO 93-94%. PT DENIES ANY PAIN. SEE MAR FOR MEDS GIVEN FOR NAUSEA, FEVER AND HIGH HEART RATE. VITALS MONITORED AND FURS SALESPERSON , DR OLIVEIRA, NOTIFIED OF EVENTS. SEE ORDERS FOR LABWORK AND CHEST X-RAY.
--- NOTE | 2019-12-27 07:33 | NUR ---
12/27/19 0540 PT RESTING COMFORTABLY. VITALS IMPROVING. NAUSEA AND FEVER BETTER. PT STILL ON O2 AT 4LPM.
--- NOTE | 2019-12-27 09:18 | NUR ---
VEWS [address] AMOS OF VEW 4 D/T BP 101/52, HR 138, RESP 20, TEMP 98.0, 91% 2L. PER DR. AMOS, HOLD BUMEX AND MONITOR.
--- NOTE | 2019-12-27 11:11 | NUR ---
LACIE SENT THIS RN COLLECTED UA THROUGH [facility]HETHER PORT, SENT INTO LAB.
[2019-12-27 12:02] LABS: Source, Urine Clean Catch
[2019-12-27 12:09] LABS: Appearance, Urine Cloudy (Clear); Bilirubin, Urine 2+ (Neg); Blood, Urine 5+ (Neg); Color, Urine Amber (P-Yellow); Glucose Qualitative, Urine Neg (Neg); Ketones, Urine 1+ (Neg); Leukocyte Esterase, Urine 3+ (Neg); Nitrite, Urine Neg (Neg); Protein, Urine 3+ (Neg); Specific Gravity, Urine 1.025 (1.003-1.022); Urobilinogen, Urine 1+ (Normal)
[2019-12-27 12:17] LABS: Red Blood Cells, Urine 50-100 /hpf (0-2)
[2019-12-27 12:18] LABS: Bacteria Many /hpf; Squamous Epithelial Cells Few /hpf (Few); White Blood Cells, Urine TNTC /hpf (0-5)
--- NOTE | 2019-12-27 16:47 | NUR ---
Shift Summary A/Ox4, HR sustained 130's for most of the morning and is now 90's, telemetry in place. Afebrile, denies nausea, vomiting, pain, SOB. Declined working with PT today. Pt also declined breakfast and lunch, doing well with PO ice water. No other concerns.
--- NOTE | 2019-12-27 22:18 | NUR ---
ADY Espinal updated on positve bc and current tx . Aflutter on tele rate 89 to 92 and some hypotension resolved on recheck. Discussed rx stated today and prior UTI geo Krusei. PT continues with nath cath. Ate 50% dinner.
--- NOTE | 2019-12-28 00:42 | NUR ---
KYLIE Koroma QUALITY CONTROL PROJECTIONIST RX IV levaquin 750 mg daily at 2100 first dose given after establishing saline lock rt forearm. iv patent currently but PT historically has very poor access. Changed to oral route after discussing with pharmacy and Kylie QUALITY CONTROL PROJECTIONIST order. Urine very thick cloudy C & S pending
[2019-12-28 05:10] LABS: BASOPHILS ABSOLUTE AUTO 0.03 K/mm3 (0.00-0.23); BASOPHILS PERCENT AUTO 0 % (0-2); EOSINOPHILS ABSOLUTE AUTO 0.46 K/mm3 (0.00-0.68); EOSINOPHILS PERCENT AUTO 3 % (0-6); Hematocrit 31.5 % (33.0-51.0); Hemoglobin 9.7 g/dL (11.5-16.0); IMMATURE GRAN ABSOLUTE AUTO 0.08 K/mm3 (0.00-0.10); IMMATURE GRAN PERCENT AUTO 1 % (0-1); LYMPHOCYTES ABSOLUTE AUTO 1.08 K/mm3 (0.84-5.20); LYMPHOCYTES PERCENT AUTO 7 % (21-46); MONOCYTES ABSOLUTE AUTO 1.64 K/mm3 (0.16-1.47); MONOCYTES PERCENT AUTO 10 % (4-13); Mean Corpuscular HGB 30.8 pg (26.0-34.0); Mean Corpuscular HGB Conc 30.8 g/dL (31.5-36.5); Mean Platelet Volume 12.4 fL (9.1-12.4); NEUTROPHILS ABSOLUTE AUTO 12.81 K/mm3 (1.96-9.15); NEUTROPHILS PERCENT AUTO 80 % (41-73); Platelet Count 90 K/mm3 (150-400); RDW Coefficient Variation 15.5 % (11.7-14.2); Red Blood Cell Count 3.15 M/mm3 (3.80-5.20)
--- NOTE | 2019-12-28 05:10 | NUR ---
PT had 1 positive blood culture, UA C & S pending. Started on levaquin 1 IV dose given, then giving oral based on kidney function. on tele with consistant aflutter. Urine very cloudy chalky scant output. no fevers, ate 50% diet without nausea.
[2019-12-28 05:12] LABS: Mean Corpuscular Volume 100 fL (80-100)
[2019-12-28 05:38] LABS: Albumin, Blood 1.9 g/dL (3.4-5.0); Anion Gap 4 mmol/L (6-16); Blood Urea Nitrogen 55 mg/dL (8-24); Bun/Creatinine Ratio 20.7 (12.0-20.0); CO2, Blood 34 mmol/L (21-32); Calcium, Blood 8.5 mg/dL (8.5-10.1); Chloride, Blood 95 mmol/L (98-108); Creatinine, Blood 2.66 mg/dL (0.40-1.00); Glomerular Filtration Rate 19 (60-); Glucose, Blood 91 mg/dL (70-99); Magnesium, Blood 1.9 mg/dL (1.6-2.4); Phosphorus, Blood 3.9 mg/dL (2.5-4.9); Potassium, Blood 4.5 mmol/L (3.5-5.5); Sodium, Blood 133 mmol/L (136-145)
--- NOTE | 2019-12-28 18:05 | NUR ---
PT HAS BEEN STABLE THIS SHIFT. PT CONTINUED TO HAVE SOME HYPOTENTION. BUMEX DC'D. PT HAD BOLUS OF 500CC AND MAINTENANCE FLUIDS. TELE AFLUTTER IN THE 100'S. REMAINS ON 2L O2. PT GIVEN MIRILAX, HAVING HARD PELLET LIKE STOOL. ROMERO TO BE DC'D THIS EVENING. CONT TO BE CLOUDY WITH SEDIMENT. PT HAS COMPLETE BED BATH THIS AM. CREAMS AND POWDER PLACED TO SKIN AND FOLDS ORDERED. PREVENTATIVE MEPILEX PLACED BUT PT STATED IT WAS UNCOMFORTABLE SO IT WAS REMOVED. AM LABS TO BE REPEATED. FOLLOWING FLUID RESTRICTION WELL. UP TO CHAIR X 1 HOUR TODAY. ALSO WORKED WITH THERAPY TO DO BED EXERCISES. PLAN FOR DC TO REHAB PROBABLY THURSDAY. PT USES CALL LIGHT APPROPRIATELY.
--- NOTE | 2019-12-28 19:59 | NUR ---
Patient laying in bed. denies pain, SOB, n/v/d. shift assessment completed. we discussed what time she would like her bedtime meds. bed low and locked. call flores within reach.
[2019-12-29 04:52] LABS: BASOPHILS ABSOLUTE AUTO 0.03 K/mm3 (0.00-0.23); BASOPHILS PERCENT AUTO 0 % (0-2); EOSINOPHILS ABSOLUTE AUTO 0.55 K/mm3 (0.00-0.68); EOSINOPHILS PERCENT AUTO 5 % (0-6); Hematocrit 31.3 % (33.0-51.0); Hemoglobin 9.6 g/dL (11.5-16.0); IMMATURE GRAN ABSOLUTE AUTO 0.03 K/mm3 (0.00-0.10); IMMATURE GRAN PERCENT AUTO 0 % (0-1); LYMPHOCYTES ABSOLUTE AUTO 0.81 K/mm3 (0.84-5.20); LYMPHOCYTES PERCENT AUTO 8 % (21-46); MONOCYTES ABSOLUTE AUTO 1.43 K/mm3 (0.16-1.47); MONOCYTES PERCENT AUTO 14 % (4-13); Mean Corpuscular HGB 30.3 pg (26.0-34.0); Mean Corpuscular HGB Conc 30.7 g/dL (31.5-36.5); Mean Corpuscular Volume 99 fL (80-100); Mean Platelet Volume 12.3 fL (9.1-12.4); NEUTROPHILS ABSOLUTE AUTO 7.26 K/mm3 (1.96-9.15); NEUTROPHILS PERCENT AUTO 72 % (41-73); Platelet Count 103 K/mm3 (150-400); RDW Coefficient Variation 15.1 % (11.7-14.2); RDW Standard Deviation 55.3 fL (35.1-46.3); Red Blood Cell Count 3.17 M/mm3 (3.80-5.20); White Blood Cell Count 10.11 K/mm3 (4.00-11.30)
[2019-12-29 05:07] LABS: Albumin, Blood 1.9 g/dL (3.4-5.0); Anion Gap 5 mmol/L (6-16); Blood Urea Nitrogen 60 mg/dL (8-24); Bun/Creatinine Ratio 21.9 (12.0-20.0); CO2, Blood 36 mmol/L (21-32); Calcium, Blood 8.2 mg/dL (8.5-10.1); Chloride, Blood 96 mmol/L (98-108); Creatinine, Blood 2.74 mg/dL (0.40-1.00); Glomerular Filtration Rate 19 (60-); Glucose, Blood 98 mg/dL (70-99); Magnesium, Blood 1.8 mg/dL (1.6-2.4); Phosphorus, Blood 3.9 mg/dL (2.5-4.9); Potassium, Blood 4.2 mmol/L (3.5-5.5); Sodium, Blood 137 mmol/L (136-145)
--- NOTE | 2019-12-29 06:46 | NUR ---
END OF SHIFT PATIENT DID REALLY WELL THIS SHIFT SHE IS MUCH IMPROVED FROM PREVIOUS VISIT SHE IS GROWING IN STRENGTH AND MORE ABLE TO HELP WITH HER CARE, LIFTING HER LEGS AND ROLLING MORE EASILY, SITTING FORWARD IN THE BED, ANDS SO ON. SHE DENIES PAIN THIS SHIFT. SHE WAS GIVEN MEDS PER EMAR. NO ACUTE CHANGES TONIGHT
--- NOTE | 2019-12-29 09:33 | NUR ---
METOPEROL & HYPOTENSION. DR. AMOS NOTIFIE DOF PT BP 106/55 AND HR 91. METOPEROL 50MG DUE THIS AM. PT BECAME HYPOTENSIVE YESTERDAY AND RECIEVED 500CC BOLUS. DR. AMOS ORDERED TO GIVE 25MG THIS AM INSTEAD OF 50MG. WILL CONTINUE TO MONITOR.
--- NOTE | 2019-12-29 16:48 | NUR ---
SHIFT SUMMARY PT GIVEN BED BATH THIS SHIFT. PT UP TO [facility] FOR APPROX 2 HOURS. WORKED WITH PT THIS SHIFT. MEDICATED FOR PAIN ONCE PRIOR TO PT TREATMENT. WOUND ON INNER R THIGH PHOTOGRAPHED AND BANDAGED. NO OTHER CHANGES IN ASSESSMENT AT THIS TIME. PT CONTINUES TO VOID WELL, INCONTINENTLY, WITHOUT PAIN OR BURNING. VSS. PT AWAITING PLACEMENT TO [facility] THURSDAY. WILL CONTIUE TO MONITOR UNTIL TURNOVER IS COMPLETE.
[2019-12-30 05:56] LABS: Hematocrit 31.6 % (33.0-51.0); Hemoglobin 9.8 g/dL (11.5-16.0)
[2019-12-30 06:11] LABS: Anion Gap 6 mmol/L (6-16); Blood Urea Nitrogen 60 mg/dL (8-24); Bun/Creatinine Ratio 23.1 (12.0-20.0); CO2, Blood 36 mmol/L (21-32); Calcium, Blood 8.5 mg/dL (8.5-10.1); Chloride, Blood 95 mmol/L (98-108); Glomerular Filtration Rate 20 (60-); Glucose, Blood 90 mg/dL (70-99); Magnesium, Blood 1.8 mg/dL (1.6-2.4); Phosphorus, Blood 3.3 mg/dL (2.5-4.9); Potassium, Blood 4.1 mmol/L (3.5-5.5); Sodium, Blood 137 mmol/L (136-145)
--- NOTE | 2019-12-30 06:38 | NUR ---
MACHINE CRATER SUMMARY NO ACUTE CHANGES THIS SHIFT. PT AAOX4, PLEASANT. PT CONTINUES VOIDING REGULARLY SINCE ROMERO DC 2 DAYS AGO. ASSISTED WITH TURNS AND CHANGES. VSS, WILL CONTINUE TO MONITOR.
--- NOTE | 2019-12-30 16:55 | NUR ---
SHIFT SUMMARY PT BATHED & UP TO CHAIR THIS SHIFT. PT MEDICATED FOR PAIN ONCE THIS SHIFT. VSS. METOPEROL CHANGED TO 12.5 BID DUE TO HYPOTENSION TREND. PT AWAITING PLACEMENT FOR SNF ON THURSDAY. NO OTHER CHANGES IN ASSESSMENT AT THIS TIME. WILL CONTINUE TO MONITOR UNTIL TURNOVER IS COMPETE.
--- NOTE | 2019-12-31 04:19 | NUR ---
SHIFT SUMMARY PT HAS HAD NO ACUTE CHANGES THIS SHIFT, MEDICATED 1X FOR GENERAL PAIN THEN PT SLEPT THRU THE NIGHT, BEDRESTING AT THIS TIME W/CALL LIGHT IN REACH, WILL CONT TO MONITOR UNTIL REPORT GIVEN TO DAY RN.
[2019-12-31 05:02] LABS: Hematocrit 30.7 % (33.0-51.0); Hemoglobin 9.7 g/dL (11.5-16.0)
[2019-12-31 05:16] LABS: Albumin, Blood 1.9 g/dL (3.4-5.0); Anion Gap 6 mmol/L (6-16); Blood Urea Nitrogen 58 mg/dL (8-24); Bun/Creatinine Ratio 23.8 (12.0-20.0); CO2, Blood 34 mmol/L (21-32); Calcium, Blood 8.2 mg/dL (8.5-10.1); Chloride, Blood 97 mmol/L (98-108); Creatinine, Blood 2.44 mg/dL (0.40-1.00); Glomerular Filtration Rate 21 (60-); Glucose, Blood 97 mg/dL (70-99); Magnesium, Blood 1.9 mg/dL (1.6-2.4); Phosphorus, Blood 3.1 mg/dL (2.5-4.9); Potassium, Blood 4.1 mmol/L (3.5-5.5); Sodium, Blood 137 mmol/L (136-145)
--- NOTE | 2019-12-31 17:17 | NUR ---
SHIFT SUMMARY PT AXO, PLEASANT AND COOPERATIVE WITH CARE. BP OF 96/59 AT 1540 THOUGH ACCORDING TO PAST VS, PT HAS HAD HYPOTENSION DURING THIS HOSPITALIZATION. WILL CONTINUE TO MONITOR. PT UP TO RECLINER X1 THIS SHIFT VIA LIFT. NO ACUTE CHANGES THIS SHIFT. BED IN LOW POSITION, CALL LIGHT WITHIN REACH.
--- NOTE | 2020-01-01 04:00 | NUR ---
SHIFT SUMMARY PT HAS HAD NO ACUTE CHANGES THIS SHIFT, MEDICATED 1X FOR PAIN @ BEDTIME, NO OTHER C/O ANY KIND, PT HAS SLEPT THRU THE NIGHT AND IS SLEEPING AT THIS TIME W/CALL LIGHT IN REACH, WILL CONT TO MONITOR UNTIL REPORT GIVEN TO DAY RN.
[2020-01-01 05:39] LABS: BASOPHILS ABSOLUTE AUTO 0.02 K/mm3 (0.00-0.23); BASOPHILS PERCENT AUTO 0 % (0-2); EOSINOPHILS ABSOLUTE AUTO 0.52 K/mm3 (0.00-0.68); EOSINOPHILS PERCENT AUTO 9 % (0-6); Hemoglobin 9.5 g/dL (11.5-16.0); IMMATURE GRAN ABSOLUTE AUTO 0.05 K/mm3 (0.00-0.10); IMMATURE GRAN PERCENT AUTO 1 % (0-1); LYMPHOCYTES ABSOLUTE AUTO 1.07 K/mm3 (0.84-5.20); LYMPHOCYTES PERCENT AUTO 18 % (21-46); MONOCYTES ABSOLUTE AUTO 0.78 K/mm3 (0.16-1.47); MONOCYTES PERCENT AUTO 13 % (4-13); Mean Corpuscular HGB 30.3 pg (26.0-34.0); Mean Corpuscular HGB Conc 30.6 g/dL (31.5-36.5); Mean Corpuscular Volume 99 fL (80-100); Mean Platelet Volume 11.9 fL (9.1-12.4); NEUTROPHILS PERCENT AUTO 60 % (41-73); Platelet Count 135 K/mm3 (150-400); RDW Coefficient Variation 15.4 % (11.7-14.2); RDW Standard Deviation 55.7 fL (35.1-46.3); Red Blood Cell Count 3.14 M/mm3 (3.80-5.20); White Blood Cell Count 6.04 K/mm3 (4.00-11.30)
[2020-01-01 06:13] LABS: Albumin, Blood 1.9 g/dL (3.4-5.0); Anion Gap 5 mmol/L (6-16); Blood Urea Nitrogen 52 mg/dL (8-24); Bun/Creatinine Ratio 24.4 (12.0-20.0); CO2, Blood 35 mmol/L (21-32); Calcium, Blood 8.5 mg/dL (8.5-10.1); Chloride, Blood 98 mmol/L (98-108); Creatinine, Blood 2.13 mg/dL (0.40-1.00); Glomerular Filtration Rate 25 (60-); Glucose, Blood 90 mg/dL (70-99); Phosphorus, Blood 3.2 mg/dL (2.5-4.9); Potassium, Blood 3.7 mmol/L (3.5-5.5); Sodium, Blood 138 mmol/L (136-145)
--- NOTE | 2020-01-01 18:34 | NUR ---
SHIFT SUMMARY PT AXO PLEASANT AND COOPERATIVE WITH CARE. PT HAD ONE EPISODE OF THICK YELLOW VAGINAL DISCHARGE. WILL CONTINUE TO MONITOR AND WILL PASS ON TO E LEARNING MANAGER NURSE. PT MEDICATED FOR R. SHOULDER PAIN. PT UP TO CHAIR X1 THIS SHIFT. BED IN LOW POSITION, CALL LIGHT WITHIN REACH. VSS.
--- NOTE | 2020-01-02 04:21 | NUR ---
SHIFT SUMMARY PT HAS HAD NO ACUTE CHANGES THIS SHIFT, MEDICATED 1X FOR GENERAL PAIN @ BEDTIME, NO OTHER C/O ANY KIND. PT BEDRESTING AT THIS TIME, CALL LIGHT IN REACH, WILL CONT TO MONITOR UNTIL REPORT GIVEN TO DAY RN.
[2020-01-02 04:57] LABS: Hematocrit 30.4 % (33.0-51.0); Hemoglobin 9.5 g/dL (11.5-16.0)
[2020-01-02 05:16] LABS: Anion Gap 7 mmol/L (6-16); Blood Urea Nitrogen 47 mg/dL (8-24); Bun/Creatinine Ratio 24.7 (12.0-20.0); CO2, Blood 34 mmol/L (21-32); Calcium, Blood 8.5 mg/dL (8.5-10.1); Chloride, Blood 99 mmol/L (98-108); Glomerular Filtration Rate 28 (60-); Glucose, Blood 96 mg/dL (70-99); Magnesium, Blood 1.9 mg/dL (1.6-2.4); Phosphorus, Blood 3.6 mg/dL (2.5-4.9); Potassium, Blood 3.9 mmol/L (3.5-5.5); Sodium, Blood 140 mmol/L (136-145)
[2020-01-02] MEDS ORDERED: Bumetanide1 MG PO (11:02)
[2020-01-02] MEDS ORDERED: ALBU90OI INH (11:04)
[2020-01-02] MEDS ORDERED: ACET325 PO (11:04)
[2020-01-02] MEDS ORDERED: CEPACOL SORE T1 EACH MT (11:05)
[2020-01-02] MEDS ORDERED: BENZ100A PO (11:05)
[2020-01-02] MEDS ORDERED: ROBITUSSIN COU237 M1 PO (11:06)
[2020-01-02] MEDS ORDERED: BENADRYL25 MG PO (11:06)
[2020-01-02] MEDS ORDERED: Vsl#3 Capsule1 EACH PO (11:07)
[2020-01-02] MEDS ORDERED: Benadryl Itch28.3 G1 TOP (11:07)
[2020-01-02] MEDS ORDERED: MIRALAX17 GM PO (11:07)
[2020-01-02] MEDS ORDERED: ONDA4 PO (11:07)
[2020-01-02] MEDS ORDERED: GUAI600T33 PO (11:07)
[2020-01-02] MEDS ORDERED: [UNRECOGNIZED DRUG - OTHER] TOP (11:08)
--- NOTE | 2020-01-02 14:58 | NUR ---
SHIFT SUMMARY PT AWAKE DURING SHIFT REPORT. PT PREPARING FOR D/C, HAVING LIFT AND W/C FROM HOME TAKEN TO . ISTRATE IN TO SEE PT. D/C ORDERS PLACED. TX ARRANGED. PT INCONTINENT OF URINE; ATTENDS UNDER BUTTOCKS. PT ON BEDPAN FOR BM JUST PRIOR TO TX ARRIVING. PT CLEANED AND HOME GOWN PLACED PER PT REQUEST. LIFT TX TO [facility] [place]. PT BELONGINGS AND BLANKET SENT WITH PT. NO C/O.
== END 2020-01-02 14:43 | DRG 682 ==
LOC: ER 11:51 → MEDS 14:03 → ENPENDDIS 01-02 10:10 → MEDS 01-02 14:43
PROVIDERS: Emergency Medicine; Family Medicine; Hospitalist; Internal Medicine; Internal Medicine Nephrology; Nurse Practitioner Acute Care; ADMIT Internal Medicine
PROC: 30233N1 Transfusion of Nonautologous Red Blood Cells into Peripheral Vein, Percutaneous Approach (ICD-10-PCS; principal; 2019-12-17)
DX: N17.9 Acute kidney failure, unspecified (principal); I50.33 Acute on chronic diastolic (congestive) heart failure; J96.21 Acute and chronic respiratory failure with hypoxia; I13.0 Hypertensive heart and chronic kidney disease with heart failure and stage 1 through stage 4 chronic kidney disease, or unspecified chronic kidney disease; Z68.45 Body mass index [BMI] 70 or greater, adult; E66.2 Morbid (severe) obesity with alveolar hypoventilation; E87.1 Hypo-osmolality and hyponatremia; D69.3 Immune thrombocytopenic purpura; R78.81 Bacteremia; N18.4 Chronic kidney disease, stage 4 (severe); D63.1 Anemia in chronic kidney disease; E03.9 Hypothyroidism, unspecified; E87.5 Hyperkalemia; E88.09 Other disorders of plasma-protein metabolism, not elsewhere classified; D69.49 Other primary thrombocytopenia; Z87.891 Personal history of nicotine dependence; R21 Rash and other nonspecific skin eruption; N93.9 Abnormal uterine and vaginal bleeding, unspecified; I89.0 Lymphedema, not elsewhere classified; J20.9 Acute bronchitis, unspecified; J09.X2 Influenza due to identified novel influenza A virus with other respiratory manifestations; B96.20 Unspecified Escherichia coli [E. coli] as the cause of diseases classified elsewhere
CPT/HCPCS: 0099U; 36415; 36430; 51702; 71045; 76770; 80048; 80053; 80069; 81001; 81050; 82550; 82570; 82728; 82784; 83516; 83520; 83540; 83550; 83735; 83880; 84100; 84132; 84156; 84165; 84166; 84540; 85007; 85014; 85018; 85025; 85027; 86038; 86256; 86334; 86850; 86900; 86901; 86923; 87040; 87070; 87077; 87086; 87186; 87205; 90686; 92610; 93005; 93010; 94640; 94660; 94760; 94762; 96374-59; 97110; 97161; 97162; 97165; 97530; 99285-25; A9270; A9270-GY; J0881; J1200; J1644; J1815; J1956; J2930; J3010; J3480; J7030; J7040; J7042; J7050; J7512; P9016; Q0163

== ENCOUNTER → 2020-01-11 | Outpatient (CLI) | payer OTHER ==
[~2020-01-11] MED LIST changes: +ACET325 PO; +ALBU90OI INH; +BENADRYL25 MG PO; +BENZ100A PO; +Benadryl Itch28.3 G1 TOP; +Bumetanide1 MG PO; +CEPACOL SORE T1 EACH MT; +GUAI600T33 PO; +MIRALAX17 GM PO; +ONDA4 PO; +ROBITUSSIN COU237 M1 PO; +Vsl#3 Capsule1 EACH PO; +[UNRECOGNIZED DRUG - OTHER] TOP
[2020-01-11 10:38] LABS: BASOPHILS ABSOLUTE AUTO 0.01 K/mm3 (0.00-0.23); BASOPHILS PERCENT AUTO 0 % (0-2); EOSINOPHILS PERCENT AUTO 0 % (0-6); Hematocrit 33.3 % (33.0-51.0); Hemoglobin 9.7 g/dL (11.5-16.0); IMMATURE GRAN ABSOLUTE AUTO 0.07 K/mm3 (0.00-0.10); IMMATURE GRAN PERCENT AUTO 1 % (0-1); LYMPHOCYTES ABSOLUTE AUTO 0.72 K/mm3 (0.84-5.20); LYMPHOCYTES PERCENT AUTO 12 % (21-46); MONOCYTES ABSOLUTE AUTO 0.59 K/mm3 (0.16-1.47); MONOCYTES PERCENT AUTO 10 % (4-13); Mean Corpuscular HGB 30.6 pg (26.0-34.0); Mean Corpuscular HGB Conc 29.1 g/dL (31.5-36.5); Mean Platelet Volume 11.5 fL (9.1-12.4); NEUTROPHILS PERCENT AUTO 78 % (41-73); Platelet Count 139 K/mm3 (150-400); RDW Coefficient Variation 16.3 % (11.7-14.2); Red Blood Cell Count 3.17 M/mm3 (3.80-5.20); White Blood Cell Count 6.19 K/mm3 (4.00-11.30)
[2020-01-11 10:40] LABS: Mean Corpuscular Volume 105 fL (80-100)
[2020-01-11 10:48] LABS: Bun/Creatinine Ratio 26.3 (12.0-20.0); Creatinine, Blood 1.37 mg/dL (0.40-1.00)
== END | disposition home or self-care (01) ==
LOC: LAB RH 06:00 → EDSTATUS 13:45 → LAB RH 13:46
PROVIDERS: Family Medicine
DX: I50.32 Chronic diastolic (congestive) heart failure (principal); N18.4 Chronic kidney disease, stage 4 (severe)
CPT/HCPCS: 36415; 80048; 83880; 85025

== ENCOUNTER → 2020-01-18 | Outpatient (CLI) | payer OTHER ==
[2020-01-18 09:00] LABS: Bun/Creatinine Ratio 19.8 (12.0-20.0); Calcium, Blood 8.8 mg/dL (8.5-10.1); Creatinine, Blood 1.01 mg/dL (0.40-1.00); Potassium, Blood 3.9 mmol/L (3.5-5.5)
[2020-01-18 09:01] LABS: BASOPHILS ABSOLUTE AUTO 0.03 K/mm3 (0.00-0.23); BASOPHILS PERCENT AUTO 1 % (0-2); EOSINOPHILS ABSOLUTE AUTO 0.29 K/mm3 (0.00-0.68); EOSINOPHILS PERCENT AUTO 7 % (0-6); Hemoglobin 9.4 g/dL (11.5-16.0); IMMATURE GRAN ABSOLUTE AUTO 0.05 K/mm3 (0.00-0.10); IMMATURE GRAN PERCENT AUTO 1 % (0-1); LYMPHOCYTES ABSOLUTE AUTO 0.88 K/mm3 (0.84-5.20); LYMPHOCYTES PERCENT AUTO 20 % (21-46); MONOCYTES PERCENT AUTO 12 % (4-13); Mean Corpuscular HGB 31.4 pg (26.0-34.0); Mean Corpuscular HGB Conc 30.3 g/dL (31.5-36.5); Mean Platelet Volume 11.6 fL (9.1-12.4); NEUTROPHILS PERCENT AUTO 60 % (41-73); Platelet Count 94 K/mm3 (150-400); RDW Coefficient Variation 15.4 % (11.7-14.2); RDW Standard Deviation 59.2 fL (35.1-46.3); Red Blood Cell Count 2.99 M/mm3 (3.80-5.20); White Blood Cell Count 4.35 K/mm3 (4.00-11.30)
[2020-01-18 09:21] LABS: Mean Corpuscular Volume 104 fL (80-100)
[2020-01-18 17:07] LABS: Hematocrit 33.2 % (33.0-51.0); Hemoglobin 9.8 g/dL (11.5-16.0)
[2020-01-18 17:34] LABS: Albumin, Blood 2.4 g/dL (3.4-5.0); Anion Gap 2 mmol/L (6-16); Blood Urea Nitrogen 20 mg/dL (8-24); CO2, Blood 37 mmol/L (21-32); Calcium, Blood 8.8 mg/dL (8.5-10.1); Chloride, Blood 102 mmol/L (98-108); Creatinine, Blood 1.05 mg/dL (0.40-1.00); Glomerular Filtration Rate 56 (60-); Glucose, Blood 103 mg/dL (70-99); Magnesium, Blood 1.8 mg/dL (1.6-2.4); Phosphorus, Blood 3.1 mg/dL (2.5-4.9); Potassium, Blood 3.9 mmol/L (3.5-5.5); Sodium, Blood 141 mmol/L (136-145)
== END | disposition home or self-care (01) ==
LOC: LAB RH 08:01 → EDSTATUS 13:38 → LAB RH 13:38
PROVIDERS: Family Medicine; Internal Medicine Nephrology
DX: N18.4 Chronic kidney disease, stage 4 (severe) (principal); I50.32 Chronic diastolic (congestive) heart failure
CPT/HCPCS: 36415; 80048; 80069; 83735; 83880; 85014; 85018; 85025

== ENCOUNTER → 2020-01-30 | Outpatient (CLI) | payer OTHER ==
[2020-01-30 10:38] LABS: Albumin, Blood 2.3 g/dL (3.4-5.0); Anion Gap 5 mmol/L (6-16); Blood Urea Nitrogen 22 mg/dL (8-24); Bun/Creatinine Ratio 14.9 (12.0-20.0); CO2, Blood 36 mmol/L (21-32); Calcium, Blood 8.4 mg/dL (8.5-10.1); Chloride, Blood 101 mmol/L (98-108); Creatinine, Blood 1.48 mg/dL (0.40-1.00); Glomerular Filtration Rate 38 (60-); Glucose, Blood 97 mg/dL (70-99); Phosphorus, Blood 4.4 mg/dL (2.5-4.9); Potassium, Blood 3.8 mmol/L (3.5-5.5); Sodium, Blood 142 mmol/L (136-145)
== END | disposition home or self-care (01) ==
LOC: LAB RH 08:16 → EDSTATUS 11:04
PROVIDERS: Internal Medicine Nephrology
DX: N18.3 Chronic kidney disease, stage 3 (moderate) (principal)
CPT/HCPCS: 36415; 80069; 85018

== ENCOUNTER → 2020-01-31 | Outpatient (CLI) | payer OTHER ==
[2020-01-31 09:29] LABS: BASOPHILS ABSOLUTE AUTO 0.03 K/mm3 (0.00-0.23); BASOPHILS PERCENT AUTO 1 % (0-2); EOSINOPHILS ABSOLUTE AUTO 0.42 K/mm3 (0.00-0.68); EOSINOPHILS PERCENT AUTO 11 % (0-6); Hematocrit 27.5 % (33.0-51.0); Hemoglobin 8.2 g/dL (11.5-16.0); IMMATURE GRAN PERCENT AUTO 0 % (0-1); LYMPHOCYTES PERCENT AUTO 20 % (21-46); MONOCYTES ABSOLUTE AUTO 0.39 K/mm3 (0.16-1.47); MONOCYTES PERCENT AUTO 10 % (4-13); Mean Corpuscular HGB 30.7 pg (26.0-34.0); Mean Corpuscular HGB Conc 29.8 g/dL (31.5-36.5); Mean Corpuscular Volume 103 fL (80-100); Mean Platelet Volume 11.5 fL (9.1-12.4); NEUTROPHILS ABSOLUTE AUTO 2.36 K/mm3 (1.96-9.15); NEUTROPHILS PERCENT AUTO 59 % (41-73); Platelet Count 109 K/mm3 (150-400); RDW Coefficient Variation 15.9 % (11.7-14.2); RDW Standard Deviation 60.1 fL (35.1-46.3); Red Blood Cell Count 2.67 M/mm3 (3.80-5.20)
[2020-01-31 09:35] LABS: Bun/Creatinine Ratio 15.1 (12.0-20.0); Calcium, Blood 8.4 mg/dL (8.5-10.1); Creatinine, Blood 1.46 mg/dL (0.40-1.00); Potassium, Blood 3.7 mmol/L (3.5-5.5)
== END | disposition home or self-care (01) ==
LOC: LAB RH 07:41 → EDSTATUS 11:06
PROVIDERS: Family Medicine
DX: I50.32 Chronic diastolic (congestive) heart failure (principal); N18.4 Chronic kidney disease, stage 4 (severe)
CPT/HCPCS: 36415; 80048; 83880; 85025

== ENCOUNTER → 2020-02-13 | Outpatient (CLI) | payer OTHER ==
[2020-02-13 11:49] LABS: BASOPHILS ABSOLUTE AUTO 0.02 K/mm3 (0.00-0.23); BASOPHILS PERCENT AUTO 0 % (0-2); EOSINOPHILS ABSOLUTE AUTO 0.51 K/mm3 (0.00-0.68); EOSINOPHILS PERCENT AUTO 10 % (0-6); Hematocrit 31.9 % (33.0-51.0); Hemoglobin 9.9 g/dL (11.5-16.0); IMMATURE GRAN ABSOLUTE AUTO 0.03 K/mm3 (0.00-0.10); IMMATURE GRAN PERCENT AUTO 1 % (0-1); LYMPHOCYTES ABSOLUTE AUTO 1.07 K/mm3 (0.84-5.20); LYMPHOCYTES PERCENT AUTO 20 % (21-46); MONOCYTES ABSOLUTE AUTO 0.46 K/mm3 (0.16-1.47); MONOCYTES PERCENT AUTO 9 % (4-13); Mean Corpuscular HGB 31.1 pg (26.0-34.0); Mean Platelet Volume 12.6 fL (9.1-12.4); NEUTROPHILS ABSOLUTE AUTO 3.24 K/mm3 (1.96-9.15); NEUTROPHILS PERCENT AUTO 61 % (41-73); Platelet Count 105 K/mm3 (150-400); RDW Coefficient Variation 14.9 % (11.7-14.2); RDW Standard Deviation 55.7 fL (35.1-46.3); Red Blood Cell Count 3.18 M/mm3 (3.80-5.20); White Blood Cell Count 5.33 K/mm3 (4.00-11.30)
[2020-02-13 11:56] LABS: Mean Corpuscular Volume 100 fL (80-100)
[2020-02-13 11:58] LABS: Albumin, Blood 2.6 g/dL (3.4-5.0); Anion Gap 4 mmol/L (6-16); Blood Urea Nitrogen 34 mg/dL (8-24); Bun/Creatinine Ratio 22.5 (12.0-20.0); CO2, Blood 40 mmol/L (21-32); Calcium, Blood 9.1 mg/dL (8.5-10.1); Chloride, Blood 92 mmol/L (98-108); Creatinine, Blood 1.51 mg/dL (0.40-1.00); Glomerular Filtration Rate 37 (60-); Glucose, Blood 120 mg/dL (70-99); Phosphorus, Blood 4.5 mg/dL (2.5-4.9); Potassium, Blood 3.1 mmol/L (3.5-5.5); Sodium, Blood 136 mmol/L (136-145)
== END | disposition home or self-care (01) ==
LOC: LAB RH 09:44 → EDSTATUS 11:21
PROVIDERS: Internal Medicine Nephrology
DX: N18.3 Chronic kidney disease, stage 3 (moderate) (principal); D63.1 Anemia in chronic kidney disease
CPT/HCPCS: 80069; 85025

== ENCOUNTER → 2020-02-15 | Outpatient (CLI) | payer OTHER | END | disposition home or self-care (01) | LOC: LAB RH 08:13 → EDSTATUS 11:14 | DX: N18.4 Chronic kidney disease, stage 4 (severe) (principal) | CPT/HCPCS: 84132 ==

== ENCOUNTER → 2020-02-27 | Outpatient (CLI) | payer OTHER ==
[2020-02-27 15:56] LABS: BASOPHILS ABSOLUTE AUTO 0.03 K/mm3 (0.00-0.23); BASOPHILS PERCENT AUTO 1 % (0-2); EOSINOPHILS ABSOLUTE AUTO 0.46 K/mm3 (0.00-0.68); EOSINOPHILS PERCENT AUTO 10 % (0-6); Hematocrit 33.7 % (33.0-51.0); Hemoglobin 10.8 g/dL (11.5-16.0); IMMATURE GRAN ABSOLUTE AUTO 0.01 K/mm3 (0.00-0.10); IMMATURE GRAN PERCENT AUTO 0 % (0-1); LYMPHOCYTES ABSOLUTE AUTO 0.91 K/mm3 (0.84-5.20); LYMPHOCYTES PERCENT AUTO 19 % (21-46); MONOCYTES ABSOLUTE AUTO 0.44 K/mm3 (0.16-1.47); MONOCYTES PERCENT AUTO 9 % (4-13); Mean Corpuscular HGB 31.5 pg (26.0-34.0); Mean Corpuscular Volume 98 fL (80-100); Mean Platelet Volume 12.7 fL (9.1-12.4); NEUTROPHILS ABSOLUTE AUTO 2.96 K/mm3 (1.96-9.15); NEUTROPHILS PERCENT AUTO 62 % (41-73); RDW Coefficient Variation 13.5 % (11.7-14.2); RDW Standard Deviation 49.3 fL (35.1-46.3); Red Blood Cell Count 3.43 M/mm3 (3.80-5.20); White Blood Cell Count 4.81 K/mm3 (4.00-11.30)
[2020-02-27 16:06] LABS: Platelet Count 94 K/mm3 (150-400)
== END | disposition home or self-care (01) ==
LOC: LAB RH 11:20 → EDSTATUS 11:30
PROVIDERS: Family Medicine
DX: D64.9 Anemia, unspecified (principal)
CPT/HCPCS: 85025

== ENCOUNTER → 2020-04-23 | Outpatient (CLI) | payer OTHER ==
[2020-04-23 11:17] LABS: Creatinine Urine 51.6 mg/dL (27.00-270.00); Protein, Urine Quantitative 10.9 mg/dL (0.0-11.9)
[2020-04-23 16:30] LABS: Albumin, Blood 2.7 g/dL (3.4-5.0); Albumin/Globulin Ratio 0.5 (0.8-1.8); Bilirubin, Direct 0.3 mg/dL (0.0-0.3); Bilirubin, Indirect 0.4 mg/dL (0.1-0.7); Bilirubin, Total 0.7 mg/dL (0.1-1.0); Calcium, Blood 9.3 mg/dL (8.5-10.1); Creatinine, Blood 2.31 mg/dL (0.40-1.00); Globulin, Blood 5.4 g/dL (2.2-4.0); Phosphorus, Blood 3.7 mg/dL (2.5-4.9); Potassium, Blood 3.7 mmol/L (3.5-5.5); Total Protein, Blood 8.1 g/dL (6.4-8.2)
[2020-04-23 18:56] LABS: Percent Saturation 15.1 % (15.0-50.0)
== END | disposition home or self-care (01) ==
LOC: EDSTATUS 09:32 → LAB RH 10:40
PROVIDERS: Internal Medicine Nephrology
DX: N18.4 Chronic kidney disease, stage 4 (severe) (principal); D63.1 Anemia in chronic kidney disease; N25.81 Secondary hyperparathyroidism of renal origin; E55.9 Vitamin D deficiency, unspecified; E78.00 Pure hypercholesterolemia, unspecified; D51.8 Other vitamin B12 deficiency anemias; D52.8 Other folate deficiency anemias; D50.9 Iron deficiency anemia, unspecified; R76.9 Abnormal immunological finding in serum, unspecified; R94.5 Abnormal results of liver function studies; R94.6 Abnormal results of thyroid function studies
CPT/HCPCS: 80053; 81050; 82043; 82248; 82306; 82570; 82607; 82728; 82746; 83540; 83550; 83970; 84100; 84156

== ENCOUNTER 2020-06-11 00:51 | Day surgery (SDC) | payer OTHER | END 2020-06-11 22:51 | disposition home or self-care (01) | LOC: WOUND 00:51 | DX: L98.492 Non-pressure chronic ulcer of skin of other sites with fat layer exposed (principal); E66.01 Morbid (severe) obesity due to excess calories; N18.4 Chronic kidney disease, stage 4 (severe); I50.9 Heart failure, unspecified; E03.9 Hypothyroidism, unspecified; Z87.891 Personal history of nicotine dependence; Z68.45 Body mass index [BMI] 70 or greater, adult; Z79.899 Other long term (current) drug therapy | CPT/HCPCS: 87071; 87075; 87077; 87186; 87205; G0463 ==

== ENCOUNTER → 2020-06-22 | Outpatient (CLI) | payer OTHER ==
[2020-06-22 12:12] LABS: BASOPHILS ABSOLUTE AUTO 0.03 K/mm3 (0.00-0.23); BASOPHILS PERCENT AUTO 0 % (0-2); EOSINOPHILS ABSOLUTE AUTO 0.56 K/mm3 (0.00-0.68); EOSINOPHILS PERCENT AUTO 6 % (0-6); Hematocrit 23.2 % (33.0-51.0); Hemoglobin 7.1 g/dL (11.5-16.0); IMMATURE GRAN ABSOLUTE AUTO 0.12 K/mm3 (0.00-0.10); IMMATURE GRAN PERCENT AUTO 1 % (0-1); LYMPHOCYTES ABSOLUTE AUTO 0.82 K/mm3 (0.84-5.20); LYMPHOCYTES PERCENT AUTO 9 % (21-46); MONOCYTES PERCENT AUTO 6 % (4-13); Mean Corpuscular HGB 29.6 pg (26.0-34.0); Mean Corpuscular HGB Conc 30.6 g/dL (31.5-36.5); Mean Corpuscular Volume 97 fL (80-100); Mean Platelet Volume 11.8 fL (9.1-12.4); NEUTROPHILS ABSOLUTE AUTO 7.38 K/mm3 (1.96-9.15); NEUTROPHILS PERCENT AUTO 78 % (41-73); Platelet Count 194 K/mm3 (150-400); RDW Coefficient Variation 14.4 % (11.7-14.2); RDW Standard Deviation 50.6 fL (35.1-46.3); White Blood Cell Count 9.51 K/mm3 (4.00-11.30)
[2020-06-22 12:18] LABS: Anion Gap 6 mmol/L (6-16); Blood Urea Nitrogen 60 mg/dL (8-24); Bun/Creatinine Ratio 27.3 (12.0-20.0); CO2, Blood 32 mmol/L (21-32); Calcium, Blood 8.8 mg/dL (8.5-10.1); Chloride, Blood 95 mmol/L (98-108); Glomerular Filtration Rate 24 (60-); Glucose, Blood 164 mg/dL (70-99); Phosphorus, Blood 3.8 mg/dL (2.5-4.9); Sodium, Blood 133 mmol/L (136-145)
[2020-06-22 12:20] LABS: Percent Saturation 23.8 % (15.0-50.0)
== END | disposition home or self-care (01) ==
LOC: LAB SHORT 10:40 → LAB 10:40
PROVIDERS: Internal Medicine Nephrology
DX: N18.3 Chronic kidney disease, stage 3 (moderate) (principal); D63.1 Anemia in chronic kidney disease; D50.9 Iron deficiency anemia, unspecified
CPT/HCPCS: 80069; 82728; 83540; 83550; 85025

== ENCOUNTER → 2020-07-01 | Outpatient (CLI) | payer OTHER ==
[~2020-07-01] MED LIST changes: +BUME2 PO; +EUTHYROX50 MCG PO; +Isosorbide Mono10 MG PO; +Loratadine10 MG PO; +METO25 PO; +METO5 PO; +Norco 5-325 Ta1 EACH PO; +OMEP20ER PO; +POTCHL20ER PO; +SPIR25 PO; +SPIRIVA RESPIMAT4 G2 INH; +ZINC220 PO
[2020-07-01 11:20] LABS: Anion Gap 6 mmol/L (6-16); Blood Urea Nitrogen 68 mg/dL (8-24); Bun/Creatinine Ratio 32.1 (12.0-20.0); CO2, Blood 32 mmol/L (21-32); Calcium, Blood 8.8 mg/dL (8.5-10.1); Chloride, Blood 95 mmol/L (98-108); Creatinine, Blood 2.12 mg/dL (0.40-1.00); Glomerular Filtration Rate 25 (60-); Glucose, Blood 130 mg/dL (70-99); Phosphorus, Blood 3.8 mg/dL (2.5-4.9); Potassium, Blood 4.3 mmol/L (3.5-5.5); Sodium, Blood 133 mmol/L (136-145)
== END | disposition home or self-care (01) ==
LOC: LAB RH 11:00 → EDSTATUS 15:14
PROVIDERS: Family Medicine
DX: N18.4 Chronic kidney disease, stage 4 (severe) (principal); D63.1 Anemia in chronic kidney disease
CPT/HCPCS: 80069

== ENCOUNTER 2020-07-02 00:21 | Day surgery (SDC) | payer OTHER ==
[~2020-07-02 00:21] MED LIST changes: -BUME2 PO; -EUTHYROX50 MCG PO; -Isosorbide Mono10 MG PO; -Loratadine10 MG PO; -METO25 PO; -METO5 PO; -Norco 5-325 Ta1 EACH PO; -OMEP20ER PO; -POTCHL20ER PO; -SPIR25 PO; -SPIRIVA RESPIMAT4 G2 INH; -ZINC220 PO
== END 2020-07-02 22:57 | disposition home or self-care (01) ==
LOC: WOUND 00:21
DX: L98.492 Non-pressure chronic ulcer of skin of other sites with fat layer exposed (principal); L03.311 Cellulitis of abdominal wall; E03.9 Hypothyroidism, unspecified; N18.4 Chronic kidney disease, stage 4 (severe); E66.01 Morbid (severe) obesity due to excess calories; I50.9 Heart failure, unspecified; Z68.45 Body mass index [BMI] 70 or greater, adult; Z79.899 Other long term (current) drug therapy

== ENCOUNTER → 2020-07-08 | Outpatient (CLI) | payer OTHER ==
[~2020-07-08] MED LIST changes: +BUME2 PO; +EUTHYROX50 MCG PO; +Isosorbide Mono10 MG PO; +Loratadine10 MG PO; +METO25 PO; +METO5 PO; +Norco 5-325 Ta1 EACH PO; +OMEP20ER PO; +POTCHL20ER PO; +SPIR25 PO; +SPIRIVA RESPIMAT4 G2 INH; +ZINC220 PO
[2020-07-08 21:22] LABS: Hematocrit 30.1 % (33.0-51.0); Hemoglobin 9.5 g/dL (11.5-16.0); Mean Corpuscular HGB 30.9 pg (26.0-34.0); Mean Corpuscular HGB Conc 31.6 g/dL (31.5-36.5); Mean Corpuscular Volume 98 fL (80-100); Mean Platelet Volume 11.9 fL (9.1-12.4); Platelet Count 200 K/mm3 (150-400); RDW Coefficient Variation 14.5 % (11.7-14.2); Red Blood Cell Count 3.07 M/mm3 (3.80-5.20); White Blood Cell Count 11.17 K/mm3 (4.00-11.30)
== END | disposition home or self-care (01) ==
LOC: EDSTATUS 15:16 → LAB RH 20:45
PROVIDERS: Family Medicine
DX: N18.4 Chronic kidney disease, stage 4 (severe) (principal); D63.1 Anemia in chronic kidney disease; I27.20 Pulmonary hypertension, unspecified
CPT/HCPCS: 85027

== ENCOUNTER 2020-07-16 00:25 | Day surgery (SDC) | payer OTHER | END 2020-07-16 22:40 | disposition home or self-care (01) | LOC: WOUND | DX: L98.492 Non-pressure chronic ulcer of skin of other sites with fat layer exposed (principal) ==

== ENCOUNTER → 2020-07-19 | Outpatient (CLI) | payer OTHER | END | disposition home or self-care (01) | LOC: LAB RH 09:45 → EDSTATUS 11:39 | DX: E88.09 Other disorders of plasma-protein metabolism, not elsewhere classified (principal) | CPT/HCPCS: 84134 ==

== ENCOUNTER → 2020-07-20 | Outpatient (CLI) | payer OTHER | END | disposition home or self-care (01) | LOC: LAB RH 11:23 → EDSTATUS 13:16 | DX: E83.2 Disorders of zinc metabolism (principal) | CPT/HCPCS: 84630 ==

== ENCOUNTER → 2020-07-21 | Outpatient (CLI) | payer OTHER | END | disposition home or self-care (01) | LOC: LAB RH 11:26 → EDSTATUS 13:18 | DX: N18.3 Chronic kidney disease, stage 3 (moderate) (principal); D63.1 Anemia in chronic kidney disease; E83.42 Hypomagnesemia | CPT/HCPCS: 85018 ==

== ENCOUNTER 2020-08-13 00:20 | Day surgery (SDC) | payer OTHER | END 2020-08-13 22:45 | disposition home or self-care (01) | LOC: WOUND 00:20 | DX: L98.492 Non-pressure chronic ulcer of skin of other sites with fat layer exposed (principal); N18.4 Chronic kidney disease, stage 4 (severe); E66.01 Morbid (severe) obesity due to excess calories; I50.9 Heart failure, unspecified; E03.9 Hypothyroidism, unspecified; D63.1 Anemia in chronic kidney disease; Z68.45 Body mass index [BMI] 70 or greater, adult; Z79.899 Other long term (current) drug therapy ==

== ENCOUNTER 2020-08-27 00:27 | Day surgery (SDC) | payer OTHER | END 2020-08-27 22:36 | disposition home or self-care (01) | LOC: WOUND 00:27 | DX: L98.492 Non-pressure chronic ulcer of skin of other sites with fat layer exposed (principal); R10.31 Right lower quadrant pain; N18.4 Chronic kidney disease, stage 4 (severe); I50.9 Heart failure, unspecified; E66.01 Morbid (severe) obesity due to excess calories; E03.9 Hypothyroidism, unspecified; Z68.45 Body mass index [BMI] 70 or greater, adult; Z79.899 Other long term (current) drug therapy ==

== ENCOUNTER 2020-09-17 00:51 | Day surgery (SDC) | payer OTHER | END 2020-09-17 23:42 | disposition home or self-care (01) | LOC: WOUND 00:51 | DX: S31.103A Unspecified open wound of abdominal wall, right lower quadrant without penetration into peritoneal cavity, initial encounter (principal); L08.9 Local infection of the skin and subcutaneous tissue, unspecified; I96 Gangrene, not elsewhere classified; L98.492 Non-pressure chronic ulcer of skin of other sites with fat layer exposed; E03.9 Hypothyroidism, unspecified; I13.2 Hypertensive heart and chronic kidney disease with heart failure and with stage 5 chronic kidney disease, or end stage renal disease; N18.6 End stage renal disease; I50.9 Heart failure, unspecified; D63.1 Anemia in chronic kidney disease; G47.30 Sleep apnea, unspecified; F41.8 Other specified anxiety disorders; E66.01 Morbid (severe) obesity due to excess calories; Z68.45 Body mass index [BMI] 70 or greater, adult; Z79.899 Other long term (current) drug therapy; Z51.5 Encounter for palliative care; W22.8XXA Striking against or struck by other objects, initial encounter ==

== ENCOUNTER → 2020-09-18 | Outpatient (CLI) | payer OTHER ==
[~2020-09-18] MED LIST changes: +SYMBICORT 160-4.6 GM INH; +Ventolin/Prove6.7 GM INH; +Vibramycin100 MG PO
[2020-09-18 13:49] LABS: Albumin, Blood 2.5 g/dL (3.4-5.0); Anion Gap 4 mmol/L (6-16); Blood Urea Nitrogen 50 mg/dL (8-24); Bun/Creatinine Ratio 24.3 (12.0-20.0); CO2, Blood 35 mmol/L (21-32); Calcium, Blood 9.4 mg/dL (8.5-10.1); Chloride, Blood 100 mmol/L (98-108); Creatinine, Blood 2.06 mg/dL (0.40-1.00); Glomerular Filtration Rate 26 (60-); Glucose, Blood 106 mg/dL (70-99); Phosphorus, Blood 4.3 mg/dL (2.5-4.9); Potassium, Blood 4.7 mmol/L (3.5-5.5); Sodium, Blood 139 mmol/L (136-145)
== END | disposition home or self-care (01) ==
LOC: EDSTATUS 11:37 → LAB RH 13:10
PROVIDERS: Family Medicine
DX: I13.0 Hypertensive heart and chronic kidney disease with heart failure and stage 1 through stage 4 chronic kidney disease, or unspecified chronic kidney disease (principal); I50.32 Chronic diastolic (congestive) heart failure; N18.4 Chronic kidney disease, stage 4 (severe); D63.1 Anemia in chronic kidney disease
CPT/HCPCS: 80069; 85018

== ENCOUNTER 2020-09-22 21:39 | Emergency (ER) | payer OTHER ==
[~2020-09-22] VITALS: Ht 154.9 cm; Wt 170.1 kg
[~2020-09-22 21:39] MED LIST changes: -SYMBICORT 160-4.6 GM INH; -Ventolin/Prove6.7 GM INH; -Vibramycin100 MG PO
[2020-09-22] MEDS ORDERED: SENN187 PO (22:07)
[2020-09-22] MEDS ORDERED: SYMBICORT 160-4.6 GM INH (22:08)
[2020-09-22] MEDS ORDERED: ACET325 PO (22:09)
[2020-09-22] MEDS ORDERED: Ventolin/Prove6.7 GM INH (22:10)
[2020-09-22] MEDS ORDERED: Vibramycin100 MG PO (23:08)
== END 2020-09-23 00:18 | disposition home or self-care (01) ==
LOC: ER 21:39
DX: L03.311 Cellulitis of abdominal wall (principal); I12.9 Hypertensive chronic kidney disease with stage 1 through stage 4 chronic kidney disease, or unspecified chronic kidney disease; N18.9 Chronic kidney disease, unspecified; E03.9 Hypothyroidism, unspecified; E66.01 Morbid (severe) obesity due to excess calories; Z68.45 Body mass index [BMI] 70 or greater, adult; Z87.891 Personal history of nicotine dependence; Z79.899 Other long term (current) drug therapy; Z79.51 Long term (current) use of inhaled steroids
CPT/HCPCS: 36415; 99283

== ENCOUNTER 2020-09-24 00:33 | Day surgery (SDC) | payer OTHER ==
[~2020-09-24 00:33] MED LIST changes: +SYMBICORT 160-4.6 GM INH; +Ventolin/Prove6.7 GM INH; +Vibramycin100 MG PO
== END 2020-09-24 23:13 | disposition home or self-care (01) ==
LOC: WOUND 00:33
DX: L98.492 Non-pressure chronic ulcer of skin of other sites with fat layer exposed (principal); R10.31 Right lower quadrant pain; N18.4 Chronic kidney disease, stage 4 (severe); E03.9 Hypothyroidism, unspecified; I50.9 Heart failure, unspecified; E66.01 Morbid (severe) obesity due to excess calories; Z68.45 Body mass index [BMI] 70 or greater, adult; Z79.899 Other long term (current) drug therapy
CPT/HCPCS: G0463

== ENCOUNTER → 2020-09-28 | Outpatient (CLI) | payer OTHER ==
[2020-09-28 15:24] LABS: Hematocrit 29.7 % (33.0-51.0); Hemoglobin 8.9 g/dL (11.5-16.0); Mean Corpuscular HGB 27.6 pg (26.0-34.0); Mean Corpuscular Volume 92 fL (80-100); Mean Platelet Volume 12.5 fL (9.1-12.4); Platelet Count 192 K/mm3 (150-400); RDW Coefficient Variation 14.2 % (11.7-14.2); Red Blood Cell Count 3.23 M/mm3 (3.80-5.20)
[2020-09-28 15:57] LABS: Albumin/Globulin Ratio 0.4 (0.8-1.8); Bilirubin, Total 0.5 mg/dL (0.1-1.0); Bun/Creatinine Ratio 23.7 (12.0-20.0); Calcium, Blood 9.3 mg/dL (8.5-10.1); Creatinine, Blood 2.15 mg/dL (0.40-1.00); Globulin, Blood 4.5 g/dL (2.2-4.0); Potassium, Blood 4.6 mmol/L (3.5-5.5); Total Protein, Blood 6.5 g/dL (6.4-8.2)
== END | disposition home or self-care (01) ==
LOC: EDSTATUS 11:38 → LAB RH 14:01
PROVIDERS: Family Medicine
DX: N18.4 Chronic kidney disease, stage 4 (severe) (principal)
CPT/HCPCS: 80053; 85027

== ENCOUNTER 2020-10-01 01:11 | Day surgery (SDC) | payer OTHER | END 2020-10-01 23:05 | disposition home or self-care (01) | LOC: WOUND 01:11 | DX: L98.492 Non-pressure chronic ulcer of skin of other sites with fat layer exposed (principal); I96 Gangrene, not elsewhere classified; E03.9 Hypothyroidism, unspecified; E66.01 Morbid (severe) obesity due to excess calories; I13.2 Hypertensive heart and chronic kidney disease with heart failure and with stage 5 chronic kidney disease, or end stage renal disease; N18.6 End stage renal disease; I50.9 Heart failure, unspecified; D63.1 Anemia in chronic kidney disease; F41.8 Other specified anxiety disorders; I27.20 Pulmonary hypertension, unspecified; G47.30 Sleep apnea, unspecified; Z68.45 Body mass index [BMI] 70 or greater, adult; Z79.899 Other long term (current) drug therapy; Z51.5 Encounter for palliative care | CPT/HCPCS: G0463 ==

== ENCOUNTER 2020-10-08 02:00 | Day surgery (SDC) | payer OTHER | END 2020-10-08 23:15 | disposition home or self-care (01) | LOC: WOUND 02:00 | DX: L98.492 Non-pressure chronic ulcer of skin of other sites with fat layer exposed (principal); I96 Gangrene, not elsewhere classified; E03.9 Hypothyroidism, unspecified; I13.2 Hypertensive heart and chronic kidney disease with heart failure and with stage 5 chronic kidney disease, or end stage renal disease; N18.6 End stage renal disease; I50.9 Heart failure, unspecified; D63.1 Anemia in chronic kidney disease; F41.8 Other specified anxiety disorders; G47.30 Sleep apnea, unspecified; E66.01 Morbid (severe) obesity due to excess calories; Z68.45 Body mass index [BMI] 70 or greater, adult; Z51.5 Encounter for palliative care; Z79.899 Other long term (current) drug therapy | CPT/HCPCS: G0463 ==

== ENCOUNTER 2020-10-22 00:19 | Day surgery (SDC) | payer OTHER | END 2020-10-22 22:50 | disposition home or self-care (01) | LOC: WOUND 00:19 | DX: L98.492 Non-pressure chronic ulcer of skin of other sites with fat layer exposed (principal); R10.31 Right lower quadrant pain; I13.0 Hypertensive heart and chronic kidney disease with heart failure and stage 1 through stage 4 chronic kidney disease, or unspecified chronic kidney disease; N18.4 Chronic kidney disease, stage 4 (severe); E66.01 Morbid (severe) obesity due to excess calories; Z68.45 Body mass index [BMI] 70 or greater, adult; Z79.899 Other long term (current) drug therapy | CPT/HCPCS: G0463 ==

== ENCOUNTER → 2020-10-31 | Outpatient (CLI) | payer OTHER ==
[2020-10-31 14:01] LABS: Percent Saturation 17.8 % (15.0-50.0)
[2020-10-31 14:36] LABS: Albumin, Blood 2.8 g/dL (3.4-5.0); Anion Gap 10 mmol/L (6-16); Blood Urea Nitrogen 65 mg/dL (8-24); Bun/Creatinine Ratio 31.1 (12.0-20.0); CO2, Blood 25 mmol/L (21-32); Calcium, Blood 9.8 mg/dL (8.5-10.1); Chloride, Blood 100 mmol/L (98-108); Creatinine, Blood 2.09 mg/dL (0.40-1.00); Glomerular Filtration Rate 25 (60-); Glucose, Blood 138 mg/dL (70-99); Phosphorus, Blood 4.6 mg/dL (2.5-4.9); Potassium, Blood 4.6 mmol/L (3.5-5.5); Sodium, Blood 135 mmol/L (136-145)
== END | disposition home or self-care (01) ==
LOC: LAB RH 11:55
PROVIDERS: Family Medicine
DX: N18.30 Chronic kidney disease, stage 3 unspecified (principal); D63.1 Anemia in chronic kidney disease; D50.9 Iron deficiency anemia, unspecified
CPT/HCPCS: 80069; 82728; 83540; 83550; 85018

== ENCOUNTER 2020-11-05 00:20 | Day surgery (SDC) | payer OTHER | END 2020-11-05 23:38 | disposition home or self-care (01) | LOC: WOUND 00:20 | DX: L98.492 Non-pressure chronic ulcer of skin of other sites with fat layer exposed (principal); R10.31 Right lower quadrant pain; N18.4 Chronic kidney disease, stage 4 (severe); E66.01 Morbid (severe) obesity due to excess calories; E03.9 Hypothyroidism, unspecified; I50.9 Heart failure, unspecified; Z68.45 Body mass index [BMI] 70 or greater, adult; Z79.899 Other long term (current) drug therapy | CPT/HCPCS: G0463 ==

== ENCOUNTER 2020-12-06 01:39 | Day surgery (SDC) | payer OTHER | END 2020-12-06 22:36 | disposition home or self-care (01) | LOC: WOUND 01:39 | DX: L98.492 Non-pressure chronic ulcer of skin of other sites with fat layer exposed (principal); R10.31 Right lower quadrant pain; E03.9 Hypothyroidism, unspecified; N18.4 Chronic kidney disease, stage 4 (severe); E66.01 Morbid (severe) obesity due to excess calories; I50.9 Heart failure, unspecified; I27.20 Pulmonary hypertension, unspecified | CPT/HCPCS: A9270; G0463 ==

== ENCOUNTER 2020-12-20 00:18 | Day surgery (SDC) | payer OTHER | END 2020-12-20 23:45 | disposition home or self-care (01) | LOC: WOUND 00:18 | DX: L98.492 Non-pressure chronic ulcer of skin of other sites with fat layer exposed (principal); N18.4 Chronic kidney disease, stage 4 (severe); I50.9 Heart failure, unspecified; I27.20 Pulmonary hypertension, unspecified; E66.01 Morbid (severe) obesity due to excess calories; Z68.45 Body mass index [BMI] 70 or greater, adult | CPT/HCPCS: A9270 ==

== ENCOUNTER → 2020-12-28 | Outpatient (CLI) | payer OTHER | END | disposition home or self-care (01) | LOC: LAB RH 09:45 → EDSTATUS 11:02 | DX: N18.30 Chronic kidney disease, stage 3 unspecified (principal) | CPT/HCPCS: 85018 ==

== ENCOUNTER → 2021-01-07 | Outpatient (CLI) | payer OTHER ==
[2021-01-07 10:01] LABS: Hematocrit 35.3 % (33.0-51.0); Hemoglobin 11.4 g/dL (11.5-16.0); Mean Corpuscular HGB 28.9 pg (26.0-34.0); Mean Corpuscular HGB Conc 32.3 g/dL (31.5-36.5); Mean Corpuscular Volume 89 fL (80-100); Platelet Count 68 K/mm3 (150-400); RDW Coefficient Variation 13.7 % (11.7-14.2); RDW Standard Deviation 45.1 fL (35.1-46.3); Red Blood Cell Count 3.95 M/mm3 (3.80-5.20); White Blood Cell Count 14.21 K/mm3 (4.00-11.30)
[2021-01-07 10:06] LABS: Mean Platelet Volume 14.1 fL (9.1-12.4)
[2021-01-07 10:13] LABS: Bun/Creatinine Ratio 26.4 (12.0-20.0); Calcium, Blood 10.2 mg/dL (8.5-10.1); Creatinine, Blood 3.87 mg/dL (0.40-1.00)
[2021-01-07 14:17] LABS: Source, Urine Catheter
[2021-01-07 14:51] LABS: Bilirubin, Urine Neg (Neg); Blood, Urine 3+ (Neg); Glucose Qualitative, Urine Neg (Neg); Ketones, Urine Neg (Neg); Leukocyte Esterase, Urine 3+ (Neg); Nitrite, Urine Pos (Neg); Protein, Urine 2+ (Neg); Urobilinogen, Urine NORM (Normal)
[2021-01-07 15:02] LABS: Appearance, Urine Hazy (Clear); Color, Urine Yellow (P-Yellow)
[2021-01-07 15:04] LABS: Bacteria Mod /hpf; Red Blood Cells, Urine 0-2 /hpf (0-2); Squamous Epithelial Cells Rare /hpf (Few); White Blood Cells, Urine TNTC /hpf (0-5)
== END | disposition home or self-care (01) ==
LOC: LAB RH 07:10 → EDSTATUS 11:02
PROVIDERS: Family Medicine
DX: N18.4 Chronic kidney disease, stage 4 (severe) (principal); N39.0 Urinary tract infection, site not specified
CPT/HCPCS: 80048; 81001; 85027; 87077; 87086; 87186

== ENCOUNTER → 2021-01-08 | Outpatient (CLI) | payer OTHER ==
[2021-01-08 11:12] LABS: BASOPHILS ABSOLUTE AUTO 0.03 K/mm3 (0.00-0.23); BASOPHILS PERCENT AUTO 0 % (0-2); EOSINOPHILS ABSOLUTE AUTO 0.02 K/mm3 (0.00-0.68); EOSINOPHILS PERCENT AUTO 0 % (0-6); Hematocrit 32.7 % (33.0-51.0); Hemoglobin 10.8 g/dL (11.5-16.0); IMMATURE GRAN ABSOLUTE AUTO 0.04 K/mm3 (0.00-0.10); IMMATURE GRAN PERCENT AUTO 0 % (0-1); LYMPHOCYTES ABSOLUTE AUTO 0.45 K/mm3 (0.84-5.20); LYMPHOCYTES PERCENT AUTO 5 % (21-46); MONOCYTES ABSOLUTE AUTO 1.06 K/mm3 (0.16-1.47); MONOCYTES PERCENT AUTO 12 % (4-13); Mean Corpuscular HGB 29.3 pg (26.0-34.0); Mean Corpuscular Volume 89 fL (80-100); NEUTROPHILS ABSOLUTE AUTO 7.47 K/mm3 (1.96-9.15); NEUTROPHILS PERCENT AUTO 82 % (41-73); Platelet Count 65 K/mm3 (150-400); RDW Coefficient Variation 13.4 % (11.7-14.2); RDW Standard Deviation 44.5 fL (35.1-46.3); Red Blood Cell Count 3.69 M/mm3 (3.80-5.20); White Blood Cell Count 9.07 K/mm3 (4.00-11.30)
[2021-01-08 11:27] LABS: Mean Platelet Volume 13.9 fL (9.1-12.4)
[2021-01-08 11:40] LABS: Albumin/Globulin Ratio 0.4 (0.8-1.8); Bilirubin, Total 0.9 mg/dL (0.1-1.0); Bun/Creatinine Ratio 29.2 (12.0-20.0); Calcium, Blood 9.9 mg/dL (8.5-10.1); Creatinine, Blood 3.36 mg/dL (0.40-1.00); Globulin, Blood 4.5 g/dL (2.2-4.0); Total Protein, Blood 6.5 g/dL (6.4-8.2)
== END | disposition home or self-care (01) ==
LOC: LAB RH 09:48 → EDSTATUS 11:03
PROVIDERS: Family Medicine
DX: N18.4 Chronic kidney disease, stage 4 (severe) (principal); D63.1 Anemia in chronic kidney disease
CPT/HCPCS: 80053; 85025

== ENCOUNTER → 2021-01-09 | Outpatient (CLI) | payer OTHER ==
[2021-01-09 11:42] LABS: Bun/Creatinine Ratio 30.5 (12.0-20.0); Calcium, Blood 10.2 mg/dL (8.5-10.1); Creatinine, Blood 3.21 mg/dL (0.40-1.00)
== END ==
LOC: LAB RH 08:58 → EDSTATUS 11:04
PROVIDERS: Family Medicine
DX: N18.4 Chronic kidney disease, stage 4 (severe) (principal)
CPT/HCPCS: 80048

== ENCOUNTER → 2021-01-14 | Outpatient (CLI) | payer OTHER ==
[2021-01-14 10:53] LABS: Bun/Creatinine Ratio 31.8 (12.0-20.0); Calcium, Blood 9.3 mg/dL (8.5-10.1); Creatinine, Blood 2.8 mg/dL (0.40-1.00); Potassium, Blood 4.5 mmol/L (3.5-5.5); Thyroid Stimulating Hormone 3.52 uIU/mL (0.360-4.800)
== END | disposition home or self-care (01) ==
LOC: LAB RH 07:00 → EDSTATUS 13:35
PROVIDERS: Family Medicine
DX: E03.9 Hypothyroidism, unspecified (principal)
CPT/HCPCS: 80048; 84443

== ENCOUNTER → 2021-01-30 | Outpatient (CLI) | payer OTHER ==
[2021-01-30 10:47] LABS: BASOPHILS ABSOLUTE AUTO 0.03 K/mm3 (0.00-0.23); BASOPHILS PERCENT AUTO 0 % (0-2); EOSINOPHILS ABSOLUTE AUTO 0.33 K/mm3 (0.00-0.68); EOSINOPHILS PERCENT AUTO 3 % (0-6); Hematocrit 31.5 % (33.0-51.0); Hemoglobin 10.5 g/dL (11.5-16.0); IMMATURE GRAN ABSOLUTE AUTO 0.04 K/mm3 (0.00-0.10); IMMATURE GRAN PERCENT AUTO 0 % (0-1); LYMPHOCYTES ABSOLUTE AUTO 0.91 K/mm3 (0.84-5.20); LYMPHOCYTES PERCENT AUTO 9 % (21-46); MONOCYTES ABSOLUTE AUTO 0.55 K/mm3 (0.16-1.47); MONOCYTES PERCENT AUTO 5 % (4-13); Mean Corpuscular HGB 31.1 pg (26.0-34.0); Mean Corpuscular HGB Conc 33.3 g/dL (31.5-36.5); Mean Corpuscular Volume 93 fL (80-100); Mean Platelet Volume 12.7 fL (9.1-12.4); NEUTROPHILS ABSOLUTE AUTO 8.87 K/mm3 (1.96-9.15); NEUTROPHILS PERCENT AUTO 83 % (41-73); Platelet Count 143 K/mm3 (150-400); RDW Coefficient Variation 14.5 % (11.7-14.2); RDW Standard Deviation 48.8 fL (35.1-46.3); Red Blood Cell Count 3.38 M/mm3 (3.80-5.20); White Blood Cell Count 10.73 K/mm3 (4.00-11.30)
== END | disposition home or self-care (01) ==
LOC: LAB RH 10:01 → EDSTATUS 13:36
PROVIDERS: Family Medicine
DX: N18.4 Chronic kidney disease, stage 4 (severe) (principal)
CPT/HCPCS: 85025

== ENCOUNTER 2021-02-14 00:25 | Day surgery (SDC) | payer OTHER | END 2021-02-14 22:47 | disposition home or self-care (01) | LOC: WOUND 00:25 | DX: L98.492 Non-pressure chronic ulcer of skin of other sites with fat layer exposed (principal); E03.9 Hypothyroidism, unspecified; N18.4 Chronic kidney disease, stage 4 (severe); E66.01 Morbid (severe) obesity due to excess calories; I50.9 Heart failure, unspecified; I27.20 Pulmonary hypertension, unspecified; Z68.45 Body mass index [BMI] 70 or greater, adult | CPT/HCPCS: A9270 ==

== ENCOUNTER 2021-02-21 00:21 | Day surgery (SDC) | payer OTHER | END 2021-02-21 22:51 | disposition home or self-care (01) | LOC: WOUND 00:21 | DX: L98.492 Non-pressure chronic ulcer of skin of other sites with fat layer exposed (principal); R10.31 Right lower quadrant pain; E03.9 Hypothyroidism, unspecified; E66.01 Morbid (severe) obesity due to excess calories; N18.4 Chronic kidney disease, stage 4 (severe); I50.9 Heart failure, unspecified | CPT/HCPCS: A9270 ==

== ENCOUNTER 2021-02-28 00:13 | Day surgery (SDC) | payer OTHER | END 2021-02-28 22:40 | disposition home or self-care (01) | LOC: WOUND 00:13 | DX: L98.492 Non-pressure chronic ulcer of skin of other sites with fat layer exposed (principal); R10.31 Right lower quadrant pain | CPT/HCPCS: G0463 ==

== ENCOUNTER 2021-03-07 00:28 | Day surgery (SDC) | payer OTHER | END 2021-03-07 23:14 | disposition home or self-care (01) | LOC: WOUND 00:28 | DX: L98.492 Non-pressure chronic ulcer of skin of other sites with fat layer exposed (principal); R10.31 Right lower quadrant pain; E03.9 Hypothyroidism, unspecified; E66.01 Morbid (severe) obesity due to excess calories; I13.0 Hypertensive heart and chronic kidney disease with heart failure and stage 1 through stage 4 chronic kidney disease, or unspecified chronic kidney disease; I50.9 Heart failure, unspecified; N18.4 Chronic kidney disease, stage 4 (severe) | CPT/HCPCS: A9270 ==

== ENCOUNTER 2021-03-21 01:52 | Day surgery (SDC) | payer OTHER | END 2021-03-21 22:56 | disposition home or self-care (01) | LOC: WOUND 01:52 | DX: L98.492 Non-pressure chronic ulcer of skin of other sites with fat layer exposed (principal); R10.31 Right lower quadrant pain; E03.9 Hypothyroidism, unspecified; I50.9 Heart failure, unspecified; N18.4 Chronic kidney disease, stage 4 (severe); E66.01 Morbid (severe) obesity due to excess calories | CPT/HCPCS: A9270 ==

== ENCOUNTER → 2021-03-25 | Outpatient (CLI) | payer OTHER ==
[2021-03-25 15:51] LABS: Albumin, Blood 3.5 g/dL (3.4-5.0); Anion Gap 7 mmol/L (6-16); Blood Urea Nitrogen 109 mg/dL (8-24); Bun/Creatinine Ratio 36.7 (12.0-20.0); CO2, Blood 32 mmol/L (21-32); Calcium, Blood 10.6 mg/dL (8.5-10.1); Chloride, Blood 97 mmol/L (98-108); Creatinine, Blood 2.97 mg/dL (0.40-1.00); Glomerular Filtration Rate 17 (60-); Glucose, Blood 158 mg/dL (70-99); Phosphorus, Blood 4.2 mg/dL (2.5-4.9); Potassium, Blood 4.3 mmol/L (3.5-5.5); Sodium, Blood 136 mmol/L (136-145)
== END | disposition home or self-care (01) ==
LOC: EDSTATUS 13:07 → LAB RH 14:00
PROVIDERS: Internal Medicine Nephrology
DX: N18.4 Chronic kidney disease, stage 4 (severe) (principal); D63.1 Anemia in chronic kidney disease; N25.81 Secondary hyperparathyroidism of renal origin; E55.9 Vitamin D deficiency, unspecified; E78.00 Pure hypercholesterolemia, unspecified; R76.9 Abnormal immunological finding in serum, unspecified; R94.5 Abnormal results of liver function studies; R94.6 Abnormal results of thyroid function studies
CPT/HCPCS: 80069; 82306; 84443; 85018

== ENCOUNTER → 2021-04-02 | Outpatient (CLI) | payer OTHER ==
[2021-04-02 15:45] LABS: Bun/Creatinine Ratio 23.3 (12.0-20.0); Calcium, Blood 10.4 mg/dL (8.5-10.1); Creatinine, Blood 3.3 mg/dL (0.40-1.00)
== END | disposition home or self-care (01) ==
LOC: EDSTATUS 13:08 → LAB RH 13:48
PROVIDERS: Family Medicine
DX: N18.4 Chronic kidney disease, stage 4 (severe) (principal)
CPT/HCPCS: 80048

== ENCOUNTER → 2021-04-03 | Outpatient (CLI) | payer OTHER | END | disposition home or self-care (01) | LOC: LAB RH 09:00 → EDSTATUS 13:09 | DX: N64.9 Disorder of breast, unspecified (principal) | CPT/HCPCS: 82310 ==

== ENCOUNTER 2021-04-04 00:26 | Day surgery (SDC) | payer OTHER | END 2021-04-04 22:50 | disposition home or self-care (01) | LOC: WOUND 00:26 | DX: L98.492 Non-pressure chronic ulcer of skin of other sites with fat layer exposed (principal); R10.31 Right lower quadrant pain; E03.9 Hypothyroidism, unspecified; I27.20 Pulmonary hypertension, unspecified; I13.2 Hypertensive heart and chronic kidney disease with heart failure and with stage 5 chronic kidney disease, or end stage renal disease; I50.9 Heart failure, unspecified; N18.4 Chronic kidney disease, stage 4 (severe); E66.01 Morbid (severe) obesity due to excess calories | CPT/HCPCS: 87070; 87075; 87205; A9270 ==

== ENCOUNTER → 2021-04-04 | Outpatient (CLI) | payer OTHER ==
[2021-04-04 22:41] LABS: Source, Urine Clean Catch
[2021-04-04 22:47] LABS: Appearance, Urine Cloudy (Clear); Bilirubin, Urine Neg (Neg); Blood, Urine 2+ (Neg); Color, Urine Yellow (P-Yellow); Glucose Qualitative, Urine Neg (Neg); Ketones, Urine Neg (Neg); Leukocyte Esterase, Urine 3+ (Neg); Nitrite, Urine Pos (Neg); Protein, Urine 2+ (Neg); Specific Gravity, Urine 1.015 (1.003-1.022); Urobilinogen, Urine NORM (Normal)
[2021-04-04 22:52] LABS: Bacteria Many /hpf; Squamous Epithelial Cells Mod /hpf (Few); White Blood Cells, Urine TNTC /hpf (0-5)
== END ==
LOC: EDSTATUS 13:10 → LAB RH 21:00
PROVIDERS: Family Medicine
DX: N39.0 Urinary tract infection, site not specified (principal); N18.4 Chronic kidney disease, stage 4 (severe)
CPT/HCPCS: 81001; 87077; 87086; 87186

== ENCOUNTER → 2021-04-08 | Outpatient (CLI) | payer OTHER ==
[2021-04-08 13:11] LABS: Albumin, Blood 2.7 g/dL (3.4-5.0); Anion Gap 7 mmol/L (6-16); Blood Urea Nitrogen 73 mg/dL (8-24); Bun/Creatinine Ratio 25.2 (12.0-20.0); CO2, Blood 28 mmol/L (21-32); Calcium, Blood 9.3 mg/dL (8.5-10.1); Chloride, Blood 100 mmol/L (98-108); Glomerular Filtration Rate 17 (60-); Glucose, Blood 185 mg/dL (70-99); Phosphorus, Blood 4.5 mg/dL (2.5-4.9); Potassium, Blood 3.8 mmol/L (3.5-5.5); Sodium, Blood 135 mmol/L (136-145)
== END | disposition home or self-care (01) ==
LOC: EDSTATUS 10:38 → LAB RH 10:42
PROVIDERS: Family Medicine
DX: N18.4 Chronic kidney disease, stage 4 (severe) (principal); D63.1 Anemia in chronic kidney disease; E66.01 Morbid (severe) obesity due to excess calories
CPT/HCPCS: 80069; 84443; 85018

== ENCOUNTER → 2021-04-16 | Outpatient (CLI) | payer OTHER ==
[2021-04-16 15:46] LABS: Albumin, Blood 2.9 g/dL (3.4-5.0); Anion Gap 3 mmol/L (6-16); Blood Urea Nitrogen 58 mg/dL (8-24); CO2, Blood 32 mmol/L (21-32); Calcium, Blood 10.4 mg/dL (8.5-10.1); Chloride, Blood 104 mmol/L (98-108); Creatinine, Blood 2.42 mg/dL (0.40-1.00); Glomerular Filtration Rate 21 (60-); Glucose, Blood 123 mg/dL (70-99); Phosphorus, Blood 4.2 mg/dL (2.5-4.9); Potassium, Blood 4.8 mmol/L (3.5-5.5); Sodium, Blood 139 mmol/L (136-145)
[2021-04-17 00:47] LABS: C DIFFICILE DNA NEGATIVE (Negative)
== END ==
LOC: EDSTATUS 09:46 → LAB RH 14:45
PROVIDERS: Family Medicine
DX: N18.4 Chronic kidney disease, stage 4 (severe) (principal); D63.1 Anemia in chronic kidney disease; E03.9 Hypothyroidism, unspecified; I50.32 Chronic diastolic (congestive) heart failure; A04.71 Enterocolitis due to Clostridium difficile, recurrent
CPT/HCPCS: 80069; 84443; 85018; 87493

== ENCOUNTER 2021-04-18 05:28 | Day surgery (SDC) | payer OTHER | END 2021-04-18 22:35 | disposition home or self-care (01) | LOC: WOUND 05:28 | DX: L98.492 Non-pressure chronic ulcer of skin of other sites with fat layer exposed (principal); E03.9 Hypothyroidism, unspecified; I13.0 Hypertensive heart and chronic kidney disease with heart failure and stage 1 through stage 4 chronic kidney disease, or unspecified chronic kidney disease; I50.9 Heart failure, unspecified; N18.4 Chronic kidney disease, stage 4 (severe); E66.01 Morbid (severe) obesity due to excess calories; I27.20 Pulmonary hypertension, unspecified | CPT/HCPCS: A9270 ==

== ENCOUNTER 2021-04-25 03:46 | Day surgery (SDC) | payer OTHER | END 2021-04-25 22:45 | disposition home or self-care (01) | LOC: WOUND 03:46 | DX: L98.492 Non-pressure chronic ulcer of skin of other sites with fat layer exposed (principal); E03.9 Hypothyroidism, unspecified; E66.01 Morbid (severe) obesity due to excess calories; I13.0 Hypertensive heart and chronic kidney disease with heart failure and stage 1 through stage 4 chronic kidney disease, or unspecified chronic kidney disease; I50.9 Heart failure, unspecified; N18.9 Chronic kidney disease, unspecified | CPT/HCPCS: A9270 ==

== ENCOUNTER 2021-05-02 04:03 | Day surgery (SDC) | payer OTHER | END 2021-05-02 23:12 | disposition home or self-care (01) | LOC: WOUND 04:03 | DX: L98.492 Non-pressure chronic ulcer of skin of other sites with fat layer exposed (principal) | CPT/HCPCS: A9270 ==

== ENCOUNTER → 2021-05-07 | Outpatient (CLI) | payer OTHER ==
[2021-05-07 14:11] LABS: Albumin, Blood 2.9 g/dL (3.4-5.0); Anion Gap 6 mmol/L (6-16); Blood Urea Nitrogen 51 mg/dL (8-24); CO2, Blood 25 mmol/L (21-32); Calcium, Blood 9.2 mg/dL (8.5-10.1); Chloride, Blood 105 mmol/L (98-108); Creatinine, Blood 2.43 mg/dL (0.40-1.00); Glomerular Filtration Rate 21 (60-); Glucose, Blood 100 mg/dL (70-99); Phosphorus, Blood 4.2 mg/dL (2.5-4.9); Potassium, Blood 4.5 mmol/L (3.5-5.5); Sodium, Blood 136 mmol/L (136-145)
== END | disposition home or self-care (01) ==
LOC: EDSTATUS 10:03 → LAB RH 12:37
PROVIDERS: Internal Medicine
DX: N18.4 Chronic kidney disease, stage 4 (severe) (principal)
CPT/HCPCS: 80069

== ENCOUNTER → 2021-05-09 | Outpatient (CLI) | payer OTHER ==
[2021-05-09 14:19] LABS: C DIFFICILE DNA NEGATIVE (Negative)
== END | disposition home or self-care (01) ==
LOC: EDSTATUS 10:05 → LAB RH 12:28
PROVIDERS: Internal Medicine
DX: A04.72 Enterocolitis due to Clostridium difficile, not specified as recurrent (principal)
CPT/HCPCS: 87493

== ENCOUNTER 2021-05-16 02:28 | Day surgery (SDC) | payer OTHER | END 2021-05-16 23:09 | disposition home or self-care (01) | LOC: WOUND 02:28 | DX: L98.492 Non-pressure chronic ulcer of skin of other sites with fat layer exposed (principal); E03.9 Hypothyroidism, unspecified; N18.4 Chronic kidney disease, stage 4 (severe); I50.9 Heart failure, unspecified; E66.01 Morbid (severe) obesity due to excess calories; Z68.45 Body mass index [BMI] 70 or greater, adult; I27.20 Pulmonary hypertension, unspecified; Z74.09 Other reduced mobility | CPT/HCPCS: A9270 ==

== ENCOUNTER → 2021-05-17 | Outpatient (CLI) | payer OTHER ==
[2021-05-17 13:53] LABS: Source, Urine Catheter
[2021-05-17 15:12] LABS: Appearance, Urine Clear (Clear); Bilirubin, Urine Neg (Neg); Blood, Urine 2+ (Neg); Color, Urine Yellow (P-Yellow); Glucose Qualitative, Urine Neg (Neg); Ketones, Urine Neg (Neg); Leukocyte Esterase, Urine 3+ (Neg); Nitrite, Urine Neg (Neg); Protein, Urine 1+ (Neg); Specific Gravity, Urine 1.015 (1.003-1.022); Urobilinogen, Urine NORM (Normal)
[2021-05-17 15:57] LABS: White Blood Cells, Urine 50-100 /hpf (0-5)
[2021-05-17 15:58] LABS: Bacteria Few /hpf; Squamous Epithelial Cells Rare /hpf (Few)
== END ==
LOC: EDSTATUS 09:16 → LAB RH 13:51
PROVIDERS: Internal Medicine
DX: N39.0 Urinary tract infection, site not specified (principal)
CPT/HCPCS: 81001; 87077; 87086; 87186

== ENCOUNTER → 2021-05-18 | Outpatient (CLI) | payer OTHER | LOC: EDSTATUS 09:18 → LAB RH 10:41 | DX: N18.4 Chronic kidney disease, stage 4 (severe) (principal); I50.32 Chronic diastolic (congestive) heart failure; D69.6 Thrombocytopenia, unspecified; D63.1 Anemia in chronic kidney disease | CPT/HCPCS: 82306; 83735; 85018 ==

== ENCOUNTER 2021-05-30 00:31 | Day surgery (SDC) | payer OTHER | END 2021-05-30 22:40 | disposition home or self-care (01) | LOC: WOUND 00:31 | DX: L98.492 Non-pressure chronic ulcer of skin of other sites with fat layer exposed (principal); E03.9 Hypothyroidism, unspecified; I13.0 Hypertensive heart and chronic kidney disease with heart failure and stage 1 through stage 4 chronic kidney disease, or unspecified chronic kidney disease; I50.9 Heart failure, unspecified; N18.4 Chronic kidney disease, stage 4 (severe); I27.20 Pulmonary hypertension, unspecified | CPT/HCPCS: A9270 ==

== ENCOUNTER 2021-06-13 08:00 | Day surgery (SDC) | payer OTHER | END 2021-06-13 23:59 | disposition home or self-care (01) | LOC: WOUND | DX: L98.492 Non-pressure chronic ulcer of skin of other sites with fat layer exposed (principal) | CPT/HCPCS: 87070; 87075; 87205; A9270; G0463 ==

== ENCOUNTER 2021-06-20 02:04 | Day surgery (SDC) | payer OTHER | END 2021-06-20 23:00 | disposition home or self-care (01) | LOC: WOUND 02:04 | DX: L98.492 Non-pressure chronic ulcer of skin of other sites with fat layer exposed (principal) | CPT/HCPCS: A9270; G0463 ==

== ENCOUNTER 2021-06-27 08:00 | Day surgery (SDC) | payer OTHER | END 2021-06-27 23:59 | disposition home or self-care (01) | LOC: WOUND 08:00 | DX: L98.492 Non-pressure chronic ulcer of skin of other sites with fat layer exposed (principal) | CPT/HCPCS: G0463 ==

== ENCOUNTER 2021-07-11 01:57 | Day surgery (SDC) | payer OTHER | END 2021-07-11 23:16 | disposition home or self-care (01) | LOC: WOUND 01:57 | DX: L98.492 Non-pressure chronic ulcer of skin of other sites with fat layer exposed (principal); E03.9 Hypothyroidism, unspecified; N18.4 Chronic kidney disease, stage 4 (severe); I50.9 Heart failure, unspecified; E66.01 Morbid (severe) obesity due to excess calories; Z68.45 Body mass index [BMI] 70 or greater, adult | CPT/HCPCS: G0463 ==

== ENCOUNTER 2021-07-25 01:39 | Day surgery (SDC) | payer OTHER | END 2021-07-25 23:01 | disposition home or self-care (01) | LOC: WOUND 01:39 | DX: L98.492 Non-pressure chronic ulcer of skin of other sites with fat layer exposed (principal); I13.0 Hypertensive heart and chronic kidney disease with heart failure and stage 1 through stage 4 chronic kidney disease, or unspecified chronic kidney disease; I50.9 Heart failure, unspecified; N18.4 Chronic kidney disease, stage 4 (severe); E03.9 Hypothyroidism, unspecified; E66.01 Morbid (severe) obesity due to excess calories | CPT/HCPCS: A9270 ==

== ENCOUNTER 2021-08-15 00:43 | Day surgery (SDC) | payer OTHER | END 2021-08-15 22:40 | disposition home or self-care (01) | LOC: WOUND 00:43 | DX: L98.492 Non-pressure chronic ulcer of skin of other sites with fat layer exposed (principal); E03.9 Hypothyroidism, unspecified; E66.01 Morbid (severe) obesity due to excess calories; I13.0 Hypertensive heart and chronic kidney disease with heart failure and stage 1 through stage 4 chronic kidney disease, or unspecified chronic kidney disease; I50.9 Heart failure, unspecified; N18.4 Chronic kidney disease, stage 4 (severe); I27.20 Pulmonary hypertension, unspecified | CPT/HCPCS: A9270; G0463 ==

== ENCOUNTER 2021-08-29 01:08 | Day surgery (SDC) | payer OTHER | END 2021-08-29 22:56 | disposition home or self-care (01) | LOC: WOUND 01:08 | DX: L98.492 Non-pressure chronic ulcer of skin of other sites with fat layer exposed (principal); I50.9 Heart failure, unspecified; N18.4 Chronic kidney disease, stage 4 (severe); D63.1 Anemia in chronic kidney disease; E03.9 Hypothyroidism, unspecified; E66.01 Morbid (severe) obesity due to excess calories | CPT/HCPCS: G0463 ==

== ENCOUNTER 2021-10-16 07:59 | Inpatient (IN) | payer OTHER ==
[~2021-10-16] VITALS: Ht 154.9 cm; Wt 158.8 kg
[~2021-10-16 07:59] MED LIST changes: +AURYXIA210 MG PO; +AZIT250 PO; +LEVOTHYROXINE PO; +METO25ER PO; +PHENERGAN25 MG PR; +POTA10T PO; +SPIRIVA RESPIMAT4 G2 PO; +SYMBICORT 16010.2 GM PO; +Vitamin D1000 UNI1 PO
[2021-10-16 08:29] LABS: Source, Urine Catheter
[2021-10-16 08:38] LABS: BASOPHILS ABSOLUTE AUTO 0.05 K/mm3 (0.00-0.23); BASOPHILS PERCENT AUTO 0 % (0-2); EOSINOPHILS ABSOLUTE AUTO 0.04 K/mm3 (0.00-0.68); EOSINOPHILS PERCENT AUTO 0 % (0-6); Hematocrit 36.4 % (33.0-51.0); Hemoglobin 11.8 g/dL (11.5-16.0); IMMATURE GRAN ABSOLUTE AUTO 0.21 K/mm3 (0.00-0.10); IMMATURE GRAN PERCENT AUTO 1 % (0-1); LYMPHOCYTES ABSOLUTE AUTO 0.37 K/mm3 (0.84-5.20); LYMPHOCYTES PERCENT AUTO 2 % (21-46); MONOCYTES ABSOLUTE AUTO 0.65 K/mm3 (0.16-1.47); MONOCYTES PERCENT AUTO 3 % (4-13); Mean Corpuscular HGB 28.9 pg (26.0-34.0); Mean Corpuscular HGB Conc 32.4 g/dL (31.5-36.5); Mean Corpuscular Volume 89 fL (80-100); NEUTROPHILS ABSOLUTE AUTO 21.76 K/mm3 (1.96-9.15); NEUTROPHILS PERCENT AUTO 94 % (41-73); Platelet Count 104 K/mm3 (150-400); RDW Coefficient Variation 13.9 % (11.7-14.2); RDW Standard Deviation 45.4 fL (35.1-46.3); Red Blood Cell Count 4.08 M/mm3 (3.80-5.20); White Blood Cell Count 23.08 K/mm3 (4.00-11.30)
[2021-10-16 08:44] LABS: Appearance, Urine Cloudy (Clear); Bilirubin, Urine Neg (Neg); Blood, Urine 4+ (Neg); Color, Urine Yellow (P-Yellow); Glucose Qualitative, Urine Neg (Neg); Ketones, Urine Neg (Neg); Leukocyte Esterase, Urine 3+ (Neg); Nitrite, Urine Neg (Neg); Protein, Urine 2+ (Neg); Specific Gravity, Urine 1.015 (1.003-1.022); Urobilinogen, Urine NORM (Normal)
[2021-10-16 08:51] LABS: Mean Platelet Volume 13.2 fL (9.1-12.4)
[2021-10-16 08:52] LABS: Albumin, Blood 1.6 g/dL (3.4-5.0); Albumin/Globulin Ratio 0.3 (0.8-1.8); Bun/Creatinine Ratio 19.3 (12.0-20.0); Calcium, Blood 9.1 mg/dL (8.5-10.1); Creatinine, Blood 3.88 mg/dL (0.40-1.00); Globulin, Blood 5.1 g/dL (2.2-4.0); Potassium, Blood 4.3 mmol/L (3.5-5.5); Total Protein, Blood 6.7 g/dL (6.4-8.2)
[2021-10-16 09:03] LABS: White Blood Cells, Urine TNTC /hpf (0-5)
[2021-10-16 09:05] LABS: Bacteria Many /hpf; Squamous Epithelial Cells Few /hpf (Few)
[2021-10-16 09:27] LABS: Influenza A, PCR NEGATIVE (NEGATIVE); Influenza B, PCR NEGATIVE (NEGATIVE); Resp Syncytial Virus, PCR NEGATIVE (NEGATIVE); SARS-Cov-2 (COVID-19) PCR, MMC NEGATIVE (NEGATIVE)
--- NOTE | 2021-10-16 17:13 | NUR ---
SHIFT SUMMARY: PATIENT ADMITTED TO UNIT FROM ED AT 1430 WITH UTI, ACUTE KIDNEY DISEASE, AND SEPSIS SECONDARY TO PNEUMONIA AND UTI. PATIENT COMPLAINED OF SCIATIC PAIN. SHE ALSO STATES SHE HAS BEEN NAUSEOUS AND/OR VOMITING FOR TWO WEEKS AND HAS HAD A POOR APPETITE A RESULT. PATIENT ATE ORANGE SHERBERT AND PUDDING CUP DURING ADMISSION INTAKE AND TOLERATED WELL. PATIENT IS A&O X5 WITH SISTER AT BEDSIDE. SHE IS IN BRIEFS AND PREFERS TO USE HER OWN FROM HOME. SHE STATED LAST TIME SHE WAS ADMITTED SHE HAD A ROMERO AND WOULD PREFER THAT. PATIENT IS ON 2L O2 NC BUT HER BASELINE IS RA. PATIENT PREFERS EXTRA BLANKETS AND A FAN ON HER FACE. PATIENT ATE MOST OF DINNER AND ENJOYED IT - SHE STATED SHE DOES NOT DRINK MILK UNLESS IT IS WITH CEREAL. SHE IS ON CONTINUOUS PULSE OX MONITORING. NO ACUTE EVENTS THIS SHIFT. WILL REPORT TO MARYAN LYNNE.
[2021-10-16 22:05] LABS: Source, Urine Catheter
[2021-10-16 22:20] LABS: Appearance, Urine Hazy (Clear); Bilirubin, Urine Neg (Neg); Blood, Urine 4+ (Neg); Color, Urine Yellow (P-Yellow); Glucose Qualitative, Urine Neg (Neg); Ketones, Urine Neg (Neg); Leukocyte Esterase, Urine 3+ (Neg); Nitrite, Urine Neg (Neg); Protein, Urine 2+ (Neg); Urobilinogen, Urine NORM (Normal)
--- NOTE | 2021-10-16 22:37 | NUR ---
ASSUMED CARE OF PATIENT AT 1900. A/OX4. CHRONIC R SCIATIC BACK PAIN. OBESITY WITH GENERALIZED DECONDITIONING. MAINTAINS OVER 95% ON 2L NC (BASELINE IS RA). LUNG SOUNDS CLEAR UPPER AND DIM AT BASES. TELEMETRY SHOWING AFIB AVG 80'S. PT REQUESTED ROMERO D/T PAIN WITH TURNING AND THE URGENCY/FREQ - ROMERO DRAINING TO GRAVITY CLOUDY YELLOW URINE. PATIENT HAS BLE DRYING/SCALING OF THE SKIN, AND REDNESS/OPEN AREAS IN SKIN FOLDS. SBP IN 110'S AND MAP ABOVE 65. WILL UPDATE CHANGES OCCUR.
[2021-10-16 23:29] LABS: Bacteria Many /hpf; Squamous Epithelial Cells Few /hpf (Few); White Blood Cells, Urine 50-100 /hpf (0-5)
[2021-10-17 05:08] LABS: BASOPHILS ABSOLUTE AUTO 0.02 K/mm3 (0.00-0.23); BASOPHILS PERCENT AUTO 0 % (0-2); EOSINOPHILS ABSOLUTE AUTO 0.22 K/mm3 (0.00-0.68); EOSINOPHILS PERCENT AUTO 2 % (0-6); Hematocrit 32.6 % (33.0-51.0); Hemoglobin 10.2 g/dL (11.5-16.0); IMMATURE GRAN ABSOLUTE AUTO 0.09 K/mm3 (0.00-0.10); IMMATURE GRAN PERCENT AUTO 1 % (0-1); LYMPHOCYTES ABSOLUTE AUTO 0.49 K/mm3 (0.84-5.20); LYMPHOCYTES PERCENT AUTO 4 % (21-46); MONOCYTES ABSOLUTE AUTO 0.97 K/mm3 (0.16-1.47); MONOCYTES PERCENT AUTO 8 % (4-13); Mean Corpuscular HGB Conc 31.3 g/dL (31.5-36.5); Mean Corpuscular Volume 93 fL (80-100); NEUTROPHILS ABSOLUTE AUTO 10.11 K/mm3 (1.96-9.15); NEUTROPHILS PERCENT AUTO 85 % (41-73); Platelet Count 96 K/mm3 (150-400); RDW Coefficient Variation 14.1 % (11.7-14.2); Red Blood Cell Count 3.52 M/mm3 (3.80-5.20)
[2021-10-17 05:29] LABS: Albumin, Blood 1.4 g/dL (3.4-5.0); Albumin/Globulin Ratio 0.3 (0.8-1.8); Bilirubin, Total 0.6 mg/dL (0.1-1.0); Bun/Creatinine Ratio 20.5 (12.0-20.0); Calcium, Blood 8.6 mg/dL (8.5-10.1); Creatinine, Blood 3.61 mg/dL (0.40-1.00); Globulin, Blood 4.4 g/dL (2.2-4.0); Magnesium, Blood 2.1 mg/dL (1.6-2.4); Potassium, Blood 4.2 mmol/L (3.5-5.5); Total Protein, Blood 5.8 g/dL (6.4-8.2)
[2021-10-17 05:41] LABS: Mean Platelet Volume 13.4 fL (9.1-12.4)
[2021-10-17] MEDS ORDERED: ANTIFUNGAL POWD71 GM TOP (14:30)
[2021-10-17] MEDS ORDERED: Acetaminophen325 M1 PO (14:41)
[2021-10-17] MEDS ORDERED: ALKA-SELTZER P1 EA19 PO (14:42)
[2021-10-17] MEDS ORDERED: BUME2 PO (14:46)
[2021-10-17] MEDS ORDERED: PROM25 PO (14:47)
--- NOTE | 2021-10-17 16:54 | NUR ---
SHIFT SUMMARY PATIENT IS ALERT AND ORIENTED X4. PATIENT WAS A TRANSFER FROM PCU 14 IN THE MORNING. PATIENT HAS HAD NO ACUTE EVENTS THIS SHIFT. PATIENT REFUSED TO WORK WITH PT AND OT TODAY AND WILL TRY TOMORROW. VITAL SIGNS REVIEWED. CALL LIGHT IN PLACE. WILL MONITOR UNTIL SHIFT CHANGE.
--- NOTE | 2021-10-18 04:03 | NUR ---
PATIENT WAS ALERT AND ORIENTED X4, VITAL SIGNS WHERE STABLE, PATIENT OF COMPLAINED OF SCIATIC PAIN AND WAS GIVEN NORCO. PATIENT SLEPT THROUGH THE NIGHT WITH NO ACUTE CHANGES. CALL LIGHT WITH IN REACH AND BED PUT IN THE LOWEST POSITION.
[2021-10-18 09:41] LABS: BASOPHILS ABSOLUTE AUTO 0.02 K/mm3 (0.00-0.23); BASOPHILS PERCENT AUTO 0 % (0-2); EOSINOPHILS ABSOLUTE AUTO 0.16 K/mm3 (0.00-0.68); EOSINOPHILS PERCENT AUTO 2 % (0-6); Hematocrit 34.7 % (33.0-51.0); Hemoglobin 10.8 g/dL (11.5-16.0); IMMATURE GRAN ABSOLUTE AUTO 0.11 K/mm3 (0.00-0.10); IMMATURE GRAN PERCENT AUTO 1 % (0-1); LYMPHOCYTES ABSOLUTE AUTO 0.57 K/mm3 (0.84-5.20); LYMPHOCYTES PERCENT AUTO 6 % (21-46); MONOCYTES ABSOLUTE AUTO 0.68 K/mm3 (0.16-1.47); MONOCYTES PERCENT AUTO 7 % (4-13); Mean Corpuscular HGB Conc 31.1 g/dL (31.5-36.5); Mean Corpuscular Volume 93 fL (80-100); Mean Platelet Volume 12.5 fL (9.1-12.4); NEUTROPHILS ABSOLUTE AUTO 7.99 K/mm3 (1.96-9.15); NEUTROPHILS PERCENT AUTO 84 % (41-73); Platelet Count 116 K/mm3 (150-400); RDW Coefficient Variation 14.3 % (11.7-14.2); RDW Standard Deviation 48.4 fL (35.1-46.3); Red Blood Cell Count 3.73 M/mm3 (3.80-5.20); White Blood Cell Count 9.53 K/mm3 (4.00-11.30)
[2021-10-18 10:13] LABS: Albumin, Blood 1.5 g/dL (3.4-5.0); Albumin/Globulin Ratio 0.3 (0.8-1.8); Bilirubin, Total 0.5 mg/dL (0.1-1.0); Creatinine, Blood 3.34 mg/dL (0.40-1.00); Globulin, Blood 4.3 g/dL (2.2-4.0); Magnesium, Blood 2.4 mg/dL (1.6-2.4); Phosphorus, Blood 3.8 mg/dL (2.5-4.9); Potassium, Blood 4.4 mmol/L (3.5-5.5); Total Protein, Blood 5.8 g/dL (6.4-8.2)
--- NOTE | 2021-10-18 17:03 | NUR ---
SHIFT SUMMARY PATIENT IS ALERT AND ORIENTATED X4. PATIENT IS PLEASANT AND COOPERATIVE WITH CARE. PATIENT HAS WORKED WITH PT AND AMBULATED BACK AND FORTH FROM BED TO CHAIR WITH ASSISTANCE AND NO INCIDENTS. NO ACUTE EVENTS THIS SHIFT. VITAL SIGNS REVIEWED. WILL MONTIOR UNTIL SHIFT CHANGE.
--- NOTE | 2021-10-19 04:59 | NUR ---
SHIFT SUMMARY PT WAS ADMITTED FOR SEPSIS SECONDARY TO UTI.DNR STATUS. PT IS A&OX3. PT WAS PLACED ON CONTACT ISOLATION DUE TO POSITIVE URINE CULTURE. PT IS RESTING COMFORTABLY IN BED. BED IN LOWER POSITION AND CALL ELAINE IN REACH.VITALS SIGNS REVIEWED.WILL CONTINUE TO MONITOR UNTIL SHIFT CHANGE.
[2021-10-19 09:34] LABS: BASOPHILS ABSOLUTE AUTO 0.03 K/mm3 (0.00-0.23); BASOPHILS PERCENT AUTO 0 % (0-2); EOSINOPHILS ABSOLUTE AUTO 0.16 K/mm3 (0.00-0.68); EOSINOPHILS PERCENT AUTO 2 % (0-6); Hematocrit 32.1 % (33.0-51.0); Hemoglobin 9.9 g/dL (11.5-16.0); IMMATURE GRAN ABSOLUTE AUTO 0.07 K/mm3 (0.00-0.10); IMMATURE GRAN PERCENT AUTO 1 % (0-1); LYMPHOCYTES ABSOLUTE AUTO 0.59 K/mm3 (0.84-5.20); LYMPHOCYTES PERCENT AUTO 8 % (21-46); MONOCYTES ABSOLUTE AUTO 0.56 K/mm3 (0.16-1.47); MONOCYTES PERCENT AUTO 8 % (4-13); Mean Corpuscular HGB 28.5 pg (26.0-34.0); Mean Corpuscular HGB Conc 30.8 g/dL (31.5-36.5); Mean Corpuscular Volume 93 fL (80-100); Mean Platelet Volume 12.7 fL (9.1-12.4); NEUTROPHILS ABSOLUTE AUTO 6.05 K/mm3 (1.96-9.15); NEUTROPHILS PERCENT AUTO 81 % (41-73); Platelet Count 129 K/mm3 (150-400); RDW Coefficient Variation 14.1 % (11.7-14.2); RDW Standard Deviation 47.5 fL (35.1-46.3); Red Blood Cell Count 3.47 M/mm3 (3.80-5.20); White Blood Cell Count 7.46 K/mm3 (4.00-11.30)
[2021-10-19 09:50] LABS: Albumin, Blood 1.4 g/dL (3.4-5.0); Albumin/Globulin Ratio 0.3 (0.8-1.8); Bilirubin, Total 0.5 mg/dL (0.1-1.0); Bun/Creatinine Ratio 20.7 (12.0-20.0); Calcium, Blood 7.9 mg/dL (8.5-10.1); Creatinine, Blood 3.19 mg/dL (0.40-1.00); Globulin, Blood 4.3 g/dL (2.2-4.0); Magnesium, Blood 2.2 mg/dL (1.6-2.4); Phosphorus, Blood 3.8 mg/dL (2.5-4.9); Potassium, Blood 4.7 mmol/L (3.5-5.5); Total Protein, Blood 5.7 g/dL (6.4-8.2)
--- NOTE | 2021-10-19 16:33 | NUR ---
SHIFT SUMMARY NO ACUTE CHANGES THIS SHIFT. PT HAS BEEN UP INDEPENDENT IN THE ROOM. DR AND PT REACHED AN AGREEMENT THAT SHE CAN BE RELEASED ON THURSDAY BACK TO HER ASSISTED LIVING FASCILITY. SHE IS FREE FROM PAIN, NO SOB, AND AXO RESPONDING APPROPRIATELY. WILL CONTINUE TO MONITOR.
--- NOTE | 2021-10-20 04:42 | NUR ---
SHIFT SUMMARY PT IS A0X3 .NO NEW CONCERN FOR THIS SHIFT, THE PLAN IS FOR PATIENT TO BE RELEASED ON THURSDAY BACK TO HER ASSISTED LIVING. WILL CONTINUE TO MONITOR.
[2021-10-20 04:43] LABS: BASOPHILS ABSOLUTE AUTO 0.02 K/mm3 (0.00-0.23); BASOPHILS PERCENT AUTO 0 % (0-2); EOSINOPHILS ABSOLUTE AUTO 0.16 K/mm3 (0.00-0.68); EOSINOPHILS PERCENT AUTO 3 % (0-6); Hematocrit 30.7 % (33.0-51.0); Hemoglobin 9.6 g/dL (11.5-16.0); IMMATURE GRAN ABSOLUTE AUTO 0.09 K/mm3 (0.00-0.10); IMMATURE GRAN PERCENT AUTO 1 % (0-1); LYMPHOCYTES ABSOLUTE AUTO 0.83 K/mm3 (0.84-5.20); LYMPHOCYTES PERCENT AUTO 13 % (21-46); MONOCYTES ABSOLUTE AUTO 0.61 K/mm3 (0.16-1.47); MONOCYTES PERCENT AUTO 10 % (4-13); Mean Corpuscular HGB 28.7 pg (26.0-34.0); Mean Corpuscular HGB Conc 31.3 g/dL (31.5-36.5); Mean Corpuscular Volume 92 fL (80-100); Mean Platelet Volume 12.6 fL (9.1-12.4); NEUTROPHILS PERCENT AUTO 73 % (41-73); Platelet Count 150 K/mm3 (150-400); RDW Coefficient Variation 13.8 % (11.7-14.2); RDW Standard Deviation 46.4 fL (35.1-46.3); Red Blood Cell Count 3.35 M/mm3 (3.80-5.20); White Blood Cell Count 6.31 K/mm3 (4.00-11.30)
[2021-10-20 05:05] LABS: Calcium, Blood 8.3 mg/dL (8.5-10.1); Creatinine, Blood 3.15 mg/dL (0.40-1.00); Potassium, Blood 4.9 mmol/L (3.5-5.5)
--- NOTE | 2021-10-20 16:34 | NUR ---
SHIFT SUMMARY PT WAS ABLE TO FINISH HER IV ANTIBIOTICS. NEW IV WAS STARTED ON LEFT WRIST TO HELP PT COMPLETE REGIMEN. SHE IS EAGERLY ANTICIPATING GOING BACK TO HER FASCILITY TOMORROW. WILL CONTINUE TO MONITOR.
--- NOTE | 2021-10-21 04:30 | NUR ---
A/OX4. O2: 2L. PT HAS 20G PIV IN LF. WRIST. DIET: REG. ROMERO THAT WILL BE DC'd PRIOR TO DISCHARGE AND WILL DC 11/10 TO [facility]. NEEDS NYSTATIN AND MICONAZOLE TALC TO NUMEROUS FOLDS.
[2021-10-21 05:31] LABS: BASOPHILS ABSOLUTE AUTO 0.02 K/mm3 (0.00-0.23); BASOPHILS PERCENT AUTO 0 % (0-2); EOSINOPHILS ABSOLUTE AUTO 0.21 K/mm3 (0.00-0.68); EOSINOPHILS PERCENT AUTO 3 % (0-6); Hemoglobin 10.4 g/dL (11.5-16.0); IMMATURE GRAN ABSOLUTE AUTO 0.11 K/mm3 (0.00-0.10); IMMATURE GRAN PERCENT AUTO 2 % (0-1); LYMPHOCYTES ABSOLUTE AUTO 0.74 K/mm3 (0.84-5.20); LYMPHOCYTES PERCENT AUTO 11 % (21-46); MONOCYTES ABSOLUTE AUTO 0.53 K/mm3 (0.16-1.47); MONOCYTES PERCENT AUTO 8 % (4-13); Mean Corpuscular HGB 28.9 pg (26.0-34.0); Mean Corpuscular HGB Conc 32.5 g/dL (31.5-36.5); Mean Corpuscular Volume 89 fL (80-100); NEUTROPHILS ABSOLUTE AUTO 5.16 K/mm3 (1.96-9.15); NEUTROPHILS PERCENT AUTO 76 % (41-73); RDW Coefficient Variation 13.6 % (11.7-14.2); RDW Standard Deviation 44.1 fL (35.1-46.3); White Blood Cell Count 6.77 K/mm3 (4.00-11.30)
[2021-10-21 05:45] LABS: Mean Platelet Volume 13.1 fL (9.1-12.4)
[2021-10-21 06:12] LABS: Albumin, Blood 1.4 g/dL (3.4-5.0); Albumin/Globulin Ratio 0.3 (0.8-1.8); Bilirubin, Total 0.7 mg/dL (0.1-1.0); Bun/Creatinine Ratio 21.9 (12.0-20.0); C-REACTIVE PROTEIN, EXT RANGE 4.65 mg/dL (0.000-0.300); Creatinine, Blood 2.83 mg/dL (0.40-1.00); Globulin, Blood 4.3 g/dL (2.2-4.0); Potassium, Blood 5.6 mmol/L (3.5-5.5); Total Protein, Blood 5.7 g/dL (6.4-8.2)
[2021-10-21 07:35] LABS: Platelet Count 107 K/mm3 (150-400)
[2021-10-21] MEDS ORDERED: AZIT500 PO (11:28)
[2021-10-21] MEDS ORDERED: ALBU90OI INH (11:42)
[2021-10-21] MEDS ORDERED: Humibid-LA 600600 MG PO (11:45)
[2021-10-21] MEDS ORDERED: LACT PO (11:46)
[2021-10-21] MEDS ORDERED: ONDA4ODT MM (11:46)
[2021-10-21] MEDS ORDERED: LORCET 5-325 M1 EACH PO (11:47)
[2021-10-21 13:08] LABS: Influenza A, PCR NEGATIVE (NEGATIVE); Influenza B, PCR NEGATIVE (NEGATIVE); Resp Syncytial Virus, PCR NEGATIVE (NEGATIVE); SARS-Cov-2 (COVID-19) PCR, MMC NEGATIVE (NEGATIVE)
--- NOTE | 2021-10-21 15:42 | NUR ---
DISCHARGE SUMMARY PT DISCHARGE TODAY AT 1531. PT TRANSPORTED BACK TO [facility] VIA AMBULANCE SERVICE. PT IS AAOX4, ABLE TO MAKE NEEDS KNOWN, PLEASANT AND COOPERATIVE TO CARE. NO CONCERNS OR ISSUES NOTED TO PT PRIOR TO DC. PT REQUIRES SBA WITH FWW. PT VERBALIZED UNDERSTANDING OF DISCHARGE ORDERS. ROMERO DISCONTINUED PRIOR TO DC. PT ABLE TO USE BSC WITH ASSISTANCE. DENIES ANY URINARY DISCOMFORT. IV LINE DISCONTINUED PRIOR TO DC. REPORT GIVEN TO MIRIAM AT [facility] VIA PHONE CALL. DISCHARGE PAPERWORK GIVEN TO PT UPON DC.
--- NOTE | 2021-10-21 15:50 | NUR ---
Received referral from nurse daycare assistant (Sury Bell) on 10/21/2021. Patient is to discharge with orders for home health and elected [facility]. Met with patient to further discuss the above. Patient is agreeable to the above. Discussed homebound status definition with patient. Patient verbalized understanding. Discussed what home health is vs what it is not (in home caregivers/housekeeping). Patient verbalized understanding. Discussed the next steps in the process of an initial assessment to determine frequency of visits. Again patient verbalized understanding. Offered a chance for patient to ask questions regarding the above of which there were none. Gathered all supporting documentation for referral (face sheet, face to face, med list, H&P, discharge summary, and most recent PT assessment) and sent to [facility] for review. No further interventions required. Taniya Castellano Referral Liaison
== END 2021-10-21 15:22 | disposition home health service (06) | DRG 871 ==
LOC: ER 07:59 → PCU 11:09 → MEDS 11:09 → PCU 14:12 → MEDS 10-17 11:53 → ENPENDDIS 10-21 11:16 → MEDS 10-21 15:22
PROVIDERS: Emergency Medicine; Internal Medicine; Nurse Practitioner Acute Care; ADMIT Family Medicine
DX: A41.51 Sepsis due to Escherichia coli [E. coli] (principal); J18.9 Pneumonia, unspecified organism; J96.21 Acute and chronic respiratory failure with hypoxia; I50.32 Chronic diastolic (congestive) heart failure; N17.9 Acute kidney failure, unspecified; N39.0 Urinary tract infection, site not specified; I13.0 Hypertensive heart and chronic kidney disease with heart failure and stage 1 through stage 4 chronic kidney disease, or unspecified chronic kidney disease; E66.2 Morbid (severe) obesity with alveolar hypoventilation; Z68.44 Body mass index [BMI] 60.0-69.9, adult; Z66 Do not resuscitate; Z20.822 Contact with and (suspected) exposure to COVID-19; R65.20 Severe sepsis without septic shock; D69.6 Thrombocytopenia, unspecified; N18.9 Chronic kidney disease, unspecified; J45.909 Unspecified asthma, uncomplicated; I27.20 Pulmonary hypertension, unspecified; D63.1 Anemia in chronic kidney disease; E03.9 Hypothyroidism, unspecified; Z90.89 Acquired absence of other organs; Z98.891 History of uterine scar from previous surgery; Z98.890 Other specified postprocedural states; Z79.899 Other long term (current) drug therapy
CPT/HCPCS: 0241U; 36415; 51701; 51703; 71045; 71250; 80048; 80053; 81001; 82550; 82947; 83605; 83735; 83880; 84100; 84132; 84145; 85025; 86140; 87040; 87077; 87086; 87186; 87449; 94640; 94664; 94667; 94668; 94760; 94761; 94762; 96361-59; 96365-59; 96375-59; 97110; 97162; 97165; 97530; 99285-25; A9270; J0456; J0696; J1644; J1815; J2185; J2405; J7030; J7040; J7050; Q9967

== ENCOUNTER 2022-02-21 13:50 | Emergency (ER) | payer OTHER ==
[~2022-02-21] VITALS: Ht 154.9 cm; Wt 149.7 kg
[~2022-02-21 13:50] MED LIST changes: +ALKA-SELTZER P1 EA19 PO; +ANTIFUNGAL POWD71 GM TOP; +AZIT500 PO; +Acetaminophen325 M1 PO; +Humibid-LA 600600 MG PO; +LACT PO; +LORCET 5-325 M1 EACH PO; +ONDA4ODT MM; +PROM25 PO
[2022-02-21 15:53] LABS: BASOPHILS ABSOLUTE AUTO 0.02 K/mm3 (0.00-0.23); BASOPHILS PERCENT AUTO 0 % (0-2); EOSINOPHILS ABSOLUTE AUTO 0.23 K/mm3 (0.00-0.68); EOSINOPHILS PERCENT AUTO 4 % (0-6); Hematocrit 39.2 % (33.0-51.0); Hemoglobin 12.5 g/dL (11.5-16.0); IMMATURE GRAN ABSOLUTE AUTO 0.02 K/mm3 (0.00-0.10); IMMATURE GRAN PERCENT AUTO 0 % (0-1); LYMPHOCYTES ABSOLUTE AUTO 0.48 K/mm3 (0.84-5.20); LYMPHOCYTES PERCENT AUTO 9 % (21-46); MONOCYTES ABSOLUTE AUTO 0.41 K/mm3 (0.16-1.47); MONOCYTES PERCENT AUTO 8 % (4-13); Mean Corpuscular HGB Conc 31.9 g/dL (31.5-36.5); Mean Corpuscular Volume 97 fL (80-100); Mean Platelet Volume 12.7 fL (9.1-12.4); NEUTROPHILS ABSOLUTE AUTO 4.31 K/mm3 (1.96-9.15); NEUTROPHILS PERCENT AUTO 79 % (41-73); Platelet Count 82 K/mm3 (150-400); RDW Coefficient Variation 12.7 % (11.7-14.2); RDW Standard Deviation 45.5 fL (35.1-46.3); Red Blood Cell Count 4.03 M/mm3 (3.80-5.20); White Blood Cell Count 5.47 K/mm3 (4.00-11.30)
[2022-02-21 16:06] LABS: Bun/Creatinine Ratio 23.2 (12.0-20.0); Calcium, Blood 9.2 mg/dL (8.5-10.1); Creatinine, Blood 3.23 mg/dL (0.40-1.00); Potassium, Blood 3.9 mmol/L (3.5-5.5)
[2022-02-21 16:37] LABS: Source, Urine Straight Cath
[2022-02-21 16:48] LABS: Appearance, Urine Cloudy (Clear); Bilirubin, Urine Neg (Neg); Blood, Urine 2+ (Neg); Glucose Qualitative, Urine Neg (Neg); Ketones, Urine Neg (Neg); Leukocyte Esterase, Urine 3+ (Neg); Nitrite, Urine Neg (Neg); Protein, Urine 2+ (Neg); Urobilinogen, Urine NORM (Normal)
[2022-02-21 16:50] LABS: Color, Urine Pale Yellow (P-Yellow)
[2022-02-21 16:58] LABS: Hyaline Casts 0-2 /lpf (0-2)
[2022-02-21 16:59] LABS: White Blood Cells, Urine TNTC /hpf (0-5)
[2022-02-21 17:00] LABS: Bacteria Many /hpf; Red Blood Cells, Urine Rare /hpf (0-2); Squamous Epithelial Cells Rare /hpf (Few)
[2022-02-21] MEDS ORDERED: BACTRIM 400-801 EACH PO (17:57)
== END 2022-02-21 22:05 | disposition home or self-care (01) ==
LOC: ER 13:50
PROVIDERS: Emergency Medicine
DX: L03.115 Cellulitis of right lower limb (principal); N39.0 Urinary tract infection, site not specified; Z79.899 Other long term (current) drug therapy; N18.4 Chronic kidney disease, stage 4 (severe); E03.9 Hypothyroidism, unspecified; E66.01 Morbid (severe) obesity due to excess calories; I13.0 Hypertensive heart and chronic kidney disease with heart failure and stage 1 through stage 4 chronic kidney disease, or unspecified chronic kidney disease; I50.32 Chronic diastolic (congestive) heart failure; Z87.891 Personal history of nicotine dependence
CPT/HCPCS: 36415; 80048; 81001; 85025; 87077; 87086; 87186; 96374; 99283-25; J0696

== ENCOUNTER 2022-08-15 02:13 | Day surgery (SDC) | payer OTHER ==
[~2022-08-15 02:13] MED LIST changes: +BACTRIM 400-801 EACH PO
[2022-08-15 09:40] LABS: BASOPHILS ABSOLUTE AUTO 0.03 K/mm3 (0.00-0.23); BASOPHILS PERCENT AUTO 0 % (0-2); EOSINOPHILS PERCENT AUTO 5 % (0-6); Hematocrit 34.8 % (33.0-51.0); Hemoglobin 11.5 g/dL (11.5-16.0); IMMATURE GRAN ABSOLUTE AUTO 0.02 K/mm3 (0.00-0.10); IMMATURE GRAN PERCENT AUTO 0 % (0-1); LYMPHOCYTES ABSOLUTE AUTO 0.77 K/mm3 (0.84-5.20); LYMPHOCYTES PERCENT AUTO 11 % (21-46); MONOCYTES ABSOLUTE AUTO 0.35 K/mm3 (0.16-1.47); MONOCYTES PERCENT AUTO 5 % (4-13); Mean Corpuscular HGB 31.5 pg (26.0-34.0); Mean Corpuscular Volume 95 fL (80-100); Mean Platelet Volume 12.5 fL (9.1-12.4); NEUTROPHILS ABSOLUTE AUTO 5.79 K/mm3 (1.96-9.15); NEUTROPHILS PERCENT AUTO 79 % (41-73); Platelet Count 147 K/mm3 (150-400); RDW Coefficient Variation 13.2 % (11.7-14.2); RDW Standard Deviation 46.7 fL (35.1-46.3); Red Blood Cell Count 3.65 M/mm3 (3.80-5.20); White Blood Cell Count 7.36 K/mm3 (4.00-11.30)
[2022-08-15 10:10] LABS: Albumin, Blood 2.8 g/dL (3.4-5.0); Albumin/Globulin Ratio 0.8 (0.8-1.8); Bilirubin, Total 0.8 mg/dL (0.1-1.0); Bun/Creatinine Ratio 21.2 (12.0-20.0); C-REACTIVE PROTEIN, EXT RANGE 0.5 mg/dL (0.000-0.300); Calcium, Blood 8.7 mg/dL (8.5-10.1); Creatinine, Blood 2.92 mg/dL (0.40-1.00); Globulin, Blood 3.7 g/dL (2.2-4.0); Total Protein, Blood 6.5 g/dL (6.4-8.2)
[2022-08-15] MEDS ORDERED: ELIQUIS2.5 M1 PO (11:47)
[2022-08-15] MEDS ORDERED: BISA10S PR (11:50)
[2022-08-15] MEDS ORDERED: Cyclobenzaprine5 MG PO (11:52)
== END 2022-08-15 09:04 | disposition home or self-care (01) ==
LOC: ATC 02:13
PROVIDERS: Internal Medicine
DX: N39.0 Urinary tract infection, site not specified (principal); I13.0 Hypertensive heart and chronic kidney disease with heart failure and stage 1 through stage 4 chronic kidney disease, or unspecified chronic kidney disease; I50.9 Heart failure, unspecified; N18.30 Chronic kidney disease, stage 3 unspecified; E78.5 Hyperlipidemia, unspecified; I48.0 Paroxysmal atrial fibrillation; Z79.01 Long term (current) use of anticoagulants; Z79.899 Other long term (current) drug therapy
CPT/HCPCS: 80053; 85025; 86140; 96365; C1751; J1335

== ENCOUNTER 2022-08-16 02:11 | Day surgery (SDC) | payer OTHER ==
[~2022-08-16 02:11] MED LIST changes: +BISA10S PR; +Cyclobenzaprine5 MG PO; +ELIQUIS2.5 M1 PO
== END 2022-08-16 08:50 | disposition home or self-care (01) ==
LOC: ATC 02:11
DX: N39.0 Urinary tract infection, site not specified (principal); I13.0 Hypertensive heart and chronic kidney disease with heart failure and stage 1 through stage 4 chronic kidney disease, or unspecified chronic kidney disease; N18.30 Chronic kidney disease, stage 3 unspecified; I50.9 Heart failure, unspecified; I48.0 Paroxysmal atrial fibrillation; E66.01 Morbid (severe) obesity due to excess calories; Z79.01 Long term (current) use of anticoagulants
CPT/HCPCS: 96365; J1335

== ENCOUNTER 2022-08-17 02:17 | Day surgery (SDC) | payer OTHER | END 2022-08-17 09:00 | disposition home or self-care (01) | LOC: ATC 02:17 | DX: N39.0 Urinary tract infection, site not specified (principal); I13.0 Hypertensive heart and chronic kidney disease with heart failure and stage 1 through stage 4 chronic kidney disease, or unspecified chronic kidney disease; I50.9 Heart failure, unspecified; N18.30 Chronic kidney disease, stage 3 unspecified; E78.5 Hyperlipidemia, unspecified; I48.0 Paroxysmal atrial fibrillation; Z79.01 Long term (current) use of anticoagulants; Z79.899 Other long term (current) drug therapy | CPT/HCPCS: 96365; J1335 ==

== ENCOUNTER 2022-08-19 00:30 | Day surgery (SDC) | payer OTHER | END 2022-08-19 09:06 | disposition home or self-care (01) | LOC: ATC 00:30 | DX: N39.0 Urinary tract infection, site not specified (principal); B96.20 Unspecified Escherichia coli [E. coli] as the cause of diseases classified elsewhere; Z16.12 Extended spectrum beta lactamase (ESBL) resistance; E78.5 Hyperlipidemia, unspecified; I48.0 Paroxysmal atrial fibrillation; I13.0 Hypertensive heart and chronic kidney disease with heart failure and stage 1 through stage 4 chronic kidney disease, or unspecified chronic kidney disease; I50.9 Heart failure, unspecified; N18.30 Chronic kidney disease, stage 3 unspecified; Z79.01 Long term (current) use of anticoagulants; Z79.899 Other long term (current) drug therapy | CPT/HCPCS: J1335 ==

== ENCOUNTER 2022-08-20 02:19 | Day surgery (SDC) | payer OTHER | END 2022-08-20 08:46 | disposition home or self-care (01) | LOC: ATC 02:19 | DX: N39.0 Urinary tract infection, site not specified (principal); B96.20 Unspecified Escherichia coli [E. coli] as the cause of diseases classified elsewhere; Z16.12 Extended spectrum beta lactamase (ESBL) resistance; I13.0 Hypertensive heart and chronic kidney disease with heart failure and stage 1 through stage 4 chronic kidney disease, or unspecified chronic kidney disease; I50.9 Heart failure, unspecified; N18.30 Chronic kidney disease, stage 3 unspecified; E78.5 Hyperlipidemia, unspecified; I48.0 Paroxysmal atrial fibrillation; Z79.899 Other long term (current) drug therapy | CPT/HCPCS: J1335 ==

== ENCOUNTER 2022-08-21 00:13 | Day surgery (SDC) | payer OTHER | END 2022-08-21 08:41 | disposition home or self-care (01) | LOC: ATC 00:13 | DX: N39.0 Urinary tract infection, site not specified (principal); B96.20 Unspecified Escherichia coli [E. coli] as the cause of diseases classified elsewhere; Z16.12 Extended spectrum beta lactamase (ESBL) resistance; I13.0 Hypertensive heart and chronic kidney disease with heart failure and stage 1 through stage 4 chronic kidney disease, or unspecified chronic kidney disease; I50.9 Heart failure, unspecified; N18.30 Chronic kidney disease, stage 3 unspecified; E78.5 Hyperlipidemia, unspecified; I48.0 Paroxysmal atrial fibrillation; Z79.01 Long term (current) use of anticoagulants; Z79.899 Other long term (current) drug therapy | CPT/HCPCS: J1335 ==

== ENCOUNTER 2022-08-22 02:58 | Day surgery (SDC) | payer OTHER ==
[2022-08-22 09:16] LABS: BASOPHILS ABSOLUTE AUTO 0.02 K/mm3 (0.00-0.23); BASOPHILS PERCENT AUTO 0 % (0-2); EOSINOPHILS ABSOLUTE AUTO 0.45 K/mm3 (0.00-0.68); EOSINOPHILS PERCENT AUTO 6 % (0-6); Hematocrit 33.8 % (33.0-51.0); Hemoglobin 11.2 g/dL (11.5-16.0); IMMATURE GRAN ABSOLUTE AUTO 0.02 K/mm3 (0.00-0.10); IMMATURE GRAN PERCENT AUTO 0 % (0-1); LYMPHOCYTES ABSOLUTE AUTO 0.66 K/mm3 (0.84-5.20); LYMPHOCYTES PERCENT AUTO 9 % (21-46); MONOCYTES ABSOLUTE AUTO 0.29 K/mm3 (0.16-1.47); MONOCYTES PERCENT AUTO 4 % (4-13); Mean Corpuscular HGB 31.7 pg (26.0-34.0); Mean Corpuscular HGB Conc 33.1 g/dL (31.5-36.5); Mean Corpuscular Volume 96 fL (80-100); Mean Platelet Volume 12.6 fL (9.1-12.4); NEUTROPHILS ABSOLUTE AUTO 5.64 K/mm3 (1.96-9.15); NEUTROPHILS PERCENT AUTO 80 % (41-73); Platelet Count 140 K/mm3 (150-400); RDW Coefficient Variation 13.2 % (11.7-14.2); RDW Standard Deviation 46.3 fL (35.1-46.3); Red Blood Cell Count 3.53 M/mm3 (3.80-5.20); White Blood Cell Count 7.08 K/mm3 (4.00-11.30)
[2022-08-22 09:46] LABS: Alanine Aminotransfer (ALT/SGP 27 U/L (12-78); Albumin, Blood 2.7 g/dL (3.4-5.0); Albumin/Globulin Ratio 0.7 (0.8-1.8); Alk Phos 113 U/L (50-136); Anion Gap 6 mmol/L (6-16); Aspartate Aminotrans (AST/SGOT 34 U/L (12-37); Bilirubin, Total 0.6 mg/dL (0.1-1.0); Blood Urea Nitrogen 59 mg/dL (8-24); Bun/Creatinine Ratio 20.6 (12.0-20.0); C-REACTIVE PROTEIN, EXT RANGE 0.568 mg/dL (0.000-0.300); CO2, Blood 31 mmol/L (21-32); Calcium, Blood 8.5 mg/dL (8.5-10.1); Chloride, Blood 102 mmol/L (98-108); Creatinine, Blood 2.86 mg/dL (0.40-1.00); Globulin, Blood 3.9 g/dL (2.2-4.0); Glomerular Filtration Rate 18 (60-); Glucose, Blood 125 mg/dL (70-99); Phosphorus, Blood 4.4 mg/dL (2.5-4.9); Sodium, Blood 139 mmol/L (136-145); Total Protein, Blood 6.6 g/dL (6.4-8.2)
--- NOTE | 2022-08-22 09:58 | NUR ---
RESULTS FROM TODAY'S LABS FAXED TO DR. ALEJANDRO'S OFFICE.
== END 2022-08-22 08:35 | disposition home or self-care (01) ==
LOC: ATC 02:58
PROVIDERS: Internal Medicine
DX: N39.0 Urinary tract infection, site not specified (principal); B96.20 Unspecified Escherichia coli [E. coli] as the cause of diseases classified elsewhere; E66.01 Morbid (severe) obesity due to excess calories; I13.0 Hypertensive heart and chronic kidney disease with heart failure and stage 1 through stage 4 chronic kidney disease, or unspecified chronic kidney disease; I50.9 Heart failure, unspecified; N18.30 Chronic kidney disease, stage 3 unspecified; I48.0 Paroxysmal atrial fibrillation; Z79.01 Long term (current) use of anticoagulants
CPT/HCPCS: 80053; 84100; 85018; 85025; 86140; J1335

== ENCOUNTER 2022-08-23 00:59 | Day surgery (SDC) | payer OTHER | END 2022-08-23 09:05 | disposition home or self-care (01) | LOC: ATC 00:59 | DX: N39.0 Urinary tract infection, site not specified (principal); B96.20 Unspecified Escherichia coli [E. coli] as the cause of diseases classified elsewhere; Z16.12 Extended spectrum beta lactamase (ESBL) resistance; I13.0 Hypertensive heart and chronic kidney disease with heart failure and stage 1 through stage 4 chronic kidney disease, or unspecified chronic kidney disease; I50.9 Heart failure, unspecified; N18.30 Chronic kidney disease, stage 3 unspecified; E78.5 Hyperlipidemia, unspecified; I48.0 Paroxysmal atrial fibrillation; Z79.899 Other long term (current) drug therapy | CPT/HCPCS: J1335 ==

== ENCOUNTER 2022-08-24 00:19 | Day surgery (SDC) | payer OTHER | END 2022-08-24 09:00 | disposition home or self-care (01) | LOC: ATC 00:19 | DX: N39.0 Urinary tract infection, site not specified (principal); B96.20 Unspecified Escherichia coli [E. coli] as the cause of diseases classified elsewhere; I13.0 Hypertensive heart and chronic kidney disease with heart failure and stage 1 through stage 4 chronic kidney disease, or unspecified chronic kidney disease; N18.30 Chronic kidney disease, stage 3 unspecified; I50.9 Heart failure, unspecified; I48.0 Paroxysmal atrial fibrillation; E66.01 Morbid (severe) obesity due to excess calories; Z79.01 Long term (current) use of anticoagulants | CPT/HCPCS: J1335 ==

== ENCOUNTER → 2022-08-25 | Outpatient (CLI) | payer OTHER | END | disposition home or self-care (01) | LOC: LAB 12:00 → LAB SHORT 12:00 | DX: N39.0 Urinary tract infection, site not specified (principal) | CPT/HCPCS: 87077; 87086; 87186 ==

== ENCOUNTER → 2022-09-12 | Outpatient (CLI) | payer OTHER ==
[~2022-09-12] MED LIST changes: +Prednisone20 MG PO
[2022-09-12 13:18] LABS: Source, Urine Voided
[2022-09-12 14:19] LABS: Appearance, Urine Hazy (Clear); Bilirubin, Urine Neg (Neg); Blood, Urine 2+ (Neg); Glucose Qualitative, Urine Neg (Neg); Ketones, Urine Neg (Neg); Leukocyte Esterase, Urine 3+ (Neg); Nitrite, Urine Neg (Neg); Protein, Urine 1+ (Neg); Urobilinogen, Urine NORM (Normal)
[2022-09-12 14:27] LABS: Color, Urine Pale Yellow (P-Yellow)
[2022-09-12 14:28] LABS: Bacteria Mod /hpf; Hyaline Casts 0-2 /lpf (0-2); RBC Cast 0-2 /lpf (0); Squamous Epithelial Cells Few /hpf (Few); White Blood Cells, Urine 25-50 /hpf (0-5)
== END | disposition home or self-care (01) ==
LOC: LAB 13:15 → LAB SHORT 13:15
PROVIDERS: Family Medicine
DX: N39.0 Urinary tract infection, site not specified (principal)
CPT/HCPCS: 81001; 87077; 87086; 87186

== ENCOUNTER 2022-09-20 15:48 | Emergency (ER) | payer OTHER ==
[~2022-09-20] VITALS: Ht 154.9 cm; Wt 150.6 kg
[~2022-09-20 15:48] MED LIST changes: -Prednisone20 MG PO
[2022-09-20 16:52] LABS: BASOPHILS ABSOLUTE AUTO 0.02 K/mm3 (0.00-0.23); BASOPHILS PERCENT AUTO 0 % (0-2); EOSINOPHILS ABSOLUTE AUTO 0.97 K/mm3 (0.00-0.68); EOSINOPHILS PERCENT AUTO 9 % (0-6); Hematocrit 38.5 % (33.0-51.0); Hemoglobin 12.7 g/dL (11.5-16.0); IMMATURE GRAN ABSOLUTE AUTO 0.09 K/mm3 (0.00-0.10); IMMATURE GRAN PERCENT AUTO 1 % (0-1); LYMPHOCYTES ABSOLUTE AUTO 0.76 K/mm3 (0.84-5.20); LYMPHOCYTES PERCENT AUTO 7 % (21-46); MONOCYTES ABSOLUTE AUTO 0.47 K/mm3 (0.16-1.47); MONOCYTES PERCENT AUTO 5 % (4-13); Mean Corpuscular HGB 30.8 pg (26.0-34.0); Mean Corpuscular Volume 93 fL (80-100); Mean Platelet Volume 11.8 fL (9.1-12.4); NEUTROPHILS ABSOLUTE AUTO 7.96 K/mm3 (1.96-9.15); NEUTROPHILS PERCENT AUTO 78 % (41-73); Platelet Count 222 K/mm3 (150-400); RDW Coefficient Variation 13.2 % (11.7-14.2); Red Blood Cell Count 4.12 M/mm3 (3.80-5.20); White Blood Cell Count 10.27 K/mm3 (4.00-11.30)
[2022-09-20 17:08] LABS: C-REACTIVE PROTEIN, EXT RANGE 0.88 mg/dL (0.000-0.300)
[2022-09-20 17:10] LABS: Albumin, Blood 2.8 g/dL (3.4-5.0); Albumin/Globulin Ratio 0.7 (0.8-1.8); Bilirubin, Total 0.5 mg/dL (0.1-1.0); Bun/Creatinine Ratio 16.4 (12.0-20.0); Calcium, Blood 8.7 mg/dL (8.5-10.1); Creatinine, Blood 3.96 mg/dL (0.40-1.00); Globulin, Blood 3.9 g/dL (2.2-4.0); Potassium, Blood 5.1 mmol/L (3.5-5.5); Total Protein, Blood 6.7 g/dL (6.4-8.2)
[2022-09-20] MEDS ORDERED: Prednisone20 MG PO (18:47)
[2022-09-20] MEDS ORDERED: BENADRYL25 MG PO (18:47)
== END 2022-09-20 19:45 | disposition home or self-care (01) ==
LOC: ER 15:48
PROVIDERS: Physician Assistant
DX: L27.0 Generalized skin eruption due to drugs and medicaments taken internally (principal); T37.0X5A Adverse effect of sulfonamides, initial encounter; N17.9 Acute kidney failure, unspecified; I13.0 Hypertensive heart and chronic kidney disease with heart failure and stage 1 through stage 4 chronic kidney disease, or unspecified chronic kidney disease; I50.30 Unspecified diastolic (congestive) heart failure; N18.4 Chronic kidney disease, stage 4 (severe); E03.9 Hypothyroidism, unspecified; E66.9 Obesity, unspecified; Z79.899 Other long term (current) drug therapy; Z87.891 Personal history of nicotine dependence
CPT/HCPCS: 36415; 80053; 83690; 85025; 85651; 86140; J2405; J2930; J7030

== ENCOUNTER 2023-08-17 00:07 | Day surgery (SDC) | payer OTHER ==
[~2023-08-17 00:07] MED LIST changes: +NITR100CA PO; +Prednisone20 MG PO
[2023-08-17 10:01] VITALS: BP 116/40
== END 2023-08-17 11:31 | disposition home or self-care (01) ==
LOC: ATC 00:07
DX: N39.0 Urinary tract infection, site not specified (principal); I12.9 Hypertensive chronic kidney disease with stage 1 through stage 4 chronic kidney disease, or unspecified chronic kidney disease; N18.4 Chronic kidney disease, stage 4 (severe); D63.1 Anemia in chronic kidney disease; N25.81 Secondary hyperparathyroidism of renal origin; Z79.899 Other long term (current) drug therapy
CPT/HCPCS: 82565; 96365; J1335

== ENCOUNTER 2023-08-20 07:47 | Day surgery (SDC) | payer OTHER ==
[2023-08-20 09:36] VITALS: BP 109/63
== END 2023-08-20 09:55 | disposition home or self-care (01) ==
LOC: ATC 07:47
DX: N39.0 Urinary tract infection, site not specified (principal); I12.9 Hypertensive chronic kidney disease with stage 1 through stage 4 chronic kidney disease, or unspecified chronic kidney disease; N18.4 Chronic kidney disease, stage 4 (severe); D63.1 Anemia in chronic kidney disease; N25.81 Secondary hyperparathyroidism of renal origin; Z79.899 Other long term (current) drug therapy
CPT/HCPCS: 96365; J1335

== ENCOUNTER 2023-08-21 00:29 | Day surgery (SDC) | payer OTHER ==
[2023-08-21 09:24] VITALS: BP 106/70
== END 2023-08-21 09:42 | disposition home or self-care (01) ==
LOC: ATC 00:29
DX: N39.0 Urinary tract infection, site not specified (principal); N18.4 Chronic kidney disease, stage 4 (severe); I12.9 Hypertensive chronic kidney disease with stage 1 through stage 4 chronic kidney disease, or unspecified chronic kidney disease; D63.1 Anemia in chronic kidney disease; D50.9 Iron deficiency anemia, unspecified; I73.9 Peripheral vascular disease, unspecified
CPT/HCPCS: 96374; J1335

== ENCOUNTER → 2024-08-25 | Outpatient (CLI) | payer OTHER ==
[2024-08-25 11:27] LABS: Source, Urine Voided
[2024-08-25 14:03] LABS: Appearance, Urine Hazy (Clear); Bilirubin, Urine Neg (Neg); Blood, Urine 2+ (Neg); Color, Urine Yellow (P-Yellow); Glucose Qualitative, Urine Neg (Neg); Ketones, Urine Neg (Neg); Leukocyte Esterase, Urine 3+ (Neg); Nitrite, Urine Neg (Neg); Protein, Urine 1+ (Neg); Urobilinogen, Urine NORM (Normal)
[2024-08-25 14:25] LABS: White Blood Cells, Urine 50-100 /hpf (0-5)
[2024-08-25 14:26] LABS: Bacteria Many /hpf; Red Blood Cells, Urine 0-2 /hpf (0-2); Squamous Epithelial Cells Few /hpf (Few)
== END ==
LOC: LAB 11:24 → LAB SHORT 11:24
DX: N39.0 Urinary tract infection, site not specified (principal)
CPT/HCPCS: 81001; 87077; 87086; 87186

== ENCOUNTER 2024-09-20 06:36 | Emergency (ER) | payer OTHER ==
[~2024-09-20] VITALS: Ht 154.9 cm; Wt 140.2 kg
[2024-09-20] MEDS ORDERED: Morphine Sulfate 4 MG/1 ML Injection IV ONE (07:10)
[2024-09-20] MEDS ORDERED: Ondansetron HCl 2 MG / ML 2ML Vial IV ONE (07:10)
[2024-09-20 07:54] LABS: Source, Urine Straight Cath
[2024-09-20 08:01] LABS: Bilirubin, Urine Neg (Neg); Blood, Urine Neg (Neg); Glucose Qualitative, Urine Neg (Neg); Ketones, Urine Neg (Neg); Leukocyte Esterase, Urine 3+ (Neg); Nitrite, Urine Pos (Neg); Protein, Urine 1+ (Neg); Urobilinogen, Urine NORM (Normal)
[2024-09-20 08:10] LABS: Appearance, Urine Hazy (Clear); Color, Urine Yellow (P-Yellow)
[2024-09-20 08:13] LABS: Bacteria Mod /hpf; Red Blood Cells, Urine 0-2 /hpf (0-2); Squamous Epithelial Cells Few /hpf (Few); White Blood Cells, Urine 50-100 /hpf (0-5)
[2024-09-20 08:18] LABS: BASOPHILS ABSOLUTE AUTO 0.03 K/mm3 (0.00-0.23); BASOPHILS PERCENT AUTO 1 % (0-2); EOSINOPHILS ABSOLUTE AUTO 0.12 K/mm3 (0.00-0.68); EOSINOPHILS PERCENT AUTO 2 % (0-6); Hematocrit 37.1 % (33.0-51.0); Hemoglobin 11.8 g/dL (11.5-16.0); IMMATURE GRAN ABSOLUTE AUTO 0.03 K/mm3 (0.00-0.10); IMMATURE GRAN PERCENT AUTO 1 % (0-1); LYMPHOCYTES ABSOLUTE AUTO 0.71 K/mm3 (0.84-5.20); LYMPHOCYTES PERCENT AUTO 14 % (21-46); MONOCYTES PERCENT AUTO 8 % (4-13); Mean Corpuscular HGB Conc 31.8 g/dL (31.5-36.5); Mean Corpuscular Volume 97 fL (80-100); Mean Platelet Volume 11.3 fL (9.1-12.4); NEUTROPHILS ABSOLUTE AUTO 3.95 K/mm3 (1.96-9.15); NEUTROPHILS PERCENT AUTO 75 % (41-73); Platelet Count 137 K/mm3 (150-400); RDW Coefficient Variation 13.1 % (11.7-14.2); RDW Standard Deviation 46.8 fL (35.1-46.3); Red Blood Cell Count 3.81 M/mm3 (3.80-5.20); White Blood Cell Count 5.24 K/mm3 (4.00-11.30)
[2024-09-20 08:27] LABS: Albumin, Blood 2.5 g/dL (3.4-5.0); Albumin/Globulin Ratio 0.7 (0.8-1.8); Bilirubin, Total 0.5 mg/dL (0.1-1.0); Bun/Creatinine Ratio 23.4 (12.0-20.0); Calcium, Blood 8.9 mg/dL (8.5-10.1); Creatinine, Blood 2.39 mg/dL (0.40-1.00); Globulin, Blood 3.6 g/dL (2.2-4.0); Potassium, Blood 4.6 mmol/L (3.5-5.5); Total Protein, Blood 6.1 g/dL (6.4-8.2)
[2024-09-20] MEDS ORDERED: NS 1,000 ML IV SCH (09:40)
[2024-09-20] MEDS ORDERED: Amoxicillin/Clavulanate K 875 MG Tab PO ONE (10:20)
[2024-09-20] MEDS ORDERED: Phenazopyridine HCl 100 MG Tab PO ONE (10:20)
[2024-09-20] MEDS ORDERED: AMOCLA875 PO (10:27)
[2024-09-20 11:09] VITALS: BP 102/68
== END 2024-09-20 11:10 | disposition home or self-care (01) ==
LOC: ER 06:36
PROVIDERS: Emergency Medicine
DX: N39.0 Urinary tract infection, site not specified (principal); I13.0 Hypertensive heart and chronic kidney disease with heart failure and stage 1 through stage 4 chronic kidney disease, or unspecified chronic kidney disease; N18.4 Chronic kidney disease, stage 4 (severe); I50.32 Chronic diastolic (congestive) heart failure; E03.9 Hypothyroidism, unspecified; Z87.891 Personal history of nicotine dependence; Z79.01 Long term (current) use of anticoagulants; Z79.899 Other long term (current) drug therapy; Z88.1 Allergy status to other antibiotic agents
CPT/HCPCS: 51701; 74177; 80053; 81001; 83690; 85025; 87077; 87086; 87186; 93005; 93010; 96374; 96375; 99284-25; A9270; J2270; J2405; J7030; Q9967

== ENCOUNTER → 2025-02-20 | Outpatient (CLI) | payer OTHER ==
[~2025-02-20] MED LIST changes: +AMOCLA875 PO
[2025-02-20 14:30] LABS: Appearance, Urine Hazy (Clear); Bilirubin, Urine Neg (Neg); Blood, Urine 3+ (Neg); Glucose Qualitative, Urine Neg (Neg); Ketones, Urine Neg (Neg); Leukocyte Esterase, Urine 2+ (Neg); Nitrite, Urine Pos (Neg); Protein, Urine 1+ (Neg); Urobilinogen, Urine NORM (Normal)
[2025-02-20 14:47] LABS: Color, Urine Pale Yellow (P-Yellow)
[2025-02-20 14:48] LABS: Bacteria Many /hpf; Squamous Epithelial Cells Few /hpf (Few)
== END ==
LOC: LAB SHORT 09:30 → LAB 09:30
PROVIDERS: Physician Assistant
DX: N39.0 Urinary tract infection, site not specified (principal)
CPT/HCPCS: 81001; 87077; 87086; 87186

== ENCOUNTER → 2025-03-09 | Outpatient (CLI) | payer OTHER ==
[2025-03-09 16:38] LABS: Source, Urine Voided
[2025-03-09 17:33] LABS: Appearance, Urine Clear (Clear); Bilirubin, Urine Neg (Neg); Blood, Urine 5+ (Neg); Glucose Qualitative, Urine Neg (Neg); Ketones, Urine Neg (Neg); Leukocyte Esterase, Urine 3+ (Neg); Nitrite, Urine Pos (Neg); Protein, Urine 1+ (Neg); Urobilinogen, Urine NORM (Normal)
[2025-03-09 17:50] LABS: Color, Urine Pale Yellow (P-Yellow)
[2025-03-09 17:51] LABS: Bacteria Mod /hpf; Squamous Epithelial Cells Few /hpf (Few); White Blood Cells, Urine 25-50 /hpf (0-5)
== END ==
LOC: LAB SHORT 16:36 → LAB 16:36
PROVIDERS: Physician Assistant
DX: N39.0 Urinary tract infection, site not specified (principal)
CPT/HCPCS: 81001; 87077; 87086; 87186

== ENCOUNTER → 2025-05-31 | Outpatient (CLI) | payer OTHER ==
[2025-05-31 17:46] LABS: Bilirubin, Urine Neg (Neg); Color, Urine Yellow (P-Yellow); Glucose Qualitative, Urine Neg (Neg); Ketones, Urine Neg (Neg); Leukocyte Esterase, Urine 3+ (Neg); Protein, Urine 1+ (Neg); Specific Gravity, Urine 1.010 (1.003-1.022); Urobilinogen, Urine 1+ (Normal)
[2025-05-31 18:04] LABS: White Blood Cells, Urine 25-50 /hpf (0-5)
== END ==
LOC: LAB SHORT 16:06 → LAB 16:06
PROVIDERS: Physician Assistant
DX: N39.0 Urinary tract infection, site not specified (principal)
CPT/HCPCS: 81001; 87077; 87086; 87186

== ENCOUNTER → 2025-08-09 | Outpatient (CLI) | payer OTHER ==
[2025-08-09 14:39] LABS: Bilirubin, Urine Neg (Neg); Color, Urine Yellow (P-Yellow); Glucose Qualitative, Urine Neg (Neg); Ketones, Urine Neg (Neg); Leukocyte Esterase, Urine 3+ (Neg); Protein, Urine 1+ (Neg); Specific Gravity, Urine 1.010 (1.003-1.022); Urobilinogen, Urine 1+ (Normal)
[2025-08-09 14:54] LABS: Red Blood Cells, Urine 0-2 /hpf (0-2)
[2025-08-09 14:55] LABS: White Blood Cells, Urine 25-50 /hpf (0-5)
== END ==
LOC: LAB SHORT 13:54 → LAB 13:54
PROVIDERS: Physician Assistant
DX: N39.0 Urinary tract infection, site not specified (principal)
CPT/HCPCS: 81001; 87077; 87086; 87186

== ENCOUNTER → 2025-09-06 | Outpatient (CLI) | payer OTHER ==
[2025-09-06 16:27] LABS: Bilirubin, Urine Neg (Neg); Color, Urine Yellow (P-Yellow); Glucose Qualitative, Urine Neg (Neg); Ketones, Urine Neg (Neg); Leukocyte Esterase, Urine 3+ (Neg); Protein, Urine 1+ (Neg); Specific Gravity, Urine 1.010 (1.003-1.022); Urobilinogen, Urine NORM (Normal)
[2025-09-06 16:33] LABS: White Blood Cells, Urine 25-50 /hpf (0-5)
== END ==
LOC: LAB 13:27 → LAB SHORT 13:27
PROVIDERS: Physician Assistant
DX: N39.0 Urinary tract infection, site not specified (principal)
CPT/HCPCS: 81001; 87077; 87086; 87186

== ENCOUNTER → 2025-10-04 | Outpatient (CLI) | payer OTHER ==
[2025-10-04 17:32] LABS: Bilirubin, Urine Neg (Neg); Color, Urine Yellow (P-Yellow); Glucose Qualitative, Urine Neg (Neg); Ketones, Urine Neg (Neg); Leukocyte Esterase, Urine 3+ (Neg); Protein, Urine 1+ (Neg); Specific Gravity, Urine 1.015 (1.003-1.022); Urobilinogen, Urine NORM (Normal)
[2025-10-04 17:40] LABS: White Blood Cells, Urine TNTC /hpf (0-5)
== END ==
LOC: LAB 11:19 → LAB SHORT 11:19
PROVIDERS: Physician Assistant
DX: N39.0 Urinary tract infection, site not specified (principal)
CPT/HCPCS: 81001; 87077; 87086; 87186

== ENCOUNTER 2025-10-22 18:35 | Inpatient (IN) | payer OTHER ==
[~2025-10-22] VITALS: Ht 154.9 cm; Wt 143.3 kg
[2025-10-22] MEDS ORDERED: Ondansetron HCl 2 MG / ML 2ML Vial IV ONE (21:05)
[2025-10-22] MEDS ORDERED: Morphine Sulfate 4 MG/1 ML Injection IV ONE (21:05)
[2025-10-22] MEDS ORDERED: CeFAZolin Sodium 2,000 MG in NS 100 ML IV ONE (21:10)
[2025-10-22 22:04] LABS: BASOPHILS ABSOLUTE AUTO 0.01 K/mm3 (0.00-0.23); BASOPHILS PERCENT AUTO 0 % (0-2); EOSINOPHILS ABSOLUTE AUTO 0.04 K/mm3 (0.00-0.68); EOSINOPHILS PERCENT AUTO 1 % (0-6); Hematocrit 35.8 % (33.0-51.0); Hemoglobin 11.7 g/dL (11.5-16.0); IMMATURE GRAN ABSOLUTE AUTO 0.03 K/mm3 (0.00-0.10); IMMATURE GRAN PERCENT AUTO 1 % (0-1); LYMPHOCYTES ABSOLUTE AUTO 0.39 K/mm3 (0.84-5.20); LYMPHOCYTES PERCENT AUTO 6 % (21-46); MONOCYTES ABSOLUTE AUTO 0.42 K/mm3 (0.16-1.47); MONOCYTES PERCENT AUTO 6 % (4-13); Mean Corpuscular HGB Conc 32.7 g/dL (31.5-36.5); Mean Corpuscular Volume 95 fL (80-100); NEUTROPHILS ABSOLUTE AUTO 5.76 K/mm3 (1.96-9.15); NEUTROPHILS PERCENT AUTO 87 % (41-73); NRBC ABSOLUTE 0.00 K/mm3 (0.00-0.02); NRBC Auto 0.0 /100 WBC (0.0-0.2); Platelet Count 117 K/mm3 (150-400); RDW Coefficient Variation 13.2 % (11.7-14.2); RDW Standard Deviation 46.0 fL (35.1-46.3)
[2025-10-22 22:22] LABS: Alanine Aminotransfer (ALT/SGP 24.0 U/L (12-78); Albumin, Blood 2.9 g/dL (3.4-5.0); Albumin/Globulin Ratio 0.9 (0.8-1.8); Anion Gap 9.0 mmol/L (3-11); Aspartate Aminotrans (AST/SGOT 26.0 U/L (12-37); Bilirubin, Total 0.6 mg/dL (0.1-1.0); Blood Urea Nitrogen 98.0 mg/dL (8-24); CO2, Blood 42.0 mmol/L (21-32); Calcium, Blood 11.3 mg/dL (8.5-10.1); Chloride, Blood 82.0 mmol/L (98-108); Creatinine, Blood 3.52 mg/dL (0.40-1.00); Globulin, Blood 3.4 g/dL (2.2-4.0); Glucose, Blood 181.0 mg/dL (70-99); Potassium, Blood 3.3 mmol/L (3.5-5.5); Sodium, Blood 130.0 mmol/L (136-145); Total Protein, Blood 6.3 g/dL (6.4-8.2)
[2025-10-22] MEDS ORDERED: Naloxone HCl 0.4MG / ML 1ML Vial IV PRN (22:30)
[2025-10-22] MEDS ORDERED: Ondansetron HCl 2 MG / ML 2ML Vial IV PRN (22:30)
[2025-10-22] MEDS ORDERED: FLU VACC TS2025-26(6MOS UP)/PF 45 MCG/0.5 ML SYRINGE IM SCH (22:35)
[2025-10-22] MEDS ORDERED: Morphine Sulfate 4 MG/1 ML Injection IV PRN (22:35)
[2025-10-22] MEDS ORDERED: NS 1,000 ML IV SCH (23:00)
[2025-10-23] VITALS (18 sets, daily range): BP systolic 113–150; BP diastolic 56–97
[2025-10-23 05:21] LABS: BASOPHILS ABSOLUTE AUTO 0.01 K/mm3 (0.00-0.23); BASOPHILS PERCENT AUTO 0 % (0-2); EOSINOPHILS ABSOLUTE AUTO 0.03 K/mm3 (0.00-0.68); EOSINOPHILS PERCENT AUTO 1 % (0-6); Hematocrit 37.3 % (33.0-51.0); Hemoglobin 12.6 g/dL (11.5-16.0); IMMATURE GRAN ABSOLUTE AUTO 0.03 K/mm3 (0.00-0.10); IMMATURE GRAN PERCENT AUTO 1 % (0-1); LYMPHOCYTES ABSOLUTE AUTO 0.45 K/mm3 (0.84-5.20); LYMPHOCYTES PERCENT AUTO 7 % (21-46); MONOCYTES ABSOLUTE AUTO 0.50 K/mm3 (0.16-1.47); MONOCYTES PERCENT AUTO 8 % (4-13); Mean Corpuscular HGB Conc 33.8 g/dL (31.5-36.5); Mean Corpuscular Volume 94 fL (80-100); NEUTROPHILS ABSOLUTE AUTO 5.43 K/mm3 (1.96-9.15); NEUTROPHILS PERCENT AUTO 84 % (41-73); NRBC ABSOLUTE 0.00 K/mm3 (0.00-0.02); NRBC Auto 0.0 /100 WBC (0.0-0.2); Platelet Count 101 K/mm3 (150-400); RDW Coefficient Variation 13.2 % (11.7-14.2); RDW Standard Deviation 44.9 fL (35.1-46.3)
[2025-10-23 05:24] LABS: Prothrombin Time Results 11.4 Sec (9.7-11.5)
--- NOTE | 2025-10-23 07:17 | NUR ---
SHIFT SUMMARY ADMITTED TONIGHT FOR OPEN R WRIST FX. SPLINT PLACED IN ER. PT ABLE TO SLIGHTLY WIGGLE THUMB,INDEX & MIDDLE FINGER. REPORTS NUMBESS TO R PINKY FINGER. CAP REFILL <3 SEC. REPORTED PAIN 15/10, MEDICATED 1x W/4MG IV MORPHINE & PT HAS DENIED FURTHER NEED FOR PAIN MEDICATION. AOX4. VSS. SPO2 >90% ON 1L O2. DENIES DYSPNEA. DOESNT WEAR O2 @BASELINE. DIM BS. HAS BEEN NPO SINCE 0000. REPORTS LAST TIME TOOK ELIQUIS WAS 10/22. PUREWICK IN PLACE, VOIDING CLEAR YELLOW URINE. AWAITING SURGEON CONSULT FOR POSSIBLE SURGERY. CALL LIGHT IN REACH.
[2025-10-23] MEDS ORDERED: Darbepoetin (Pharmacy Consult) SC SCH (07:30)
[2025-10-23 07:43] LABS: Alanine Aminotransfer (ALT/SGP 24.0 U/L (12-78); Albumin, Blood 3.0 g/dL (3.4-5.0); Albumin/Globulin Ratio 0.8 (0.8-1.8); Anion Gap 12.0 mmol/L (3-11); Aspartate Aminotrans (AST/SGOT 24.0 U/L (12-37); Bilirubin, Total 0.5 mg/dL (0.1-1.0); Blood Urea Nitrogen 99.0 mg/dL (8-24); CO2, Blood 40.0 mmol/L (21-32); Calcium, Blood 11.5 mg/dL (8.5-10.1); Chloride, Blood 84.0 mmol/L (98-108); Creatinine, Blood 3.45 mg/dL (0.40-1.00); Globulin, Blood 3.8 g/dL (2.2-4.0); Glucose, Blood 154.0 mg/dL (70-99); Magnesium, Blood 5.1 mg/dL (1.6-2.4); Potassium, Blood 3.5 mmol/L (3.5-5.5); Sodium, Blood 132.0 mmol/L (136-145); Total Protein, Blood 6.8 g/dL (6.4-8.2)
[2025-10-23] MEDS ORDERED: NS 1,000 ML IV SCH ×3 (07:50→08:55)
[2025-10-23] MEDS ORDERED: CeFAZolin Sodium 2,000 MG in NS 100 ML IV SCH (08:00)
--- NOTE | 2025-10-23 08:17 | NUR ---
[facility]
--- NOTE | 2025-10-23 08:48 | NUR ---
PATIENT TO SDS. AGREES WITH PLANNED SURGERY. LUNG SOUNDS CLEAR. History, Chart, Medications and Allergies reviewed before start of procedure. Patient confirms NPO status and agrees with scheduled surgery. ELECTROLYTES ABNORMAL, SURGEON AND ANESTHESIA AWARE. DRESSING C/D/I TO RIGHT ARM.
[2025-10-23] MEDS ORDERED: Lactobacil 2-S.Thermo-Bifido 1 1 Cap PO SCH (09:00)
[2025-10-23] MEDS ORDERED: Bupivacaine 0.5% W/EPI 1:200000 SDV 30 ML Vial ONE (09:04)
[2025-10-23] MEDS ORDERED: Etomidate 2MG / ML 10ML Vial ONE ×2 (09:12)
[2025-10-23] MEDS ORDERED: FentaNYL Citrate 50 MCG/ML 2 ML Injection ONE ×2 (09:31→11:53)
[2025-10-23] MEDS ORDERED: Dexamethasone Sod Phos 10 MG/ML 1ML VIAL ONE (09:32)
[2025-10-23] MEDS ORDERED: Ondansetron HCl 2 MG / ML 2ML Vial ONE ×2 (09:32→11:47)
[2025-10-23] MEDS ORDERED: Rocuronium Bromide 10 MG/ML 5ML Injection IV ONE (09:32)
--- NOTE | 2025-10-23 09:55 | NUR ---
10/23/25 0955 Terri Ellison NO PREOP ANTIBIOTICS ORDERED PER PATIENT IS ON SCHEDULED ANTIBIOTICS. ANCEF 2GM IV STARTED PRIOR TO ARRIVAL IN THE OR AT 0841.
[2025-10-23] MEDS ORDERED: HYDROmorphone HCl/Pf 1MG SYR IV PRN ×2 (10:05→13:15)
[2025-10-23] MEDS ORDERED: FentaNYL Citrate 50 MCG/ML 2 ML Injection IV PRN ×3 (10:05)
[2025-10-23] MEDS ORDERED: Ondansetron HCl 2 MG / ML 2ML Vial IV PRN (10:05)
[2025-10-23] MEDS ORDERED: HYDROmorphone HCl/Pf 1MG SYR ONE (11:53)
[2025-10-23] MEDS ORDERED: Prochlorperazine Edisylate 10 mg Vial IV PRN (13:05)
--- NOTE | 2025-10-23 15:30 | NUR ---
PER DR MELENDREZ ORDER STAT CPK, IF NORMAL CANCEL TOMORROWS CPK LAB. IF ABNORMAL, PARVIN WANTING CALL BACK FOR UPDATE.
--- NOTE | 2025-10-23 19:07 | NUR ---
SHIFT SUMMARY A/OX4, ABLE TO MAKE NEEDS KNOWN. POD #0 ORIF OF R. WRIST. MEDICATED FOR PAIN AND NAUSEA X1. SOFT SPLINT AND ROSALIE WRAP TO R. WRIST C/D/I. 24 HOUR URINE STARTED. PUREWICK IN PLACE. NS INFUSING AT 50. NO ACUTE CHANGES AT THIS TIME.
--- NOTE | 2025-10-24 02:19 | NUR ---
OXYGEN DESAT EVENT. AT 0218 PT'S CONTINUOUS BIOX WAS ALARMING, THIS RN CHECKED ON PT AND NOTICED O2 SATS 87% WITH GOOD PLETH READING. PT HAD REMOVED OXYGEN TUBING AND WAS ON RA. THIS RN AWOKE PT AND ENCOURAGED DEEP BREATHING AND PLACED 1L VIA N/C BACK ON PT. PT REPORTED SHE HAD TAKEN TUBING OFF IT WAS BOTHERING HER. EDUCATION PROVIDED ON NEED FOR PROPER OXYGENATION. PT AGREED TO WEAR OXYGEN. SATS RETURNED TO 95% ON 1L AND DEEP BREATHING.
[2025-10-24 04:59] LABS: Hematocrit 38.2 % (33.0-51.0); Hemoglobin 12.1 g/dL (11.5-16.0)
[2025-10-24 05:44] VITALS: BP 134/72
[2025-10-24 06:19] LABS: Albumin, Blood 2.8 g/dL (3.4-5.0); Anion Gap 11 mmol/L (3-11); Blood Urea Nitrogen 95 mg/dL (8-24); CO2, Blood 38 mmol/L (21-32); Calcium, Blood 10.8 mg/dL (8.5-10.1); Chloride, Blood 87 mmol/L (98-108); Creatinine, Blood 3.38 mg/dL (0.40-1.00); Glucose, Blood 147 mg/dL (70-99); Magnesium, Blood 4.4 mg/dL (1.6-2.4); Phosphorus, Blood 5.2 mg/dL (2.5-4.9); Potassium, Blood 3.7 mmol/L (3.5-5.5); Sodium, Blood 132 mmol/L (136-145); Thyroid Stimulating Hormone 1.700 uIU/mL (0.360-4.800); Uric Acid, Blood 11.2 mg/dL (2.6-6.0)
--- NOTE | 2025-10-24 06:19 | NUR ---
SHIFT SUMMARY NOC. PT POD 1 FOR RIGHT WRIST ORIF. PT MEDICATED FOR PAIN WITH OXYCODONE AND TYLENOL X1 THIS SHIFT WITH REPORTED RELIEF. R WRIST HAS SOFT SPLINT WITH ROSALIE WRAP C/D/I. BRUISING NOTED ON HAND/FINGERS. PT ABLE TO WIGGLE FINGERS AND SENSATION INTACT. R WRIST ALSO ELEVATED ON PILLOWS ABOVE HEART LEVEL. 24 HOUR URINE COLLECTION STILL IN PROCESS. PT VOIDING URINE VIA PUREWICK. PT ON 1L VIA N/C, PT DID REMOVE O2 WITH DESAT THIS SHIFT. SEE PREV NOTE. PT MAKES NEEDS KNOWN, CALL LIGHT IN REACH.
[2025-10-24 07:10] LABS: Cortisol, AM 6.0 ug/dL (6.7-22.6)
[2025-10-24 07:18] LABS: Parathyroid Hormone, Intact 17.0 pg/mL (12-88)
--- NOTE | 2025-10-24 07:18 | NUR ---
CALLED DR. MELENDREZ TO VERIFY THAT HE SAW PT LAB RESULTS THIS MORNING. NO NEW ORDERS.
[2025-10-24 07:32] VITALS: BP 127/66
[2025-10-24] MEDS ORDERED: Cosyntropin 0.25 MG / ML 1ML Vial IM ONE (07:50)
--- NOTE | 2025-10-24 10:32 | NUR ---
REPORT RECEIVED FROM GUERA WHEAT AT THIS TIME AND ASSUMED CARE
[2025-10-24 14:46] LABS: Protein, Urine Quantitative 30.5 mg/dL (0.0-11.9)
[2025-10-24 15:52] VITALS: BP 115/67
--- NOTE | 2025-10-24 17:55 | NUR ---
SUMMARY: PT IS POD1 ORIF AND I&D OF WRIST. NO ACUTE CHANGE THIS SHIFT. SURGICAL SITE WNL, ELEVATED. PT HAS HAD MINIMAL PAIN. 24 HR URINE SAMPLE SENT, DR. MELENDREZ FOLLOWING ISABELLE. PT REPORTS FEELING TIRED MOST OF TODAY AND REFUSED PT, AND USING LIFT UP TO THE CHAIR REPORTING "LOW ENERGY" OTHERWISE VSS AND PT USES CALL LIGHT TO MAKE NEEDS KNOWN
[2025-10-24 19:22] VITALS: BP 119/52
[2025-10-25 04:50] VITALS: BP 122/54
[2025-10-25 04:56] LABS: BASOPHILS ABSOLUTE AUTO 0.02 K/mm3 (0.00-0.23); BASOPHILS PERCENT AUTO 0 % (0-2); EOSINOPHILS ABSOLUTE AUTO 0.10 K/mm3 (0.00-0.68); EOSINOPHILS PERCENT AUTO 2 % (0-6); Hematocrit 33.5 % (33.0-51.0); Hemoglobin 10.7 g/dL (11.5-16.0); IMMATURE GRAN ABSOLUTE AUTO 0.01 K/mm3 (0.00-0.10); IMMATURE GRAN PERCENT AUTO 0 % (0-1); LYMPHOCYTES ABSOLUTE AUTO 0.40 K/mm3 (0.84-5.20); LYMPHOCYTES PERCENT AUTO 8 % (21-46); MONOCYTES ABSOLUTE AUTO 0.43 K/mm3 (0.16-1.47); MONOCYTES PERCENT AUTO 9 % (4-13); Mean Corpuscular HGB Conc 31.9 g/dL (31.5-36.5); Mean Corpuscular Volume 97 fL (80-100); NEUTROPHILS ABSOLUTE AUTO 3.88 K/mm3 (1.96-9.15); NEUTROPHILS PERCENT AUTO 80 % (41-73); NRBC ABSOLUTE 0.00 K/mm3 (0.00-0.02); NRBC Auto 0.0 /100 WBC (0.0-0.2); Platelet Count 101 K/mm3 (150-400); RDW Coefficient Variation 13.4 % (11.7-14.2); RDW Standard Deviation 47.5 fL (35.1-46.3)
[2025-10-25 05:15] LABS: Albumin, Blood 2.3 g/dL (3.4-5.0); Anion Gap 6 mmol/L (3-11); Blood Urea Nitrogen 84 mg/dL (8-24); CO2, Blood 38 mmol/L (21-32); Calcium, Blood 9.7 mg/dL (8.5-10.1); Chloride, Blood 94 mmol/L (98-108); Creatinine, Blood 2.68 mg/dL (0.40-1.00); Glucose, Blood 121 mg/dL (70-99); Magnesium, Blood 3.8 mg/dL (1.6-2.4); Phosphorus, Blood 3.5 mg/dL (2.5-4.9); Potassium, Blood 3.6 mmol/L (3.5-5.5); Sodium, Blood 134 mmol/L (136-145)
--- NOTE | 2025-10-25 07:16 | NUR ---
SHIFT SUMMARY POD 2 ORIF OF RIGHT WRIST. 4 CM SHADOWING NOTED ON ROSALIE WRAP/SPLIT . PT C/O SWELLING. ROSALIE REMOVED, REINFORCED WITH GAUZE FOR INCREASED EXUDATE AND REWRAPPED. PT REPORTED RELIEF WITH ROSALIE WRAP CHANGE, ELEVATION AND ICE THERAPY TO RUE. +2 SWELLING NOTED TO RIGHT HAND WITH BRUISING/DISCOLORATION; PT ABLE TO WIGGLE FINGERS. BLE ELEVATED. REPOSITIONED Q 2-4 PT WOULD ALLOW. IVF INFUSING PER ORDERS. REPOSITIONED WITH 2 PERSON MAX, PT ABLE TO ASSIST. IS VOIDING, PUREWICK IN PLACE DRAINING YELLOW URINE. PAIN MANAGED PER EMAR AND NONPHARM INTERVENTIONS. SP02 AT 96% ON 1L NC, CONT BIOX IN PLACE. PT ABLE TO MAKE NEEDS KNOWN. REPORT GIVEN TO DAY RN. PT WATCHING TV IN BED, BEDSIDE REPORT COMPLETE.
[2025-10-25 07:57] VITALS: BP 127/59
[2025-10-25] MEDS ORDERED: CeFAZolin Sodium 2,000 MG in NS 100 ML IV SCH (09:00)
[2025-10-25] MEDS ORDERED: CeFAZolin Sodium 1,000 MG in NS 100 ML IV SCH (09:00)
[2025-10-25 16:36] VITALS: BP 118/62
--- NOTE | 2025-10-25 18:43 | NUR ---
SUMMARY: NO ACUTE CHANGE TODAY, VSS, A/O. SURGICAL SITE WNL. PT DID BETTER WITH THERAPY AND SAT AND EDGE OF BED, MINIMAL PAIN. PLAN IS FOR SNF WHEN AVALIBLE. PT USES CALL LIGHT
[2025-10-25 20:55] VITALS: BP 127/56
[2025-10-26 04:31] VITALS: BP 107/62
--- NOTE | 2025-10-26 04:48 | NUR ---
SHIFT SUMMARY NO ACUTE CHANGES TONIGHT. PT IS S/P RIGHT WRIST ORIF, ROSALIE WRAP AND SOFT SPLINT IN PLACE. ROSALIE REMOVED AND REAPPLIED PER PT REQUEST, SHADOWING NOTED AND REINFORCED. JOVANNI ELEVATED ON PILLOWS AND ICE THERAPY TOLERATED, MED X 1 FOR PAIN PER EMAR. CONTINUES TO HAVE SWELLING AND BRUISING IN HAND/ARM; ABLE TO SLIGHTLY WIGGLE FINGERS DUE TO SWELLING- DENIES N/T. PT ABLE TO ASSIST WITH REPOSITIONING/TURNING, ENCOURAGED Q2 TURNS BUT FREQUENTLY REFUSED DUE TO SLEEPING. LIFT REQUIRED FOR BOOSTS. PUREWICK IN PLACE, ATTENDS CHANGED PRN. YELLOW URINE NOTE IN CANISTER. IVF INFUSING PER ORDERS. AWAITING MORNING LABS. PLAN TO WORK WITH THERAPY WHILE AWAITING PLACEMENT. PT CURRENTLY RESTING IN BED WITH CALL LIGHT IN REACH, CONT BIOX IN PLACE, RESP EVEN ON 1L NC. WILL GIVE REPORT TO ONCOMING RN.
[2025-10-26 05:11] LABS: Hematocrit 34.1 % (33.0-51.0); Hemoglobin 10.7 g/dL (11.5-16.0)
[2025-10-26 05:28] LABS: Albumin, Blood 2.2 g/dL (3.4-5.0); Anion Gap 8 mmol/L (3-11); Blood Urea Nitrogen 81 mg/dL (8-24); CO2, Blood 36 mmol/L (21-32); Calcium, Blood 9.3 mg/dL (8.5-10.1); Chloride, Blood 97 mmol/L (98-108); Creatinine, Blood 2.39 mg/dL (0.40-1.00); Glucose, Blood 117 mg/dL (70-99); Magnesium, Blood 3.2 mg/dL (1.6-2.4); Phosphorus, Blood 1.9 mg/dL (2.5-4.9); Potassium, Blood 3.7 mmol/L (3.5-5.5); Sodium, Blood 137 mmol/L (136-145)
[2025-10-26] MEDS ORDERED: Sodium Phosphate 20 MM in Dextrose 5% 500 ML IV STA (06:11)
[2025-10-26 07:18] VITALS: BP 114/57
[2025-10-26] MEDS ORDERED: Polyethylene Glycol 3350 17 gm PO SCH (12:55)
[2025-10-26] MEDS ORDERED: Sanctura20 MG PO (14:47)
[2025-10-26] MEDS ORDERED: TURMERIC750 MG PO (14:48)
[2025-10-26] MEDS ORDERED: LOPE2C PO (14:49)
[2025-10-26] MEDS ORDERED: DULCOLAX400 MG/5 M PO (14:54)
[2025-10-26 15:21] VITALS: BP 101/86
--- NOTE | 2025-10-26 16:44 | NUR ---
SHIFT SUMMARY/DISCHARGE PATIENT IS POD3 ORIF R WRIST. SOFT CAST WITH ROSALIE WRAP IS C/D/I. SWELLING AND BRUISING NOTED ON R ARM AND DOWN INTO FINGERS. ABLE TO WIGGLE ALL FINGERS AND TOES. CAP REFILL WNL. NWB TO R ARM. PATIENT IS WHEEL CHAIR TRANSFER AT BASELINE. USES LIFT FOR TRANSFERS. INCONT. AND USES PUREWICK. BED BATH DONE TODAY. REDDNESS TO PANNUS AND GROIN, EDIL CARE AND SKIN CARE THIS SHIFT. NEEDED. PATIENT ABLE TO ROLL SIDE TO SIDE. AND LIFT SHOULERS IN BED WITH MINIMAL ASSISTANCE. BOWEL CARE ADMINISTERED. MEDICATED ONE TIME THIS SHIFT FOR PAIN DENIES NEEDS AT THIS TIME. TOLERATING PO INTAKE. VSS, REPORT CALLED INTO TO [facility]. TRANSPORT SCHEDULED FOR 1700.
[2025-10-26 22:01] LABS: ALBUMIN %,URINE 51.9 %; ALPHA-1 %,URINE 0.0 %; ALPHA-2 %,URINE 3.0 %; BETA GLOBULIN %,URINE 45.1 %; GAMMA GLOBULIN %,URINE 0.0 %; HOURS COLLECTED 24 hr; PARAPROTEIN %,URINE 0.0 %; PARAPROTEIN EXCRETION/24 HOUR 0.0
== END 2025-10-26 17:47 | DRG 511 ==
LOC: ER 18:35 → ERHOLD 22:29 → SURS 22:29
PROVIDERS: Internal Medicine Nephrology; Orthopaedic Surgery; Student in an Organized Health Care Education/Training Program; ADMIT Student in an Organized Health Care Education/Training Program
PROC: 0PSK04Z Reposition Right Ulna with Internal Fixation Device, Open Approach (ICD-10-PCS; 2025-10-23)
PROC: 0PSH04Z Reposition Right Radius with Internal Fixation Device, Open Approach (ICD-10-PCS; principal; 2025-10-23 09:00)
DX: S52.501B Unspecified fracture of the lower end of right radius, initial encounter for open fracture type I or II (principal); E66.2 Morbid (severe) obesity with alveolar hypoventilation; I13.0 Hypertensive heart and chronic kidney disease with heart failure and stage 1 through stage 4 chronic kidney disease, or unspecified chronic kidney disease; I50.32 Chronic diastolic (congestive) heart failure; N17.9 Acute kidney failure, unspecified; N18.4 Chronic kidney disease, stage 4 (severe); J96.11 Chronic respiratory failure with hypoxia; Z68.43 Body mass index [BMI] 50.0-59.9, adult; E87.1 Hypo-osmolality and hyponatremia; N25.81 Secondary hyperparathyroidism of renal origin; S52.601B Unspecified fracture of lower end of right ulna, initial encounter for open fracture type I or II; W18.39XA Other fall on same level, initial encounter; E03.9 Hypothyroidism, unspecified; I27.20 Pulmonary hypertension, unspecified; E87.6 Hypokalemia; E86.9 Volume depletion, unspecified; E83.52 Hypercalcemia; E83.41 Hypermagnesemia; D63.1 Anemia in chronic kidney disease; E83.39 Other disorders of phosphorus metabolism; Z86.711 Personal history of pulmonary embolism; Z88.2 Allergy status to sulfonamides; Z88.8 Allergy status to other drugs, medicaments and biological substances; Z79.01 Long term (current) use of anticoagulants; Z79.51 Long term (current) use of inhaled steroids; Z79.890 Hormone replacement therapy; Z79.52 Long term (current) use of systemic steroids; Z87.891 Personal history of nicotine dependence
CPT/HCPCS: 29125; 36415; 73090; 73100; 76770; 80053; 80069; 80400; 82533; 82550; 83735; 83970; 84156; 84166; 84443; 84550; 85014; 85018; 85025; 85610; 86334; 86335; 86850; 86900; 86901; 93005; 93010; 94762; 96365-59; 96375-59; 97110; 97162; 97530; 99285-25; A9270; C1713; J0690; J0780; J0834; J1100; J1171; J2270; J2405; J3010; J7030; J7060